=== PATIENT | female | born 1955 | race Caucasian/White ===

== ENCOUNTER 2016-12-03 19:31 | Inpatient (IN) ==
[2016-12-03] MEDS ORDERED: IPRATROPIUM/ALBUTEROL 3 ML AMPUL.NEB NEB ONE (19:38)
[2016-12-03] MEDS ORDERED: MAGNESIUM SULFATE 2 GM/50 ML BAG IV ONE (20:03)
[2016-12-03] MEDS ORDERED: TERBUTALINE 1 MG/ML VIAL SQ ONE (20:03)
[2016-12-03] MEDS ORDERED: methylPREDNISolone SOD SUCC 125 MG/2 ML VIAL IV ONE (20:03)
[2016-12-03] MEDS ORDERED: 0.9 % SODIUM CHLORIDE 1,000 ML IV ONE (20:03)
[2016-12-03] MEDS ORDERED: ALBUTEROL SULFATE 5 MG/ML NEB SOLUTION BOTTLE NEB ONE (20:04)
--- NOTE | 2016-12-03 20:25 | XRay Report ---
CLINICAL INFORMATION: Dyspnea TECHNIQUE: AP semierect portable chest six COMPARISON: None. FINDINGS: Lungs are negative. No focal pulmonary parenchymal infiltrate or mass. Heart size and vascularity are normal. Mattie and mediastinum are negative. No acute abnormality. IMPRESSION: Negative AP chest x-ray Interpreted and Authenticated by: Sergio Dominguez 12/03/16
[2016-12-03] MEDS ORDERED: MAGNESIUM SULFATE 8.12 MEQ/2 ML VIAL ONE (20:54)
[2016-12-03 21:32] LABS: ALT/SGPT 43 U/l (0-40); Albumin 3.9 gm/dL (3.2-5.2); Albumin/Globulin Ratio 1.4 (1.0-2.3); Alkaline Phosphatase 97 U/L (39-117); Blood Urea Nitrogen 9 mg/dl (8-23); Magnesium 1.8 mg/dL (1.6-2.5)
[2016-12-03] MEDS ORDERED: LORazepam 2 MG/ML VIAL IV ONE (21:39)
[2016-12-03 22:37] LABS: Basophils # (Auto) 0 K/mcL (0.0-0.3); Basophils % (Auto) 0.3 % (0.0-2.0); Eosinophils # (Auto) 0.1 K/mcL (0.0-0.7); Eosinophils % (Auto) 0.8 % (0.0-7.0); Granulocytes % (Auto) 74.5 % (38.0-78.0); Lymphocytes # (Auto) 1.7 K/mcL (1.5-4.8); Mean Cell Volume 75.2 fL (80.0-100.0); Mean Corpuscular HGB Conc 32.3 g/dL (31.0-36.0); Mean Corpuscular Hemoglobin 24.3 pg (26.0-34.0); Monocytes # (Auto) 0.2 K/mcL (0.1-0.9); Monocytes % (Auto) 2.4 % (1.0-12.0); Platelet Count 220 K/mcL (140-440); RBC 4.47 M/mcL (4.00-5.20); Red Cell Distribution Width 14.7 % (11.5-14.5)
[2016-12-03] MEDS ORDERED: ONDANSETRON 4 MG/2 ML VIAL IV PRN (23:38)
[2016-12-03] MEDS ORDERED: ACETAMINOPHEN 325 MG TABLET PO PRN (23:38)
[2016-12-03] MEDS ORDERED: ALBUTEROL SULFATE 2.5 MG/3 ML NEBULIZER NEB PRN (23:41)
[2016-12-03] MEDS ORDERED: 0.9 % SODIUM CHLORIDE 1,000 ML IV SCH (23:45)
[2016-12-04] MEDS ORDERED: BENZONATATE 100 MG CAPSULE PO ONE (00:06)
--- NOTE | 2016-12-04 00:06 | Emergency Department Note ---
SOB HPI - General Chief Complaint: Shortness of Breath/Dyspnea Stated Complaint: shortness of breathe Time Seen by Provider: 12/03/16 19:57 Source: patient, family Mode of arrival: wheelchair Limitations: no limitations - History of Present Illness 61-year-old female comes in with difficulty breathing and cough for the last 3 days. Worsening. Denies fever or home oxygen use. She recently moved here from [place] about 5 months ago and has been not taking any of her home medicines. She plans to establish care with local doctor in 4 days - Related Data Home Medications Medication Instructions Recorded Confirmed ferrous sulfate 325 mg (65 mg 325 mg PO TID tab 10/31/16 10/31/16 iron) tablet fluoxetine 40 mg capsule 80 mg PO QDAY 10/31/16 10/31/16 ipratropium bromide 17 2 inh INHALATION TID g 10/31/16 10/31/16 mcg/actuation HFA aerosol inhaler lisinopril 20 mg tablet 20 mg PO QDAY 10/31/16 10/31/16 lisinopril 20 1 tab PO QDAY 10/31/16 10/31/16 mg-hydrochlorothiazide 12.5 mg tablet metoprolol tartrate PO QHS 10/31/16 10/31/16 omeprazole 20 mg capsule,delayed 20 mg PO BID 10/31/16 10/31/16 release potassium chloride ER 10 mEq 20 meq PO BID tab 10/31/16 10/31/16 tablet,extended release(part/cryst) prednisone 20 mg tablet 40 mg PO QDAY 10/31/16 10/31/16 rosuvastatin 20 mg tablet 20 mg PO QHS tab 10/31/16 10/31/16 tramadol 50 mg tablet 50 mg PO TID PRN tab 10/31/16 10/31/16 Allergies Allergy/AdvReac Type Severity Reaction Status Date / Time fish derived Allergy Unknown Vomiting, Verified 12/03/16 19:43 rash, swelling Review of Systems All systems ED: reviewed and negative except as stated. Past Medical History - Past Medical History Attestation: Yes: The following information was validated with the patient. Medical history: Reports: asthma, COPD, GERD, hyperlipidemia, hypertension Surgical history ED: Reports: appendectomy, hysterectomy, lumpectomy, orthopedic , other (tumor removed left leg) - Social History smoking status: Current every day smoker Physical Exam Overweight female in some acute respiratory distress- modest relief single-dose DuoNeb, but not able to talk in complete sentences. Reassessed after 10 mg albuterol over 1 hour- significant relief but tachycardic and tremulous. Normocephalic atraumatic. Conjunctiva clear sclerae anicteric. No nasal discharge but some congestion. Oropharynx is somewhat dry. Neck is supple without lymphadenopathy or thyromegaly. Heart is regular rhythm but tachycardic. Lungs basically clear to auscultation but and expiratory wheeze and scattered rhonchi. Productive cough. Abdomen soft nontender nondistended. No pedal edema. +2 radial pulse. Alert oriented able to give me history. No ataxia but tremors - General Limitations: no limitations Course Vital Signs Temperature 100.7 F H 12/03/16 19:31 Pulse Rate 88 12/03/16 19:31 Respiratory Rate 26 H 12/03/16 19:31 Blood Pressure 155/82 12/03/16 19:31 Pulse Oximetry (%) 91 12/03/16 19:31 Temperature 99.5 F 12/03/16 23:18 Pulse Rate 103 H 12/03/16 22:31 Respiratory Rate 21 12/03/16 22:31 Blood Pressure 127/57 12/03/16 22:31 Pulse Oximetry (%) 95 12/03/16 22:31 Shortness of Breath/Dyspnea - Lab Data Lab results reviewed: Yes I reviewed the patient's lab results. Result diagrams: 12/03/16 21:56 12/03/16 20:27 Lab Results 12/03/16 12/03/16 12/03/16 Range/Units 20:27 20:27 20:27 WBC TNP RBC TNP Hgb TNP Hct TNP MCV TNP MCH TNP MCHC TNP RDW TNP Plt Count TNP MPV TNP Gran % (38.0-78.0) % Lymph % (Auto) (15.5-49.0) % [place] % (Auto) (1.0-12.0) % Eos % (Auto) (0.0-7.0) % Baso % (Auto) (0.0-2.0) % Gran # (1.8-8.0) K/mcL Lymph # (1.5-4.8) K/mcL [place] # (0.1-0.9) K/mcL Eos # (0.0-0.7) K/mcL Baso # (0.0-0.3) K/mcL Differential Comment TNP D-Dimer TNP VBG Lactic Acid (0.5-2.2) mmol/L Sodium 140 (133-145) mmol/L Potassium 3.8 (3.3-5.1) mmol/L Chloride 100 (96-108) mmol/L Carbon Dioxide 26 (22-30) mmol/L Anion Gap 14.0 (8-16) BUN 9 (8-23) mg/dl Creatinine 0.9 (0.6-1.1) mg/dl GFR Calculation 69 Glucose 141 H (70-105) mg/dL Calcium 9.1 (8.6-10.4) mg/dl Magnesium 1.8 (1.6-2.5) mg/dL Total Bilirubin 0.2 (0.0-1.0) mg/dL AST 35 (0-37) U/l ALT 43 H (0-40) U/l Alkaline Phosphatase 97 (39-117) U/L Troponin T (0-0.03) ng/ml Total Protein 6.7 (5.9-8.4) gm/dL Albumin 3.9 (3.2-5.2) gm/dL Globulin 2.8 (2.2-3.7) gm/dL Albumin/Globulin Ratio 1.4 (1.0-2.3) 12/03/16 12/03/16 12/03/16 Range/Units 20:27 20:27 21:21 WBC RBC Hgb Hct MCV MCH MCHC RDW Plt Count MPV Gran % (38.0-78.0) % Lymph % (Auto) (15.5-49.0) % [place] % (Auto) (1.0-12.0) % Eos % (Auto) (0.0-7.0) % Baso % (Auto) (0.0-2.0) % Gran # (1.8-8.0) K/mcL Lymph # (1.5-4.8) K/mcL Child[place] # (0.1-0.9) K/mcL Eos # (0.0-0.7) K/mcL Baso # (0.0-0.3) K/mcL Differential Comment D-Dimer 0.38 VBG Lactic Acid 1.8 (0.5-2.2) mmol/L Sodium (133-145) mmol/L Potassium (3.3-5.1) mmol/L Chloride (96-108) mmol/L Carbon Dioxide (22-30) mmol/L Anion Gap (8-16) BUN (8-23) mg/dl Creatinine (0.6-1.1) mg/dl GFR Calculation Glucose (70-105) mg/dL Calcium (8.6-10.4) mg/dl Magnesium (1.6-2.5) mg/dL Total Bilirubin (0.0-1.0) mg/dL AST (0-37) U/l ALT (0-40) U/l Alkaline Phosphatase (39-117) U/L Troponin T < 0.01 (0-0.03) ng/ml Total Protein (5.9-8.4) gm/dL Albumin (3.2-5.2) gm/dL Globulin (2.2-3.7) gm/dL Albumin/Globulin Ratio (1.0-2.3) 12/03/16 Range/Units 21:56 WBC 7.5 RBC 4.47 Hgb 10.9 L Hct 33.6 L MCV 75.2 L MCH 24.3 L MCHC 32.3 RDW 14.7 H Plt Count 220 MPV 8.9 Gran % 74.5 (38.0-78.0) % Lymph % (Auto) 22.0 (15.5-49.0) % Childress % (Auto) 2.4 (1.0-12.0) % Eos % (Auto) 0.8 (0.0-7.0) % Baso % (Auto) 0.3 (0.0-2.0) % Gran # 5.6 (1.8-8.0) K/mcL Lymph # 1.7 (1.5-4.8) K/mcL Child[place] # 0.2 (0.1-0.9) K/mcL Eos # 0.1 (0.0-0.7) K/mcL Baso # 0 (0.0-0.3) K/mcL Differential Comment D-Dimer VBG Lactic Acid (0.5-2.2) mmol/L Sodium (133-145) mmol/L Potassium (3.3-5.1) mmol/L Chloride (96-108) mmol/L Carbon Dioxide (22-30) mmol/L Anion Gap (8-16) BUN (8-23) mg/dl Creatinine (0.6-1.1) mg/dl GFR Calculation Glucose (70-105) mg/dL Calcium (8.6-10.4) mg/dl Magnesium (1.6-2.5) mg/dL Total Bilirubin (0.0-1.0) mg/dL AST (0-37) U/l ALT (0-40) U/l Alkaline Phosphatase (39-117) U/L Troponin T (0-0.03) ng/ml Total Protein (5.9-8.4) gm/dL Albumin (3.2-5.2) gm/dL Globulin (2.2-3.7) gm/dL Albumin/Globulin Ratio (1.0-2.3) aBG shows pH 7.47 PCO2 42 PO2 58 - Radiology Data Radiology results reviewed: Yes I reviewed the patient's radiology results. Chest x-ray shows no acute cardiopulmonary process - EKG Data EKG attestation: Yes I reviewed and interpreted this EKG. EKG results narrative: EKG shows a rate of 103 sinus tachycardia without evidence of ischemia Disposition Clinical Impression: Acute exacerbation of chronic obstructive airways disease Summary: Initially treated with DuoNeb and then with 10 mg albuterol over an hour with relief but significant side effect of tremulousness. She was also initially treated with magnesium rider, Solu-Medrol, normal saline IV fluids and terbutaline subcutaneous. Was working pretty hard to breathe so we temporarily put her on BiPAP, with Ativan for anxiolysis. ABG showed hypoxia but compensation with tachypnea. Laboratory showed mild likely iron deficiency anemia. she is febrile. Discussed situation with Dr. Jasmine, the hospitalist who agreed to accept provided she is not on BiPAP as we do not have an ICU bed available. Patient tolerated being off BiPAP without increased work of breathing-although she did say the BiPAP helped her. Admitted to Dr. Jasmine; transition orders written including Tylenol for fever and Tessalon for cough. Azithromycin as well Disposition: [facility] Condition: Fair Referrals: Kaylee Cabrera DO [Primary Care Provider] - Lion Calle MD [Physician] -
[2016-12-04] MEDS: HYDROcodone/APAP 5/325MG TABLET PO PRN ×2 (00:44→13:38)
[2016-12-04] MEDS: IPRATROPIUM/ALBUTEROL 3 ML AMPUL.NEB NEB SCH ×6 (02:52→23:12)
[2016-12-04] MEDS ORDERED: methylPREDNISolone SOD SUCC 125 MG/2 ML VIAL IV SCH (06:00)
[2016-12-04 06:57] LABS: Appearance,Urine CLEAR; Bacteria,Urine MOD /hpf (0); Bilirubin,Urine NEG (NEG); Color,Urine YELLOW; Glucose,Urine (UA) NEGATIVE (NEG); Leukocyte Esterase,Urine NEG /uL (NEG); Mucus,Urine FEW /hpf (0); Nitrate,Urine POS (NEG); Protein,Urine NEG (NEG); Specific Gravity,Urine 1.021 (1.000-1.035); Urine Blood 0.03 mg/dL (<0.03); Urine Hyaline Cast 4 /lpf (0-2); Urine RBC 1 /hpf (0-1); Urine Squamous Epithelial Cell < 1 /hpf (0-4); Urine WBC 1 /hpf (0-4); Urobilinogen,Urine NEG (NEG)
[2016-12-04 06:57] LABS: Hemoglobin A1C 5.7 % HGB (4.0-6.0)
[2016-12-04] MEDS ORDERED: ACETAMINOPHEN 1,000 MG/100 ML BOTTLE IV PRN (08:21)
[2016-12-04] MEDS ORDERED: MAGNESIUM SULFATE 2 GM/50 ML BAG IV PRN (08:21)
[2016-12-04] MEDS ORDERED: POTASSIUM CHLORIDE 20 MEQ PACKET PO PRN (08:21)
[2016-12-04] MEDS ORDERED: guaiFENesin/CODEINE 10 ML UDC PO PRN (08:21)
[2016-12-04] MEDS: methylPREDNISolone SOD SUCC 125 MG/2 ML VIAL IV SCH ×3 (08:40→22:36)
[2016-12-04] MEDS: AZITHROMYCIN 250 MG TABLET PO SCH (08:47)
[2016-12-04] MEDS: HEPARIN 5,000 UNIT/ML VIAL SQ SCH ×2 (08:47→20:13)
[2016-12-04] MEDS: MULTIVIT,THER IRON,CA,FA & MIN 1 TABLET PO SCH (08:47)
[2016-12-04] MEDS: DOCUSATE SODIUM 100 MG CAPSULE PO SCH ×2 (08:48→20:32)
[2016-12-04] MEDS ORDERED: cefTRIAXone 2 GM in DEXTROSE 5% IN WATER 50 ML IV SCH (09:00)
[2016-12-04] MEDS: 0.9 % SODIUM CHLORIDE 1,000 ML IV SCH (09:07)
[2016-12-04] MEDS: NICOTINE 21 MG PATCH TOPICAL SCH (09:14)
--- NOTE | 2016-12-04 09:33 | History and Physical Report ---
DATE OF ADMISSION: 12/04/2016 REASON FOR ADMISSION: Worsening shortness of breath. HISTORY OF CHIEF COMPLAINT: The patient is a 61-year-old with known history of [id number] history of smoking with COPD who comes to [facility] Emergency Room with worsening shortness of breath that has progressed over the last two days. The patient has associated increasing productive sputum, volume and purulence. She denies sick contacts. She apparently stopped smoking two days ago due to severe dyspnea, progressing at rest. She also endorses to low-grade fever, but denies rash, diarrhea, dysuria, headache, or photophobia. She does endorse to generalized weakness, but no myalgia, arthralgia, joint swelling, or glandular swelling. She denies any changes in medications. she is up-to-date on pneumonia vaccine but did not take flu shot. PAST MEDICAL HISTORY: 1. Anxiety disorder. 2. Iron deficiency anemia. 3. Hypertension. 4. Hyperlipidemia. 5. Degenerative joint disease. 6. Gastroesophageal reflux disease. ALLERGIES: None significant. SOCIAL HISTORY: [place] She carries over 40 to [id number] history of smoking. No history of alcoholism or substance abuse. She is FULL CODE STATUS. FAMILY HISTORY: Non-relevant to presenting symptoms. PAST SURGICAL HISTORY: 1. Appendectomy. 2. Hysterectomy. 3. Lumpectomy. 4. Left leg surgery. PHYSICAL EXAMINATION: GENERAL: The patient is alert, in significant distress, short of breath, unable to talk in full sentences. BMI 33.3. Height 5 feet 3 inches. VITAL SIGNS: Blood pressure 130/115, respiratory rate 17, temperature 100.7, sats 95% initially on BiPAP at 35% and subsequently 92% on 2 liters of oxygen. HEENT: Pupils symmetric. Oral cavity is dry. No ear or nose discharge. Head is normocephalic and atraumatic. NECK: No lymphadenopathy. HEART: S1, S2, tachycardia. ESM grade I. Prolonged expiratory phase with rhonchi, labored breathing. ABDOMEN: Soft and nontender. LOWER EXTREMITIES: No cyanosis or clubbing. No joint swelling. SKIN: No suspicious lesions. PSYCHIATRIC: Anxious, but alert. No agitation. NEURO: Nonfocal, moving all four extremities. Normal higher function. LABS AND IMAGING: White count 7.5, hemoglobin 10.9, platelets 220. D-dimer 0.38. Lactic acid 1.8. Sodium 140, potassium 3.8, creatinine 0.9. LFTs unremarkable. UA nitrite positive, moderate bacteria. Culture is pending. ASSESSMENT AND PLAN: A 61-year-old admitted with COPD exacerbation with hypoxic respiratory failure. 1. COPD exacerbation. Will be managed per guidelines. Bronchodilators, steroids, pulmonary toilet. 2. Hypoxic respiratory failure. Continue supplemental oxygen, likely secondary to above. 3. Mild uncomplicated UTI. Cultures pending. In light of fever, we will start patient on empiric Rocephin. 4. Other prior medical issues will be managed on home medications. PLAN FOR TODAY: 1. Admit as inpatient. 2. Management as above. 3. Preexisting medical conditions will start on home meds. AA:[email or web address] Job ID: [id number] Doc ID: [id number] Lion Cabrera DO MTDLisa
--- NOTE | 2016-12-04 10:03 | Internal Med Progress Note ---
Medical - PN: Subj Patient information: Note initiated : 12/04/16 at 10:03 am Service Date, if different from initiated Date: [] Patient: Alisson Gutierrez 61 y/o F admitted on 12/04/16 for shortness of breathe. Chief Complaint: [] Interval history: 12/03- atient admitted with COPD exacerbation with shortness of breath. long history of smoking carrying 50 pack year. Increased purulence volume obstructive along with dyspnea. chest x-ray no evidence of pneumonia. on bronchodilators steroids. Patient was initially on BiPAP with remarkable improvement and subsequently now on nasal cannula oxygen. Aggressive counseling performed for smoking cessation 12/04- patient doing well. No overnight events. No concerns per staff. On 2 L oxygen. Dyspnea much improved. On IV Solu-Medrol/nebulizers and bronchodilators. Aggressive counseling on smoking cessation/COPD management. Patient will require outpatient pulmonary function test to evaluate Gold's stage and subsequent graded treatment. - Constitutional Vitals: Vital Signs Temp Pulse Resp BP Pulse Ox 98.3 F 93 H 18 115/63 95 12/04/16 08:00 12/04/16 08:00 12/04/16 09:13 12/04/16 08:00 12/04/16 09:13 Period Temp Pulse Resp BP Sys/Tang Pulse Ox Last 24 Hr 97.5 F-98.3 F 84-99 16-24 106-129/63-64 93-96 Intake and Output 12/03/16 12/04/16 12/04/16 21:59 05:59 13:59 Intake Total 200 / 1200 832 / 832 Output Total 300 / 300 Balance 200 / 1200 532 / 532 Intake & Output: Intake & Output 12/03/16 12/04/16 12/04/16 21:59 05:59 13:59 Intake Total 200 / 1200 832 / 832 Output Total 300 / 300 Balance 200 / 1200 532 / 532 Intake: IV 832 / 832 Sodium Chloride 0.9% 1, 832 / 832 000 ml @ 100 mls/hr IV . Q10H [facility] Rx#:[id number] Oral 200 / 200 Output: Void Amount 300 / 300 Other: Meal Breakfast Percent of Meal Consumed 100% Feeding Ability Independent General appearance: cooperative, disheveled, moderate distress (SOB), obese Exam: labored breathing nondistended abdomen Mild anxiety no lymphedema or pallor Medical - PN: Obj Da - Labs CBC & Chem 7: 12/03/16 21:56 12/03/16 20:27 Labs: Abnormal Lab Results 12/04/16 06:32 Urine Occult Blood 0.03 A Urine Nitrate Pos A Urine Bacteria Mod A Hyaline Casts 4 H Meds: Medications Acetaminophen (Tylenol) 650 mg PO Q6HP PRN PRN Reason: PAIN/FEVER > 101 Acetaminophen/Hydrocodone Bitart ([place] 5/325mg) 1 tab PO Q4HP PRN PRN Reason: Pain Last Admin: 12/04/16 00:44 Dose: 1 tab Albuterol Sulfate (Ventolin) 2.5 mg NEB Q2HP PRN PRN Reason: Shortness Of Breath Last Admin: 12/04/16 00:44 Dose: 2.5 mg Albuterol/Ipratropium (Duoneb) 3 ml NEB Q4HRT [facility] Last Admin: 12/04/16 06:54 Dose: 3 ml Azithromycin (Zithromax) 250 mg PO DAILY [facility] Stop: 12/07/16 09:01 Last Admin: 12/04/16 08:47 Dose: 250 mg Budesonide (Pulmicort) 0.5 mg NEB Q12 [facility] Docusate Sodium (Colace) 100 mg PO BID [facility] Last Admin: 12/04/16 08:48 Dose: Not Given Guaifenesin/Codeine Phosphate (Robitussin Ac) 10 ml PO Q4HP PRN PRN Reason: Cough Heparin Sodium (Porcine) (Heparin) 5,000 unit SQ Q12 [facility] Last Admin: 12/04/16 08:47 Dose: 5,000 unit Magnesium Sulfate (Magnesium Sulfate) 2 gm in 50 mls @ 50 mls/hr IV UD PRN PRN Reason: MG = or < 1.7 Sodium Chloride (Sodium Chloride 0.9%) 1,000 mls @ 50 mls/hr IV .Q20H [facility] Stop: 12/06/16 20:29 Last Admin: 12/04/16 09:07 Dose: 50 mls/hr Acetaminophen (Ofirmev) 1,000 mg in 100 mls @ 200 mls/hr IV Q6HP PRN PRN Reason: PAIN/FEVER > 101 Ceftriaxone Sodium 2 gm/ (Dextrose) 50 mls @ 100 mls/hr IV Q24H [facility] Last Admin: 12/04/16 09:07 Dose: 100 mls/hr Iron Carb/Multivit/Gelatin Dynamite Packing Operator/Folic Acid (Multivitamin W/Minerals) 1 tab PO DAILY [facility] Last Admin: 12/04/16 08:47 Dose: 1 tab Methylprednisolone Sodium Succinate (Solu-Medrol) 40 mg IV Q8 [facility] Last Admin: 12/04/16 08:40 Dose: Not Given Nicotine (Nicoderm) 21 mg TOPICAL DAILY@1000 [facility] Last Admin: 12/04/16 09:14 Dose: 21 mg Ondansetron HCl (Zofran) 4 mg IV Q4HP PRN PRN Reason: Nausea And Vomiting Pneumococcal Polyvalent Vaccine (Pneumovax 23) 0.5 ml IM .ONCE ONE Stop: 12/05/16 10:01 Potassium Chloride (Klor-Con) 40 meq PO DAILYP PRN PRN Reason: K+ < 3.5 Senna/Docusate Sodium (Senna Plus Tablet) 1 tab PO HS [facility] Sodium Chloride (Saline Flush) 10 ml IV Q8 [facility] Trazodone HCl (Desyrel) 50 mg PO HSP PRN PRN Reason: Insomnia Medical - PN: A/P - Time Spent With Patient Total time spent is greater than 50% in coordination of care (as documented) at patient's floor/unit and/or counseling patient: 25 - 35 minutes (1) Acute exacerbation of chronic obstructive airways disease Status: Acute Assessment and plan: * COPD exacerbation with increased work of breathingResponded well to BiPAP initially and subsequentlyon oxygen along with bronchodilators IV steroids. * dyspnea with hypoxic respiratory failure-on 2 L oxygen. Scheduled outpatient primary function test to assess stage of COPD * Uncomplicated UTI- DC antibiotics * smoking dependence-continue nicotine patch * hypertension on lisinopril/metoprolol * anxiety disorder on fluoxetine * Hyperlipidemia on statin * GERD on PPI * prophylaxis on heparin plan * Continue COPD management per guidelines IV steroids/bronchodilators will return in oxygen * Smoking cessation counseling * DC antibiotics * Resume home meds For pre-existing medical conditions Current Visit: Yes Medical - PN: Qual - VTE Deep Vein Thrombosis/Pulmonary Embolism Present on Admission: No
[2016-12-04] MEDS: BUDESONIDE 0.5 MG/2 ML AMPUL.NEB NEB SCH ×2 (10:09→19:15)
[2016-12-04] MEDS ORDERED: LORazepam 1 MG TABLET ONE (13:38)
[2016-12-04] MEDS: 0.9 % SODIUM CHLORIDE 10 ML SYRINGE IV SCH ×2 (13:41→20:32)
[2016-12-04] MEDS: traZODone HCL 50 MG TABLET PO PRN (20:13)
[2016-12-04] MEDS: SENNOSIDES/DOCUSATE SODIUM 1 TAB TABLET PO SCH (20:32)
[2016-12-04] MEDS: LORazepam 1 MG TABLET PO PRN (21:20)
[2016-12-05] MEDS: IPRATROPIUM/ALBUTEROL 3 ML AMPUL.NEB NEB SCH ×6 (02:43→22:14)
[2016-12-05 05:25] LABS: Mean Cell Volume 74.7 fL (80.0-100.0); Mean Corpuscular Hemoglobin 24.6 pg (26.0-34.0); Platelet Count 249 K/mcL (140-440); RBC 4.35 M/mcL (4.00-5.20); Red Cell Distribution Width 14.8 % (11.5-14.5)
[2016-12-05] MEDS: methylPREDNISolone SOD SUCC 125 MG/2 ML VIAL IV SCH ×3 (05:42→21:42)
[2016-12-05] MEDS: 0.9 % SODIUM CHLORIDE 10 ML SYRINGE IV SCH ×3 (05:43→21:41)
[2016-12-05] MEDS: 0.9 % SODIUM CHLORIDE 1,000 ML IV SCH (05:56)
[2016-12-05 06:13] LABS: ALT/SGPT 28 U/l (0-40); Albumin 3.6 gm/dL (3.2-5.2); Albumin/Globulin Ratio 1.5 (1.0-2.3); Alkaline Phosphatase 84 U/L (39-117); Bilirubin,Direct < 0.2 mg/dL (0.0-0.3); Blood Urea Nitrogen 12 mg/dl (8-23); Gamma Glutamyl Transpeptidase 41 U/L (5-36); Magnesium 2.3 mg/dL (1.6-2.5); Uric Acid 4.5 mg/dL (2.5-8.0)
[2016-12-05 08:18] LABS: Band Neutrophils % 6 % (0-10); Hypochromasia 1+ (NONE SEEN); Lymphocytes % 3 % (15-49); Macrocytosis 2+ (NONE SEEN); Monocytes % (Manual) 3 % (1-12); Platelet Estimate NORMAL (NORMAL); RBC Morphology ABNORM (NORMAL); Segmented Neutrophils % 88 % (38-78)
[2016-12-05] MEDS: MULTIVIT,THER IRON,CA,FA & MIN 1 TABLET PO SCH (08:55)
[2016-12-05] MEDS: HEPARIN 5,000 UNIT/ML VIAL SQ SCH ×2 (08:55→21:44)
[2016-12-05] MEDS: AZITHROMYCIN 250 MG TABLET PO SCH (08:55)
[2016-12-05] MEDS: DOCUSATE SODIUM 100 MG CAPSULE PO SCH ×2 (08:55→21:44)
[2016-12-05] MEDS: BUDESONIDE 0.5 MG/2 ML AMPUL.NEB NEB SCH ×2 (08:57→19:21)
[2016-12-05] MEDS ORDERED: PNEUMOCOCCAL 23-VAL P-SAC VAC 0.5 ML VIAL IM ONE (10:00)
[2016-12-05] MEDS ORDERED: traMADol 50 MG TABLET PO PRN ×2 (10:06→10:09)
--- NOTE | 2016-12-05 10:06 | Internal Med Progress Note ---
Medical - PN: Subj Patient information: Note initiated : 12/05/16 at 10:02 am Service Date, if different from initiated Date: [] Patient: Alisson Gutierrez 61 y/o F admitted on 12/04/16 for SOB/COPD Exacerbation w/ Hypoxic RespiratoryFailure. Chief Complaint: [] Interval history: 12/03- atient admitted with COPD exacerbation with shortness of breath. long history of smoking carrying 50 pack year. Increased purulence volume obstructive along with dyspnea. chest x-ray no evidence of pneumonia. on bronchodilators steroids. Patient was initially on BiPAP with remarkable improvement and subsequently now on nasal cannula oxygen. Aggressive counseling performed for smoking cessation 12/04- patient doing well. No overnight events. No concerns per staff. On 2 L oxygen. Dyspnea much improved. On IV Solu-Medrol/nebulizers and bronchodilators. Aggressive counseling on smoking cessation/COPD management. Patient will require outpatient pulmonary function test to evaluate Gold's stage and subsequent graded treatment. 12/05- patient feels remarkably short of breath and increasing cough. White count 15,000 likely secondary to IV steroids. atient has been afebrile since admission. On 2 L oxygen sats 95%. Profound exertional dyspnea limiting activity. Continue bronchodilators and pulmonary toilet. GNR on urine ut no pyuria. uncomplicated with asymptomatic bacteriuria not mandating antibiotics treatment. Continue supportive measures and possible discharge in 48 hours on an outpatient steroids bronchodilators and pulmonology follow-up. - Constitutional Vitals: Vital Signs Temp Pulse Resp BP Pulse Ox 97.2 F L 12 L 16 130/69 95 12/05/16 06:53 12/05/16 07:19 12/05/16 07:16 12/05/16 06:53 12/05/16 07:20 Period Temp Pulse Resp BP Sys/Tang Pulse Ox Last 24 Hr 97.2 F-98.6 F 12-104 16-24 104-130/56-71 93-97 Intake and Output 12/04/16 12/05/16 12/05/16 21:59 05:59 13:59 Intake Total 600 / 600 1400 / 1400 600 / 600 Output Total 775 / 775 950 / 950 Balance -175 / -175 450 / 450 600 / 600 Weight 188 lb Intake & Output: Intake & Output 12/04/16 12/05/16 12/05/16 21:59 05:59 13:59 Intake Total 600 / 600 1400 / 1400 600 / 600 Output Total 775 / 775 950 / 950 Balance -175 / -175 450 / 450 600 / 600 Weight 188 lb Intake: IV 1000 / 1000 Sodium Chloride 0.9% 1, 1000 / 1000 000 ml @ 50 mls/hr IV . Q20H [facility] Rx#:[id number] Oral 600 / 600 400 / 400 600 / 600 Output: Void Amount 775 / 775 950 / 950 Other: Meal Dinner Breakfast Percent of Meal Consumed 100% 100% Medical - PN: Obj Da - Labs CBC & Chem 7: 12/05/16 04:30 12/05/16 04:30 Labs: Abnormal Lab Results 12/05/16 12/05/16 12/04/16 04:30 04:30 06:32 WBC 15.2 H Hgb 10.7 L Hct 32.5 L MCV 74.7 L MCH 24.6 L RDW 14.8 H Seg Neutrophils % 88 H Lymphocytes % 3 L RBC Morphology Abnorm A Hypochromasia 1+ A Macrocytosis 2+ A Glucose 191 H GGT 41 H Urine Occult Blood 0.03 A Urine Nitrate Pos A Urine Bacteria Mod A Hyaline Casts 4 H Meds: Medications Acetaminophen (Tylenol) 650 mg PO Q6HP PRN PRN Reason: PAIN/FEVER > 101 Acetaminophen/Hydrocodone Bitart ([place] 5/325mg) 1 tab PO Q4HP PRN PRN Reason: Pain Last Admin: 12/04/16 13:38 Dose: 1 tab Albuterol Sulfate (Ventolin) 2.5 mg NEB Q2HP PRN PRN Reason: Shortness Of Breath Last Admin: 12/04/16 00:44 Dose: 2.5 mg Albuterol/Ipratropium (Duoneb) 3 ml NEB Q4HRT [facility] Last Admin: 12/05/16 06:53 Dose: 3 ml Azithromycin (Zithromax) 250 mg PO DAILY [facility] Stop: 12/07/16 09:01 Last Admin: 12/05/16 08:55 Dose: 250 mg Budesonide (Pulmicort) 0.5 mg NEB Q12 [facility] Last Admin: 12/05/16 08:57 Dose: Not Given Docusate Sodium (Colace) 100 mg PO BID [facility] Last Admin: 12/05/16 08:55 Dose: 100 mg Guaifenesin/Codeine Phosphate (Robitussin Ac) 10 ml PO Q4HP PRN PRN Reason: Cough Heparin Sodium (Porcine) (Heparin) 5,000 unit SQ Q12 [facility] Last Admin: 12/05/16 08:55 Dose: 5,000 unit Magnesium Sulfate (Magnesium Sulfate) 2 gm in 50 mls @ 50 mls/hr IV UD PRN PRN Reason: MG = or < 1.7 Sodium Chloride (Sodium Chloride 0.9%) 1,000 mls @ 50 mls/hr IV .Q20H [facility] Stop: 12/06/16 20:29 Last Admin: 12/05/16 05:56 Dose: 50 mls/hr Acetaminophen (Ofirmev) 1,000 mg in 100 mls @ 200 mls/hr IV Q6HP PRN PRN Reason: PAIN/FEVER > 101 Iron Carb/Multivit/[place]/Folic Acid (Multivitamin W/Minerals) 1 tab PO DAILY [facility] Last Admin: 12/05/16 08:55 Dose: 1 tab Lorazepam (Ativan) 0.5 - 1 mg PO Q8HP PRN PRN Reason: ANXIETY/SEDATION Last Admin: 12/04/16 21:20 Dose: 1 mg Methylprednisolone Sodium Succinate (Solu-Medrol) 40 mg IV Q8 [facility] Last Admin: 12/05/16 05:42 Dose: 40 mg Nicotine (Nicoderm) 21 mg TOPICAL DAILY@1000 [facility] Last Admin: 12/04/16 09:14 Dose: 21 mg Ondansetron HCl (Zofran) 4 mg IV Q4HP PRN PRN Reason: Nausea And Vomiting Potassium Chloride (Klor-Con) 40 meq PO DAILYP PRN PRN Reason: K+ < 3.5 Senna/Docusate Sodium (Senna Plus Tablet) 1 tab PO HS [facility] Last Admin: 12/04/16 20:32 Dose: Not Given Sodium Chloride (Saline Flush) 10 ml IV Q8 [facility] Last Admin: 12/05/16 05:43 Dose: Not Given Trazodone HCl (Desyrel) 50 mg PO HSP PRN PRN Reason: Insomnia Last Admin: 12/04/16 20:13 Dose: 50 mg Medical - PN: A/P - Time Spent With Patient Total time spent is greater than 50% in coordination of care (as documented) at patient's floor/unit and/or counseling patient: 25 - 35 minutes (1) Acute exacerbation of chronic obstructive airways disease Status: Acute Assessment and plan: * COPD exacerbation with increased work of breathingResponded well to BiPAP initially and subsequentlyon oxygen along with bronchodilators IV steroids. * Dyspnea with hypoxic respiratory failure-on 2 L oxygen. schedule outpatient PFT * asymptomatic bacteriuria-no indication for antibiotics * Smoking dependence-continue nicotine patch * hypertension continue lisinopril/metoprolol. Systolics at 130 * anxiety disorder on fluoxetine * Hyperlipidemia on statin * GERD on PPI * prophylaxis on heparin plan * continue IV steroids/bronchodilators * possible discharge in 48 hours With outpatient pulmonology follow-up/PFTs * Smoking cessation counseling performed again today * DC antibiotics * continue pre-existing medical condition management on home meds Current Visit: Yes Medical - PN: Qual - VTE Deep Vein Thrombosis/Pulmonary Embolism Present on Admission: No
[2016-12-05] MEDS: NICOTINE 21 MG PATCH TOPICAL SCH (11:05)
[2016-12-05] MEDS: FERROUS SULFATE 325 MG TABLET PO SCH ×2 (12:22→17:21)
[2016-12-05] MEDS: HYDROcodone/APAP 5/325MG TABLET PO PRN ×2 (14:25→21:43)
[2016-12-05] MEDS: LORazepam 1 MG TABLET PO PRN (16:30)
[2016-12-05] MEDS: POTASSIUM CHLORIDE 20 MEQ TABLET PO SCH (17:21)
[2016-12-05] MEDS: PANTOPRAZOLE 40 MG TABLET PO SCH (17:21)
[2016-12-05] MEDS ORDERED: ATORVASTATIN 20 MG TABLET PO SCH (21:00)
[2016-12-05] MEDS ORDERED: METOPROLOL TARTRATE 25 MG TABLET PO SCH (21:00)
[2016-12-05] MEDS: traZODone HCL 50 MG TABLET PO PRN (21:42)
[2016-12-05] MEDS: SENNOSIDES/DOCUSATE SODIUM 1 TAB TABLET PO SCH (21:43)
[2016-12-06] MEDS: 0.9 % SODIUM CHLORIDE 1,000 ML IV SCH (01:12)
[2016-12-06] MEDS: IPRATROPIUM/ALBUTEROL 3 ML AMPUL.NEB NEB SCH ×6 (03:21→23:31)
[2016-12-06] MEDS: LORazepam 1 MG TABLET PO PRN ×2 (04:06→22:50)
[2016-12-06] MEDS: HYDROcodone/APAP 5/325MG TABLET PO PRN (04:07)
[2016-12-06] MEDS: 0.9 % SODIUM CHLORIDE 10 ML SYRINGE IV SCH ×3 (05:37→20:39)
[2016-12-06 05:48] LABS: Mean Cell Volume 75.3 fL (80.0-100.0); Mean Corpuscular Hemoglobin 24.1 pg (26.0-34.0); Platelet Count 289 K/mcL (140-440); RBC 4.45 M/mcL (4.00-5.20); Red Cell Distribution Width 14.8 % (11.5-14.5)
[2016-12-06] MEDS: methylPREDNISolone SOD SUCC 125 MG/2 ML VIAL IV SCH ×3 (05:58→22:50)
[2016-12-06 06:18] LABS: ALT/SGPT 40 U/l (0-40); Albumin 3.6 gm/dL (3.2-5.2); Albumin/Globulin Ratio 1.4 (1.0-2.3); Alkaline Phosphatase 86 U/L (39-117); Bilirubin,Direct < 0.2 mg/dL (0.0-0.3); Blood Urea Nitrogen 16 mg/dl (8-23); Gamma Glutamyl Transpeptidase 79 U/L (5-36); Magnesium 2.1 mg/dL (1.6-2.5); Uric Acid 3.9 mg/dL (2.5-8.0)
[2016-12-06] MEDS: BUDESONIDE 0.5 MG/2 ML AMPUL.NEB NEB SCH ×2 (07:13→21:45)
[2016-12-06] MEDS: FERROUS SULFATE 325 MG TABLET PO SCH ×3 (07:26→17:18)
[2016-12-06] MEDS: PANTOPRAZOLE 40 MG TABLET PO SCH ×2 (07:26→17:18)
[2016-12-06] MEDS: POTASSIUM CHLORIDE 20 MEQ TABLET PO SCH ×2 (07:26→17:18)
--- NOTE | 2016-12-06 07:29 | XRay Report ---
CLINICAL INFORMATION: Dyspnea. COPD. TECHNIQUE: AP portable chest x-ray COMPARISON: 12/03/2016 FINDINGS: Mild biapical pulmonary parenchymal infiltrate. Findings are subtle and continued follow-up recommended. No other focal pulmonary parenchymal abnormalities. No evidence for congestive heart failure IMPRESSION: Mild biapical pulmonary parenchymal infiltrate. Interpreted and Authenticated by: Sergio Dominguez 12/06/16
[2016-12-06 08:35] LABS: Band Neutrophils % 1 % (0-10); Hypochromasia 1+ (NONE SEEN); Lymphocytes % 3 % (15-49); Monocytes % (Manual) 1 % (1-12); Myelocytes % 1 % (0-0); Platelet Estimate NORMAL (NORMAL); RBC Morphology ABNORM (NORMAL); Segmented Neutrophils % 94 % (38-78)
[2016-12-06] MEDS ORDERED: LISINOPRIL 20 MG TABLET PO SCH (09:00)
[2016-12-06] MEDS ORDERED: FLUoxetine HCL 20 MG CAPSULE PO SCH (09:00)
[2016-12-06] MEDS: MULTIVIT,THER IRON,CA,FA & MIN 1 TABLET PO SCH (09:16)
[2016-12-06] MEDS: DOCUSATE SODIUM 100 MG CAPSULE PO SCH ×2 (09:17→20:51)
[2016-12-06] MEDS: AZITHROMYCIN 250 MG TABLET PO SCH (09:17)
[2016-12-06] MEDS: NICOTINE 21 MG PATCH TOPICAL SCH ×2 (09:18→17:45)
[2016-12-06] MEDS: HEPARIN 5,000 UNIT/ML VIAL SQ SCH ×2 (09:18→20:51)
[2016-12-06] MEDS ORDERED: MAGNESIUM SULFATE 2 GM/50 ML BAG IV PRN (09:33)
[2016-12-06] MEDS ORDERED: ACETAMINOPHEN 1,000 MG/100 ML BOTTLE IV PRN (09:33)
[2016-12-06] MEDS ORDERED: ONDANSETRON 4 MG/2 ML VIAL IV PRN (09:33)
[2016-12-06] MEDS ORDERED: HYDROcodone/APAP 5/325MG TABLET PO PRN (09:33)
[2016-12-06] MEDS ORDERED: ACETAMINOPHEN 325 MG TABLET PO PRN (09:33)
[2016-12-06] MEDS ORDERED: POTASSIUM CHLORIDE 20 MEQ PACKET PO PRN (09:33)
[2016-12-06] MEDS ORDERED: ALBUTEROL SULFATE 2.5 MG/3 ML NEBULIZER NEB PRN (09:33)
[2016-12-06] MEDS ORDERED: 0.9 % SODIUM CHLORIDE 1,000 ML IV SCH (09:33)
[2016-12-06] MEDS ORDERED: traMADol 50 MG TABLET PO PRN (09:33)
--- NOTE | 2016-12-06 14:12 | Internal Med Progress Note ---
Medical - PN: Subj Patient information: Note initiated : 12/06/16 at 2:10 pm Service Date, if different from initiated Date: [] Patient: Alisson Gutierrez 61 y/o F admitted on 12/04/16 for SOB/COPD Exacerbation w/ Hypoxic RespiratoryFailure. Chief Complaint: [] Interval history: 12/03- atient admitted with COPD exacerbation with shortness of breath. long history of smoking carrying 50 pack year. Increased purulence volume obstructive along with dyspnea. chest x-ray no evidence of pneumonia. on bronchodilators steroids. Patient was initially on BiPAP with remarkable improvement and subsequently now on nasal cannula oxygen. Aggressive counseling performed for smoking cessation 12/04- patient doing well. No overnight events. No concerns per staff. On 2 L oxygen. Dyspnea much improved. On IV Solu-Medrol/nebulizers and bronchodilators. Aggressive counseling on smoking cessation/COPD management. Patient will require outpatient pulmonary function test to evaluate Gold's stage and subsequent graded treatment. 12/05- patient feels remarkably short of breath and increasing cough. White count 15,000 likely secondary to IV steroids. atient has been afebrile since admission. On 2 L oxygen sats 95%. Profound exertional dyspnea limiting activity. Continue bronchodilators and pulmonary toilet. GNR on urine ut no pyuria. uncomplicated with asymptomatic bacteriuria not mandating antibiotics treatment. Continue supportive measures and possible discharge in 48 hours on an outpatient steroids bronchodilators and pulmonology follow-up. 12/06-Patient remarkably short of breath and unable to even move in bed. Blood gas 7.42/40/60. Started on BiPAP. Transfer to telemetry. Extremely dyspneic and diaphoretic. High-risk mortality. Continue bronchodilators steroids and supplemental oxygen/noninvasive ventilation. - Constitutional Vitals: Vital Signs Temp Pulse Resp BP Pulse Ox 97.5 F L 82 20 130/74 96 12/06/16 12:15 12/06/16 12:15 12/06/16 12:15 12/06/16 12:15 12/06/16 12:15 Period Temp Pulse Resp BP Sys/Tang Pulse Ox Last 24 Hr 97.5 F-98.9 F 73-93 12-24 125-150/63-85 92-98 Intake and Output 12/06/16 12/06/16 12/06/16 05:59 13:59 21:59 Intake Total 1213 / 1213 Output Total 650 / 650 550 / 550 Balance 563 / 563 -550 / -550 Intake & Output: Intake & Output 12/06/16 12/06/16 12/06/16 05:59 13:59 21:59 Intake Total 1213 / 1213 Output Total 650 / 650 550 / 550 Balance 563 / 563 -550 / -550 Intake: IV 963 / 963 Sodium Chloride 0.9% 1, 963 / 963 000 ml @ 50 mls/hr IV . Q20H [facility] Rx#:[id number] Oral 250 / 250 Output: Void Amount 650 / 650 550 / 550 General appearance: disheveled, severe distress (short of breath) Exam: labored breathing Appears fatigued and listless and lethargic nondistended abdomen No pallor Medical - PN: Obj Da - Labs CBC & Chem 7: 12/06/16 04:35 12/06/16 04:35 Labs: Abnormal Lab Results 12/06/16 12/06/16 12/05/16 04:35 04:35 04:30 WBC 13.9 H Hgb 10.7 L Hct 33.5 L MCV 75.3 L MCH 24.1 L RDW 14.8 H Seg Neutrophils % 94 H Lymphocytes % 3 L Myelocytes % 1 H RBC Morphology Abnorm A Hypochromasia 1+ A Microcytosis 1+ A Macrocytosis Glucose 144 H 191 H GGT 79 H 41 H Urine Occult Blood Urine Nitrate Urine Bacteria Hyaline Casts 12/05/16 12/04/16 04:30 06:32 WBC 15.2 H Hgb 10.7 L Hct 32.5 L MCV 74.7 L MCH 24.6 L RDW 14.8 H Seg Neutrophils % 88 H Lymphocytes % 3 L Myelocytes % RBC Morphology Abnorm A Hypochromasia 1+ A Microcytosis Macrocytosis 2+ A Glucose GGT Urine Occult Blood 0.03 A Urine Nitrate Pos A Urine Bacteria Mod A Hyaline Casts 4 H Meds: Medications Acetaminophen (Tylenol) 650 mg PO Q6HP PRN PRN Reason: PAIN/FEVER > 101 Acetaminophen/Hydrocodone Bitart (Jarrell 5/325mg) 1 tab PO Q4HP PRN PRN Reason: Pain Albuterol Sulfate (Ventolin) 2.5 mg NEB Q2HP PRN PRN Reason: Shortness Of Breath Last Admin: 12/06/16 09:44 Dose: 2.5 mg Albuterol/Ipratropium (Duoneb) 3 ml NEB Q4HRT [facility] Last Admin: 12/06/16 11:46 Dose: 3 ml Atorvastatin Calcium (Lipitor) 40 mg PO HS [facility] Azithromycin (Zithromax) 250 mg PO DAILY [facility] Stop: 12/07/16 09:01 Budesonide (Pulmicort) 0.5 mg NEB Q12 [facility] Docusate Sodium (Colace) 100 mg PO BID [facility] Ferrous Sulfate (Ferrous Sulfate) 325 mg PO TIDCC [facility] Last Admin: 12/06/16 13:26 Dose: Not Given Fluoxetine HCl (Prozac) 80 mg PO DAILY [facility] Guaifenesin/Codeine Phosphate (Robitussin Ac) 10 ml PO Q4HP PRN PRN Reason: Cough Heparin Sodium (Porcine) (Heparin) 5,000 unit SQ Q12 [facility] Magnesium Sulfate (Magnesium Sulfate) 2 gm in 50 mls @ 50 mls/hr IV UD PRN PRN Reason: MG = or < 1.7 Sodium Chloride (Sodium Chloride 0.9%) 1,000 mls @ 50 mls/hr IV .Q20H [facility] Stop: 12/06/16 20:29 Acetaminophen (Ofirmev) 1,000 mg in 100 mls @ 200 mls/hr IV Q6HP PRN PRN Reason: PAIN/FEVER > 101 Iron Carb/Multivit/Abiquiu/Folic Acid (Multivitamin W/Minerals) 1 tab PO DAILY [facility] Lisinopril (Zestril) 20 mg PO QDAY [facility] Lorazepam (Ativan) 0.5 - 1 mg PO Q8HP PRN PRN Reason: ANXIETY/SEDATION Methylprednisolone Sodium Succinate (Solu-Medrol) 40 mg IV Q8 [facility] Metoprolol Tartrate (Lopressor) 25 mg PO HS [facility] Nicotine (Nicoderm) 21 mg TOPICAL DAILY@1000 [facility] Ondansetron HCl (Zofran) 4 mg IV Q4HP PRN PRN Reason: Nausea And Vomiting Pantoprazole Sodium (Protonix) 40 mg PO BIDAC [facility] Potassium Chloride (Klor-Con) 40 meq PO DAILYP PRN PRN Reason: K+ < 3.5 Potassium Chloride (Kdur) 20 meq PO BIDCC [facility] Senna/Docusate Sodium (Senna Plus Tablet) 1 tab PO HS [facility] Sodium Chloride (Saline Flush) 10 ml IV Q8 [facility] Tramadol HCl (Ultram) 50 mg PO TIDP PRN PRN Reason: Pain Trazodone HCl (Desyrel) 50 mg PO HSP PRN PRN Reason: Insomnia Medical - PN: A/P - Time Spent With Patient Total time spent is greater than 50% in coordination of care (as documented) at patient's floor/unit and/or counseling patient: 25 - 35 minutes (1) Acute exacerbation of chronic obstructive airways disease Status: Acute Assessment and plan: * COPD exacerbation with increased work of breathing- not responding to conventional treatment.. Start noninvasive ventilation. Transfer to telemetry. continue bronchodilators, IV steroids. * severe dyspnea with hypoxic respiratory failure- now on BiPAP * asymptomatic bacteriuria-no indication for antibiotics * Smoking dependence-continue nicotine patch * hypertension continue lisinopril/metoprolol. Systolics at goal * anxiety disorder on fluoxetine * Hyperlipidemia on statin * GERD on PPI * prophylaxis on heparin plan * continue IV steroids/bronchodilators * transfer to telemetry * start noninvasive ventilation * nicotine patch * continue pre-existing medical condition management on home meds Current Visit: Yes Medical - PN: Qual - VTE Deep Vein Thrombosis/Pulmonary Embolism Present on Admission: No
[2016-12-06] MEDS: ATORVASTATIN 20 MG TABLET PO SCH (20:50)
[2016-12-06] MEDS: SENNOSIDES/DOCUSATE SODIUM 1 TAB TABLET PO SCH (20:51)
[2016-12-06] MEDS: METOPROLOL TARTRATE 25 MG TABLET PO SCH (20:51)
[2016-12-06] MEDS ORDERED: traZODone HCL 50 MG TABLET PO PRN (21:00)
[2016-12-07] MEDS: IPRATROPIUM/ALBUTEROL 3 ML AMPUL.NEB NEB SCH ×6 (02:37→22:25)
[2016-12-07 05:44] LABS: Mean Corpuscular HGB Conc 32.6 g/dL (31.0-36.0); Mean Corpuscular Hemoglobin 24.5 pg (26.0-34.0); Platelet Count 278 K/mcL (140-440); RBC 4.55 M/mcL (4.00-5.20); Red Cell Distribution Width 15.1 % (11.5-14.5)
[2016-12-07 05:57] LABS: ALT/SGPT 56 U/l (0-40); Albumin 3.7 gm/dL (3.2-5.2); Albumin/Globulin Ratio 1.5 (1.0-2.3); Alkaline Phosphatase 89 U/L (39-117); Bilirubin,Direct < 0.2 mg/dL (0.0-0.3); Blood Urea Nitrogen 16 mg/dl (8-23); Gamma Glutamyl Transpeptidase 143 U/L (5-36); Magnesium 2.2 mg/dL (1.6-2.5); Uric Acid 3.9 mg/dL (2.5-8.0)
[2016-12-07 06:04] LABS: Band Neutrophils % 1 % (0-10); Hypochromasia 1+ (NONE SEEN); Lymphocytes % 9 % (15-49); Metamyelocytes % 1 % (0-0); Monocytes % (Manual) 2 % (1-12); Ovalocytes 1+ (NONE SEEN); Platelet Estimate NORMAL (NORMAL); RBC Morphology ABNORM (NORMAL); Segmented Neutrophils % 87 % (38-78)
[2016-12-07] MEDS: methylPREDNISolone SOD SUCC 125 MG/2 ML VIAL IV SCH ×3 (06:08→21:58)
[2016-12-07] MEDS: 0.9 % SODIUM CHLORIDE 10 ML SYRINGE IV SCH ×3 (06:09→21:59)
[2016-12-07] MEDS: BUDESONIDE 0.5 MG/2 ML AMPUL.NEB NEB SCH ×3 (06:56→19:23)
[2016-12-07] MEDS: PANTOPRAZOLE 40 MG TABLET PO SCH ×2 (07:11→17:53)
[2016-12-07] MEDS: guaiFENesin/CODEINE 10 ML UDC PO PRN ×2 (07:14→18:48)
[2016-12-07] MEDS: FERROUS SULFATE 325 MG TABLET PO SCH ×3 (07:50→17:52)
[2016-12-07] MEDS: POTASSIUM CHLORIDE 20 MEQ TABLET PO SCH ×2 (07:53→18:11)
--- NOTE | 2016-12-07 08:40 | XRay Report ---
CLINICAL INFORMATION: Dyspnea TECHNIQUE: AP semierect portable chest x-ray COMPARISON: 12/06/2016 and 12/03/2016 FINDINGS: Previous examination demonstrated bilateral upper lobe infiltrates. These infiltrates are improved. Lungs are presently clear without focal consolidation. No discrete parenchymal mass. Heart size and vascularity are normal. No pulmonary edema. No pulmonary congestion. Mattie and mediastinum are negative. No pleural fluid. IMPRESSION: 1. Improved chest x-ray. 2. No focal abnormality. Interpreted and Authenticated by: Sergio Dominguez 12/07/16
[2016-12-07] MEDS ORDERED: AZITHROMYCIN 250 MG TABLET PO SCH (09:00)
[2016-12-07] MEDS: LISINOPRIL 20 MG TABLET PO SCH (09:39)
[2016-12-07] MEDS: MULTIVIT,THER IRON,CA,FA & MIN 1 TABLET PO SCH (09:39)
[2016-12-07] MEDS: DOCUSATE SODIUM 100 MG CAPSULE PO SCH ×2 (09:39→20:16)
[2016-12-07] MEDS: FLUoxetine HCL 20 MG CAPSULE PO SCH (09:40)
[2016-12-07] MEDS: NICOTINE 21 MG PATCH TOPICAL SCH (09:41)
[2016-12-07] MEDS: HEPARIN 5,000 UNIT/ML VIAL SQ SCH ×2 (09:41→20:15)
--- NOTE | 2016-12-07 11:07 | Internal Med Progress Note ---
Medical - PN: Subj Patient information: Note initiated : 12/07/16 at 11:04 am Service Date, if different from initiated Date: [] Patient: Alisson Gutierrez 61 y/o F admitted on 12/04/16 for SOB/COPD Exacerbation w/ Hypoxic RespiratoryFailure. Chief Complaint: [] Interval history: 12/03- Patient admitted with COPD exacerbation with shortness of breath. long history of smoking carrying 50 pack year. Increased purulence volume obstructive along with dyspnea. chest x-ray no evidence of pneumonia. on bronchodilators steroids. Patient was initially on BiPAP with remarkable improvement and subsequently now on nasal cannula oxygen. Aggressive counseling performed for smoking cessation 12/04- patient doing well. No overnight events. No concerns per staff. On 2 L oxygen. Dyspnea much improved. On IV Solu-Medrol/nebulizers and bronchodilators. Aggressive counseling on smoking cessation/COPD management. Patient will require outpatient pulmonary function test to evaluate Gold's stage and subsequent graded treatment. 12/05- patient feels remarkably short of breath and increasing cough. White count 15,000 likely secondary to IV steroids. atient has been afebrile since admission. On 2 L oxygen sats 95%. Profound exertional dyspnea limiting activity. Continue bronchodilators and pulmonary toilet. GNR on urine ut no pyuria. uncomplicated with asymptomatic bacteriuria not mandating antibiotics treatment. Continue supportive measures and possible discharge in 48 hours on an outpatient steroids bronchodilators and pulmonology follow-up. 12/06-Patient remarkably short of breath and unable to even move in bed. Blood gas 7.42/40/60. Started on BiPAP. Transfer to telemetry. Extremely dyspneic and diaphoretic. High-risk mortality. Continue bronchodilators steroids and supplemental oxygen/noninvasive ventilation. 12/07- patient remarkably short of breath however improved on BiPAP. Increase work of breathing. Unable to sleep overnight. Appears fatigued and lethargic and wiped out. Recheck blood gas. continue bronchodilators steroids. - Constitutional Vitals: Vital Signs Temp Pulse Resp BP Pulse Ox 98.1 F 72 28 H 163/83 92 12/07/16 07:35 12/07/16 07:35 12/07/16 07:35 12/07/16 07:35 12/07/16 07:35 Period Temp Pulse Resp BP Sys/Tang Pulse Ox Last 24 Hr 97.4 F-98.7 F 62-89 16-28 121-163/72-89 90-98 Intake and Output 12/06/16 12/07/16 12/07/16 21:59 05:59 13:59 Intake Total 360 / 360 240 / 240 Output Total 425 / 425 2350 / 2350 550 / 550 Balance -65 / -65 -2110 / -2110 -550 / -550 Weight 186 lb 6.4 oz Intake & Output: Intake & Output 12/06/16 12/07/16 12/07/16 21:59 05:59 13:59 Intake Total 360 / 360 240 / 240 Output Total 425 / 425 2350 / 2350 550 / 550 Balance -65 / -65 -2110 / -2110 -550 / -550 Weight 186 lb 6.4 oz Intake: Oral 360 / 360 240 / 240 Output: Urine Catheter Amount 2350 / 2350 Void Amount 425 / 425 550 / 550 Other: Meal Lunch Percent of Meal Consumed 75% Feeding Ability Assist with Tray Set Up General appearance: cooperative, moderate distress Exam: fatigue lethargic and listless On BiPAP Labored breathing Frequent spells of cough Anxious Medical - PN: Obj Da - Labs CBC & Chem 7: 12/07/16 04:03 12/07/16 04:03 Labs: Abnormal Lab Results 12/07/16 12/07/16 12/06/16 04:03 04:03 04:35 WBC Hgb 11.1 L Hct 34.1 L MCV 75.0 L MCH 24.5 L RDW 15.1 H Seg Neutrophils % 87 H Lymphocytes % 9 L Metamyelocytes % 1 H Myelocytes % RBC Morphology Abnorm A Hypochromasia 1+ A Microcytosis 1+ A Macrocytosis Ovalocytes 1+ A Glucose 148 H 144 H GGT 143 H 79 H AST 38 H ALT 56 H 12/06/16 12/05/16 12/05/16 04:35 04:30 04:30 WBC 13.9 H 15.2 H Hgb 10.7 L 10.7 L Hct 33.5 L 32.5 L MCV 75.3 L 74.7 L MCH 24.1 L 24.6 L RDW 14.8 H 14.8 H Seg Neutrophils % 94 H 88 H Lymphocytes % 3 L 3 L Metamyelocytes % Myelocytes % 1 H RBC Morphology Abnorm A Abnorm A Hypochromasia 1+ A 1+ A Microcytosis 1+ A Macrocytosis 2+ A Ovalocytes Glucose 191 H GGT 41 H AST ALT Meds: Medications Acetaminophen (Tylenol) 650 mg PO Q6HP PRN PRN Reason: PAIN/FEVER > 101 Acetaminophen/Hydrocodone Bitart (Belcher 5/325mg) 1 tab PO Q4HP PRN PRN Reason: Pain Albuterol Sulfate (Ventolin) 2.5 mg NEB Q2HP PRN PRN Reason: Shortness Of Breath Last Admin: 12/06/16 09:44 Dose: 2.5 mg Albuterol/Ipratropium (Duoneb) 3 ml NEB Q4HRT [facility] Last Admin: 12/07/16 06:55 Dose: 3 ml Atorvastatin Calcium (Lipitor) 40 mg PO HS [facility] Last Admin: 12/06/16 20:50 Dose: 40 mg Budesonide (Pulmicort) 0.5 mg NEB Q12 [facility] Last Admin: 12/07/16 06:56 Dose: 0.5 mg Docusate Sodium (Colace) 100 mg PO BID [facility] Last Admin: 12/07/16 09:39 Dose: Not Given Ferrous Sulfate (Ferrous Sulfate) 325 mg PO TIDCC [facility] Last Admin: 12/07/16 07:50 Dose: 325 mg Fluoxetine HCl (Prozac) 80 mg PO DAILY [facility] Last Admin: 12/07/16 09:40 Dose: 80 mg Guaifenesin (Mucinex) 600 mg PO BID [facility] Guaifenesin/Codeine Phosphate (Robitussin Ac) 10 ml PO Q4HP PRN PRN Reason: Cough Last Admin: 12/07/16 07:14 Dose: 10 ml Heparin Sodium (Porcine) (Heparin) 5,000 unit SQ Q12 [facility] Last Admin: 12/07/16 09:41 Dose: 5,000 unit Magnesium Sulfate (Magnesium Sulfate) 2 gm in 50 mls @ 50 mls/hr IV UD PRN PRN Reason: MG = or < 1.7 Acetaminophen (Ofirmev) 1,000 mg in 100 mls @ 200 mls/hr IV Q6HP PRN PRN Reason: PAIN/FEVER > 101 Iron Carb/Multivit/Speculator/Folic Acid (Multivitamin W/Minerals) 1 tab PO DAILY [facility] Last Admin: 12/07/16 09:39 Dose: 1 tab Lisinopril (Zestril) 20 mg PO QDAY [facility] Last Admin: 12/07/16 09:39 Dose: 20 mg Lorazepam (Ativan) 0.5 - 1 mg PO Q8HP PRN PRN Reason: ANXIETY/SEDATION Last Admin: 12/06/16 22:50 Dose: 0.5 mg Methylprednisolone Sodium Succinate (Solu-Medrol) 40 mg IV Q8 [facility] Last Admin: 12/07/16 06:08 Dose: 40 mg Metoprolol Tartrate (Lopressor) 25 mg PO HS [facility] Last Admin: 12/06/16 20:51 Dose: 25 mg Nicotine (Nicoderm) 21 mg TOPICAL DAILY@1000 [facility] Last Admin: 12/07/16 09:41 Dose: 21 mg Ondansetron HCl (Zofran) 4 mg IV Q4HP PRN PRN Reason: Nausea And Vomiting Pantoprazole Sodium (Protonix) 40 mg PO BIDAC [facility] Last Admin: 12/07/16 07:11 Dose: 40 mg Potassium Chloride (Klor-Con) 40 meq PO DAILYP PRN PRN Reason: K+ < 3.5 Potassium Chloride (Kdur) 20 meq PO BIDCC [facility] Last Admin: 12/07/16 07:53 Dose: Not Given Senna/Docusate Sodium (Senna Plus Tablet) 1 tab PO [facility] Last Admin: 12/06/16 20:51 Dose: 1 tab Sodium Chloride (Saline Flush) 10 ml IV Q8 [facility] Last Admin: 12/07/16 06:09 Dose: 10 ml Tramadol HCl (Ultram) 50 mg PO TIDP PRN PRN Reason: Pain Last Admin: 12/06/16 17:23 Dose: 50 mg Trazodone HCl (Desyrel) 50 mg PO HSP PRN PRN Reason: Insomnia Medical - PN: A/P - Time Spent With Patient Total time spent is greater than 50% in coordination of care (as documented) at patient's floor/unit and/or counseling patient: 25 - 35 minutes (1) Acute exacerbation of chronic obstructive airways disease Status: Acute Assessment and plan: * COPD exacerbation with increased work of breathing- responding to noninvasive ventilation. Continue BiPAP along with steroids supplemental oxygen and bronchodilators * Severe dyspnea with hypoxic respiratory failure- continue BiPAP . repeat ABG * Asymptomatic bacteriuria-no indication for treatment * Smoking dependence-continue nicotine patch * hypertension continue lisinopril/metoprolol. Systolics at goal * anxiety disorder on fluoxetine * Hyperlipidemia on statin * GERD on PPI * prophylaxis on heparin plan * continue noninvasive ventilation/IV steroids/bronchodilators * pre-existing medical condition management as above Current Visit: Yes Medical - PN: Qual - VTE Deep Vein Thrombosis/Pulmonary Embolism Present on Admission: No
[2016-12-07] MEDS: AMOXICILLIN/POTASSIUM CLAV 875 MG TABLET PO SCH (17:51)
[2016-12-07] MEDS: LORazepam 1 MG TABLET PO PRN (20:15)
[2016-12-07] MEDS: guaiFENesin 600 MG TAB.SR.12H PO SCH (20:15)
[2016-12-07] MEDS: METOPROLOL TARTRATE 25 MG TABLET PO SCH (20:15)
[2016-12-07] MEDS: SENNOSIDES/DOCUSATE SODIUM 1 TAB TABLET PO SCH (20:16)
[2016-12-07] MEDS: ATORVASTATIN 20 MG TABLET PO SCH (20:19)
[2016-12-08] MEDS: IPRATROPIUM/ALBUTEROL 3 ML AMPUL.NEB NEB SCH ×6 (02:49→22:44)
[2016-12-08] MEDS: methylPREDNISolone SOD SUCC 125 MG/2 ML VIAL IV SCH ×3 (05:32→21:44)
[2016-12-08] MEDS: 0.9 % SODIUM CHLORIDE 10 ML SYRINGE IV SCH ×3 (05:32→21:45)
[2016-12-08 05:58] LABS: Mean Cell Volume 74.9 fL (80.0-100.0); Mean Corpuscular HGB Conc 32.1 g/dL (31.0-36.0); Mean Corpuscular Hemoglobin 24.1 pg (26.0-34.0); Platelet Count 280 K/mcL (140-440); RBC 4.74 M/mcL (4.00-5.20); Red Cell Distribution Width 15.3 % (11.5-14.5)
[2016-12-08 06:26] LABS: ALT/SGPT 61 U/l (0-40); Albumin 3.6 gm/dL (3.2-5.2); Albumin/Globulin Ratio 1.4 (1.0-2.3); Alkaline Phosphatase 88 U/L (39-117); Bilirubin,Direct < 0.2 mg/dL (0.0-0.3); Blood Urea Nitrogen 17 mg/dl (8-23); Gamma Glutamyl Transpeptidase 151 U/L (5-36); Magnesium 2.3 mg/dL (1.6-2.5); Uric Acid 4.4 mg/dL (2.5-8.0)
[2016-12-08] MEDS: BUDESONIDE 0.5 MG/2 ML AMPUL.NEB NEB SCH ×2 (07:25→19:42)
[2016-12-08 07:33] LABS: Hypochromasia 1+ (NONE SEEN); Lymphocytes % 22 % (15-49); Monocytes % (Manual) 4 % (1-12); Myelocytes % 1 % (0-0); Ovalocytes 1+ (NONE SEEN); Platelet Estimate NORMAL (NORMAL); RBC Morphology ABNORM (NORMAL); Segmented Neutrophils % 73 % (38-78)
[2016-12-08] MEDS: FLUoxetine HCL 20 MG CAPSULE PO SCH (09:04)
[2016-12-08] MEDS: guaiFENesin 600 MG TAB.SR.12H PO SCH ×2 (09:04→21:43)
[2016-12-08] MEDS: AMOXICILLIN/POTASSIUM CLAV 875 MG TABLET PO SCH ×2 (09:04→17:58)
[2016-12-08] MEDS: HEPARIN 5,000 UNIT/ML VIAL SQ SCH ×2 (09:04→21:44)
[2016-12-08] MEDS: MULTIVIT,THER IRON,CA,FA & MIN 1 TABLET PO SCH (09:05)
[2016-12-08] MEDS: DOCUSATE SODIUM 100 MG CAPSULE PO SCH ×3 (09:05→21:44)
[2016-12-08] MEDS: LISINOPRIL 20 MG TABLET PO SCH (09:05)
[2016-12-08] MEDS: PANTOPRAZOLE 40 MG TABLET PO SCH ×2 (09:05→17:58)
[2016-12-08] MEDS: FERROUS SULFATE 325 MG TABLET PO SCH ×3 (09:05→17:58)
[2016-12-08] MEDS: POTASSIUM CHLORIDE 20 MEQ TABLET PO SCH ×2 (09:06→17:59)
[2016-12-08] MEDS: NICOTINE 21 MG PATCH TOPICAL SCH (09:07)
--- NOTE | 2016-12-08 14:47 | Internal Med Progress Note ---
Medical - PN: Subj Patient information: Note initiated : 12/08/16 at 2:47 pm Service Date, if different from initiated Date: [] Patient: Alisson Gutierrez 61 y/o F admitted on 12/04/16 for SOB/COPD Exacerbation w/ Hypoxic RespiratoryFailure. Chief Complaint: [] Interval history: 12/03- Patient admitted with COPD exacerbation with shortness of breath. long history of smoking carrying 50 pack year. Increased purulence volume obstructive along with dyspnea. chest x-ray no evidence of pneumonia. on bronchodilators steroids. Patient was initially on BiPAP with remarkable improvement and subsequently now on nasal cannula oxygen. Aggressive counseling performed for smoking cessation 12/04- patient doing well. No overnight events. No concerns per staff. On 2 L oxygen. Dyspnea much improved. On IV Solu-Medrol/nebulizers and bronchodilators. Aggressive counseling on smoking cessation/COPD management. Patient will require outpatient pulmonary function test to evaluate Gold's stage and subsequent graded treatment. 12/05- patient feels remarkably short of breath and increasing cough. White count 15,000 likely secondary to IV steroids. atient has been afebrile since admission. On 2 L oxygen sats 95%. Profound exertional dyspnea limiting activity. Continue bronchodilators and pulmonary toilet. GNR on urine ut no pyuria. uncomplicated with asymptomatic bacteriuria not mandating antibiotics treatment. Continue supportive measures and possible discharge in 48 hours on an outpatient steroids bronchodilators and pulmonology follow-up. 12/06-Patient remarkably short of breath and unable to even move in bed. Blood gas 7.42/40/60. Started on BiPAP. Transfer to telemetry. Extremely dyspneic and diaphoretic. High-risk mortality. Continue bronchodilators steroids and supplemental oxygen/noninvasive ventilation. 12/07- patient remarkably short of breath however improved on BiPAP. Increase work of breathing. Unable to sleep overnight. Appears fatigued and lethargic and wiped out. Recheck blood gas. continue bronchodilators steroids. december 08: The patient has been off BiPAP for several hours at a time, and seems to tolerate this. he is not especially short of breath at rest, but does have significantdyspnea with any exertion, such as getting up to a chair. -She admits that she was still smoking prior to admission. She reports she just has not figured out how to quit yet. -She continues to have a cough productive of whitish phlegm. She also notes some painin her chest and her abdomen with coughing, which is generally just a soreness. She is not particularly painful when she is not coughing. otherwise, she denies fever or chills, headaches or dizziness, sore throat chest heaviness or palpitations. She is aware of some wheezing. She denies abdominal pain, nausea or vomiting, diarrhea or constipation, dysuria. - Constitutional Vitals: Vital Signs Temp Pulse Resp BP Pulse Ox 97.9 F 81 18 113/73 98 12/08/16 12:00 12/08/16 12:00 12/08/16 12:00 12/08/16 12:00 12/08/16 12:00 Period Temp Pulse Resp BP Sys/Tang Pulse Ox Last 24 Hr 97.7 F-99.0 F 66-85 16-22 108-160/60-90 93-98 Intake and Output 12/08/16 12/08/16 12/08/16 05:59 13:59 21:59 Intake Total 120 / 120 Output Total 450 / 450 Balance -330 / -330 Intake & Output: Intake & Output 12/08/16 12/08/16 12/08/16 05:59 13:59 21:59 Intake Total 120 / 120 Output Total 450 / 450 Balance -330 / -330 Intake: Oral 120 / 120 Output: Void Amount 450 / 450 Other: Meal Lunch Percent of Meal Consumed 100% Feeding Ability Assist with Tray Set Up # Voids 650 on exam, she is in no acute distress. She was wearing a BiPAP mask when I enter the room, but is able to speak and breathing easily, after we remove it. Neck: Supple without obvious JVD. Cardiac exam: Shows regular rate and rhythm without murmurs, rubs, gallops. Lungs:There are soft wheezes heard throughout both lung adams. There is no accessory muscle use. Abdomen: Soft and nontender, with normal bowel sounds. Extremities:Show no significant edema. Neurologic exam:Is grossly nonfocal. Medical - PN: Obj Da - Labs CBC & Chem 7: 12/08/16 04:09 12/08/16 04:09 Labs: Abnormal Lab Results 12/08/16 12/08/16 12/07/16 04:09 04:09 04:03 WBC Hgb 11.4 L Hct 35.6 L MCV 74.9 L MCH 24.1 L RDW 15.3 H Seg Neutrophils % Lymphocytes % Metamyelocytes % Myelocytes % 1 H RBC Morphology Abnorm A Hypochromasia 1+ A Microcytosis 2+ A Ovalocytes 1+ A Glucose 143 H 148 H GGT 151 H 143 H AST 38 H ALT 61 H 56 H 12/07/16 12/06/16 12/06/16 04:03 04:35 04:35 WBC 13.9 H Hgb 11.1 L 10.7 L Hct 34.1 L 33.5 L MCV 75.0 L 75.3 L MCH 24.5 L 24.1 L RDW 15.1 H 14.8 H Seg Neutrophils % 87 H 94 H Lymphocytes % 9 L 3 L Metamyelocytes % 1 H Myelocytes % 1 H RBC Morphology Abnorm A Abnorm A Hypochromasia 1+ A 1+ A Microcytosis 1+ A 1+ A Ovalocytes 1+ A Glucose 144 H GGT 79 H AST ALT December 07: - Chest x-ray: Bilateral upper lobe infiltrates are improving. No pulmonary edema. -ABG, on 1 L nasal cannula:PH 7.42, PCO2 44, PO2 67, crit 28, O2 saturation 93% -sputum Gram stain, December 07:Moderate polys with mixed oral and pharyngeal organisms. No pathogens isolated so far 12/04: urine culture from December 04: Grew Klebsiella pneumonia which is resistant to ampicillin, but pansensitive otherwise. MRSA screen is negative. December 03: EKG: Shows sinus tachycardia at a rate of 104 Meds: Medications Acetaminophen (Tylenol) 650 mg PO Q6HP PRN PRN Reason: PAIN/FEVER > 101 Acetaminophen/Hydrocodone Bitart ([place] 5/325mg) 1 tab PO Q4HP PRN PRN Reason: Pain Albuterol Sulfate (Ventolin) 2.5 mg NEB Q2HP PRN PRN Reason: Shortness Of Breath Last Admin: 12/06/16 09:44 Dose: 2.5 mg Albuterol/Ipratropium (Duoneb) 3 ml NEB Q4HRT [facility] Last Admin: 12/08/16 11:28 Dose: 3 ml Amoxicillin/Clavulanate Potassium (Augmentin) 875 mg PO BIDCC [facility] Last Admin: 12/08/16 09:04 Dose: 875 mg Atorvastatin Calcium (Lipitor) 40 mg PO HS [facility] Last Admin: 12/07/16 20:19 Dose: 40 mg Budesonide (Pulmicort) 0.5 mg NEB Q12 [facility] Last Admin: 12/08/16 07:25 Dose: 0.5 mg Docusate Sodium (Colace) 100 mg PO BID [facility] Last Admin: 12/08/16 09:33 Dose: Not Given Ferrous Sulfate (Ferrous Sulfate) 325 mg PO TIDCC [facility] Last Admin: 12/08/16 12:53 Dose: 325 mg Fluoxetine HCl (Prozac) 80 mg PO DAILY [facility] Last Admin: 12/08/16 09:04 Dose: 80 mg Guaifenesin (Mucinex) 600 mg PO BID [facility] Last Admin: 12/08/16 09:04 Dose: 600 mg Guaifenesin/Codeine Phosphate (Robitussin Ac) 10 ml PO Q4HP PRN PRN Reason: Cough Last Admin: 12/07/16 18:48 Dose: 10 ml Heparin Sodium (Porcine) (Heparin) 5,000 unit SQ Q12 [facility] Last Admin: 12/08/16 09:04 Dose: 5,000 unit Magnesium Sulfate (Magnesium Sulfate) 2 gm in 50 mls @ 50 mls/hr IV UD PRN PRN Reason: MG = or < 1.7 Acetaminophen (Ofirmev) 1,000 mg in 100 mls @ 200 mls/hr IV Q6HP PRN PRN Reason: PAIN/FEVER > 101 Iron Carb/Multivit/[place]ia/Folic Acid (Multivitamin W/Minerals) 1 tab PO DAILY [facility] Last Admin: 12/08/16 09:05 Dose: 1 tab Lisinopril (Zestril) 20 mg PO QDAY [facility] Last Admin: 12/08/16 09:05 Dose: 20 mg Lorazepam (Ativan) 0.5 - 1 mg PO Q8HP PRN PRN Reason: ANXIETY/SEDATION Last Admin: 12/07/16 20:15 Dose: 0.5 mg Methylprednisolone Sodium Succinate (Solu-Medrol) 40 mg IV Q8 [facility] Last Admin: 12/08/16 05:32 Dose: 40 mg Metoprolol Tartrate (Lopressor) 25 mg PO HS [facility] Last Admin: 12/07/16 20:15 Dose: 25 mg Nicotine (Nicoderm) 21 mg TOPICAL DAILY@1000 [facility] Last Admin: 12/08/16 09:07 Dose: 21 mg Ondansetron HCl (Zofran) 4 mg IV Q4HP PRN PRN Reason: Nausea And Vomiting Pantoprazole Sodium (Protonix) 40 mg PO BIDAC [facility] Last Admin: 12/08/16 09:05 Dose: 40 mg Potassium Chloride (Klor-Con) 40 meq PO DAILYP PRN PRN Reason: K+ < 3.5 Potassium Chloride (Kdur) 20 meq PO BIDCC [facility] Last Admin: 12/08/16 09:06 Dose: Not Given Senna/Docusate Sodium (Senna Plus Tablet) 1 tab PO HS [facility] Last Admin: 12/07/16 20:16 Dose: Not Given Sodium Chloride (Saline Flush) 10 ml IV Q8 [facility] Last Admin: 12/08/16 05:32 Dose: 10 ml Tramadol HCl (Ultram) 50 mg PO TIDP PRN PRN Reason: Pain Last Admin: 12/06/16 17:23 Dose: 50 mg Trazodone HCl (Desyrel) 50 mg PO HSP PRN PRN Reason: Insomnia Medical - PN: A/P - Time Spent With Patient Total time spent is greater than 50% in coordination of care (as documented) at patient's floor/unit and/or counseling patient: 25 - 35 minutes - Narrative A/P Narrative: #1. Pulmonary -COPD. The patient has had moderate respiratory failure, treated with BiPAP Clinically, she seems to be improving. We will try to wean her off the BiPAP completely. Continue oxygen and bronchodilators as needed. Pulmonary toilet. -chest x-ray did actually showed pneumonia, and I think in view of her pulmonary dysfunction, we will cover her with oral Augmentin. -Mucinex added. Continue guaifenesin with codeine to help with coughing. -Start to wean steroids. #2.. Urinary tract infection.patient was originally treated with Rocephin. Urine grew pansensitive Klebsiella. -In view of UTI and ongoing purulent sputum, I will add Augmentin, to give her both better lung coverage and treat her UTI. #3. Infectious disease. -Patient presented with pneumonia. she is responding to treatment, with BiPAP, steroids, bronchodilators. She was initially thought not to have pneumonia, but was treated with Rocephin for a UTI. She seems to be improving. #4. Tobacco abuse. Patient was counseled again today, that she absolutely needs to give up the smoking. We talked about continued decline in pulmonary function.continue NicoDerm. #5. Hypertension. Continue lisinopril and metoprolol. #6. Anxiety. Continue Prozac.continue trazodone. #7. Hyperlipidemia. Continue statin. #8. gI. - GERD. Continue PPI. -LFTs mildly elevated. Continue to follow. #9. DVT prophylaxis:Subcutaneous heparin. #10. CODE STATUS: DNR. #11. Iron deficiency anemia. Approximately 25 minutes was spent today reviewing the patient's chart and test results, interviewing and examining her, reviewing plan of care with nursing staff, and writing orders. Medical - PN: Qual - VTE Deep Vein Thrombosis/Pulmonary Embolism Present on Admission: No
[2016-12-08] MEDS ORDERED: traZODone HCL 50 MG TABLET PO PRN (18:58)
[2016-12-08] MEDS ORDERED: HYDROcodone/APAP 5/325MG TABLET PO PRN (18:58)
[2016-12-08] MEDS ORDERED: MAGNESIUM SULFATE 2 GM/50 ML BAG IV PRN (18:58)
[2016-12-08] MEDS ORDERED: LORazepam 1 MG TABLET PO PRN (18:58)
[2016-12-08] MEDS ORDERED: ALBUTEROL SULFATE 2.5 MG/3 ML NEBULIZER NEB PRN (18:58)
[2016-12-08] MEDS ORDERED: ACETAMINOPHEN 325 MG TABLET PO PRN (18:58)
[2016-12-08] MEDS ORDERED: traMADol 50 MG TABLET PO PRN (18:58)
[2016-12-08] MEDS ORDERED: guaiFENesin/CODEINE 10 ML UDC PO PRN (18:58)
[2016-12-08] MEDS ORDERED: ONDANSETRON 4 MG/2 ML VIAL IV PRN (18:58)
[2016-12-08] MEDS ORDERED: POTASSIUM CHLORIDE 20 MEQ PACKET PO PRN (18:58)
[2016-12-08] MEDS ORDERED: IPRATROPIUM/ALBUTEROL 3 ML AMPUL.NEB NEB ONE (20:23)
[2016-12-08] MEDS ORDERED: BUDESONIDE 0.5 MG/2 ML AMPUL.NEB NEB ONE (20:23)
[2016-12-08] MEDS ORDERED: ATORVASTATIN 20 MG TABLET PO SCH (21:00)
[2016-12-08] MEDS ORDERED: methylPREDNISolone SOD SUCC 125 MG/2 ML VIAL IV SCH (21:00)
[2016-12-08] MEDS: METOPROLOL TARTRATE 25 MG TABLET PO SCH (21:43)
[2016-12-08] MEDS: SENNOSIDES/DOCUSATE SODIUM 1 TAB TABLET PO SCH (21:44)
[2016-12-09] MEDS: IPRATROPIUM/ALBUTEROL 3 ML AMPUL.NEB NEB SCH ×5 (03:38→19:56)
[2016-12-09 05:37] LABS: Mean Corpuscular HGB Conc 32.7 g/dL (31.0-36.0); Mean Corpuscular Hemoglobin 24.5 pg (26.0-34.0); Platelet Count 290 K/mcL (140-440); RBC 4.99 M/mcL (4.00-5.20); Red Cell Distribution Width 14.9 % (11.5-14.5)
[2016-12-09 05:52] LABS: ALT/SGPT 67 U/l (0-40); Albumin 3.7 gm/dL (3.2-5.2); Albumin/Globulin Ratio 1.5 (1.0-2.3); Alkaline Phosphatase 93 U/L (39-117); Bilirubin,Direct < 0.2 mg/dL (0.0-0.3); Blood Urea Nitrogen 20 mg/dl (8-23); Gamma Glutamyl Transpeptidase 156 U/L (5-36); Magnesium 2.4 mg/dL (1.6-2.5); Uric Acid 4.8 mg/dL (2.5-8.0)
[2016-12-09 06:32] LABS: Anisocytosis 1+ (NONE SEEN); Band Neutrophils % 1 % (0-10); Hypochromasia 1+ (NONE SEEN); Lymphocytes % 15 % (15-49); Monocytes % (Manual) 5 % (1-12); Ovalocytes 1+ (NONE SEEN); Platelet Estimate NORMAL (NORMAL); RBC Morphology ABNORM (NORMAL); Segmented Neutrophils % 77 % (38-78)
[2016-12-09] MEDS: PANTOPRAZOLE 40 MG TABLET PO SCH (07:31)
[2016-12-09] MEDS ORDERED: POTASSIUM CHLORIDE 20 MEQ TABLET PO SCH (08:00)
[2016-12-09] MEDS ORDERED: AMOXICILLIN/POTASSIUM CLAV 875 MG TABLET PO SCH (08:00)
[2016-12-09] MEDS: guaiFENesin 600 MG TAB.SR.12H PO SCH ×2 (08:25→20:22)
[2016-12-09] MEDS: LISINOPRIL 20 MG TABLET PO SCH (08:25)
[2016-12-09] MEDS: MULTIVIT,THER IRON,CA,FA & MIN 1 TABLET PO SCH (08:26)
[2016-12-09] MEDS: FLUoxetine HCL 20 MG CAPSULE PO SCH (08:26)
[2016-12-09] MEDS: FERROUS SULFATE 325 MG TABLET PO SCH ×2 (08:26→12:29)
[2016-12-09] MEDS: DOCUSATE SODIUM 100 MG CAPSULE PO SCH ×2 (08:27→20:22)
[2016-12-09] MEDS: BUDESONIDE 0.5 MG/2 ML AMPUL.NEB NEB SCH ×2 (09:08→19:56)
[2016-12-09] MEDS: HEPARIN 5,000 UNIT/ML VIAL SQ SCH ×2 (09:13→20:22)
[2016-12-09] MEDS: methylPREDNISolone SOD SUCC 125 MG/2 ML VIAL IV SCH (10:12)
[2016-12-09 10:21] LABS: Iron 79 mcg/dl (37-145); Transferrin % Saturation 25 % (15-50); Unsaturated Iron Binding 226 mcg/dL (112-346)
--- NOTE | 2016-12-09 11:06 | Internal Med Progress Note ---
Medical - PN: Subj Patient information: Note initiated : 12/09/16 at 11:06 am Service Date, if different from initiated Date: [] Patient: Alisson Gutierrez 61 y/o F admitted on 12/04/16 for SOB/COPD Exacerbation w/ Hypoxic RespiratoryFailure. Chief Complaint: [] Interval history: 12/03- Patient admitted with COPD exacerbation with shortness of breath. long history of smoking carrying 50 pack year. Increased purulence volume obstructive along with dyspnea. chest x-ray no evidence of pneumonia. on bronchodilators steroids. Patient was initially on BiPAP with remarkable improvement and subsequently now on nasal cannula oxygen. Aggressive counseling performed for smoking cessation 12/04- patient doing well. No overnight events. No concerns per staff. On 2 L oxygen. Dyspnea much improved. On IV Solu-Medrol/nebulizers and bronchodilators. Aggressive counseling on smoking cessation/COPD management. Patient will require outpatient pulmonary function test to evaluate Gold's stage and subsequent graded treatment. 12/05- patient feels remarkably short of breath and increasing cough. White count 15,000 likely secondary to IV steroids. atient has been afebrile since admission. On 2 L oxygen sats 95%. Profound exertional dyspnea limiting activity. Continue bronchodilators and pulmonary toilet. GNR on urine ut no pyuria. uncomplicated with asymptomatic bacteriuria not mandating antibiotics treatment. Continue supportive measures and possible discharge in 48 hours on an outpatient steroids bronchodilators and pulmonology follow-up. 12/06-Patient remarkably short of breath and unable to even move in bed. Blood gas 7.42/40/60. Started on BiPAP. Transfer to telemetry. Extremely dyspneic and diaphoretic. High-risk mortality. Continue bronchodilators steroids and supplemental oxygen/noninvasive ventilation. 12/07- patient remarkably short of breath however improved on BiPAP. Increase work of breathing. Unable to sleep overnight. Appears fatigued and lethargic and wiped out. Recheck blood gas. continue bronchodilators steroids. december 08: The patient has been off BiPAP for several hours at a time, and seems to tolerate this. She is not especially short of breath at rest, but does have significant dyspnea with any exertion, such as getting up to a chair. -She admits that she was still smoking prior to admission. She reports she just has not figured out how to quit yet. -She continues to have a cough productive of whitish phlegm. She also notes some painin her chest and her abdomen with coughing, which is generally just a soreness. She is not particularly painful when she is not coughing. otherwise, she denies fever or chills, headaches or dizziness, sore throat chest heaviness or palpitations. She is aware of some wheezing. She denies abdominal pain, nausea or vomiting, diarrhea or constipation, dysuria. December 09:Today, the patient's that she is feeling quite a bit better. She is quite excited that she was able to walk in the [place] and take a shower today. She is noticing much less dyspnea with exertion. She still has some chest soreness and abdominal soreness with coughing, but think she is coughing less. She is noticing that she is bringing up more phlegm though, when she does cough. -She has had 3 bowel movements so denies feeling constipated. -She otherwise denies fevers or chills, sore throat, chest pain or palpitations , nausea or vomiting diarrhea or constipation. -she is tolerating oral Augmentin, which should cover both pneumonia and her UTI. she denies dysuria. -LFTs are a bit elevated but she denies nausea or vomitingor other GI symptoms. -I quizzed her about it more closely today about her chronic anemia. She tells me she had a colonoscopy 2 years ago and is overdue for a follow-up but lost her insurance and so never scheduled that. - Constitutional Vitals: Vital Signs Temp Pulse Resp BP Pulse Ox 97.7 F 77 14 123/70 97 12/09/16 07:29 12/09/16 09:10 12/09/16 09:10 12/09/16 07:29 12/09/16 09:13 Period Temp Pulse Resp BP Sys/Tang Pulse Ox Last 24 Hr 97.7 F-98.4 F 62-81 11-20 113-144/64-96 94-98 Intake and Output 12/08/16 12/09/16 12/09/16 21:59 05:59 13:59 Intake Total 300 / 300 100 / 100 300 / 300 Balance 300 / 300 100 / 100 300 / 300 Weight 185 lb 4.8 oz Intake & Output: Intake & Output 12/08/16 12/09/16 12/09/16 21:59 05:59 13:59 Intake Total 300 / 300 100 / 100 300 / 300 Balance 300 / 300 100 / 100 300 / 300 Weight 185 lb 4.8 oz Intake: Oral 300 / 300 100 / 100 300 / 300 on exam,she is in very good spirit. She is in no acute distress. Neck is supple without obvious lymphadenopathy or JVD. Cardiac exam shows regular rate and rhythm. Lungs: Still have fairly diffuse soft wheezes but no accessory muscle use. Abdomen: Is soft and nontender. Extremities show no edema. Medical - PN: Obj Da - Labs CBC & Chem 7: 12/09/16 04:35 12/09/16 04:35 Labs: Abnormal Lab Results 12/09/16 12/09/16 12/08/16 04:35 04:35 04:09 Hgb Hct MCV 75.0 L MCH 24.5 L RDW 14.9 H Seg Neutrophils % Lymphocytes % Metamyelocytes % Myelocytes % RBC Morphology Abnorm A Hypochromasia 1+ A Anisocytosis 1+ A Microcytosis 1+ A Ovalocytes 1+ A Glucose 144 H 143 H Phosphorus 5.0 H GGT 156 H 151 H AST ALT 67 H 61 H 12/08/16 12/07/16 12/07/16 04:09 04:03 04:03 Hgb 11.4 L 11.1 L Hct 35.6 L 34.1 L MCV 74.9 L 75.0 L MCH 24.1 L 24.5 L RDW 15.3 H 15.1 H Seg Neutrophils % 87 H Lymphocytes % 9 L Metamyelocytes % 1 H Myelocytes % 1 H RBC Morphology Abnorm A Abnorm A Hypochromasia 1+ A 1+ A Anisocytosis Microcytosis 2+ A 1+ A Ovalocytes 1+ A 1+ A Glucose 148 H Phosphorus GGT 143 H AST 38 H ALT 56 H december 09:Iron studies were done today, and show iron level of 79, TIBC of 305, 25 % saturated. December 07: - Chest x-ray: Bilateral upper lobe infiltrates are improving. No pulmonary edema. -ABG, on 1 L nasal cannula:PH 7.42, PCO2 44, PO2 67, crit 28, O2 saturation 93% -sputum Gram stain, December 07:Moderate polys with mixed oral and pharyngeal organisms. No pathogens isolated so far 12/04: urine culture from December 04: Grew Klebsiella pneumonia which is resistant to ampicillin, but pansensitive otherwise. MRSA screen is negative. December 03: EKG: Shows sinus tachycardia at a rate of 104 Meds: Medications Acetaminophen (Tylenol) 650 mg PO Q6HP PRN PRN Reason: PAIN/FEVER > 101 Acetaminophen/Hydrocodone Bitart ([place] 5/325mg) 1 tab PO Q4HP PRN PRN Reason: Pain Albuterol Sulfate (Ventolin) 2.5 mg NEB Q2HP PRN PRN Reason: Shortness Of Breath Albuterol/Ipratropium (Duoneb) 3 ml NEB Q4HRT [facility] Last Admin: 12/09/16 11:04 Dose: 3 ml Amoxicillin/Clavulanate Potassium (Augmentin) 875 mg PO BIDCC [facility] Last Admin: 12/09/16 08:25 Dose: 875 mg Budesonide (Pulmicort) 0.5 mg NEB Q12 [facility] Last Admin: 12/09/16 09:08 Dose: 0.5 mg Docusate Sodium (Colace) 100 mg PO BID [facility] Last Admin: 12/09/16 08:27 Dose: 100 mg Ferrous Sulfate (Ferrous Sulfate) 325 mg PO TIDCC [facility] Last Admin: 12/09/16 08:26 Dose: 325 mg Fluoxetine HCl (Prozac) 80 mg PO DAILY [facility] Last Admin: 12/09/16 08:26 Dose: 80 mg Guaifenesin (Mucinex) 600 mg PO BID [facility] Last Admin: 12/09/16 08:25 Dose: 600 mg Guaifenesin/Codeine Phosphate (Robitussin Ac) 10 ml PO Q4HP PRN PRN Reason: Cough Heparin Sodium (Porcine) (Heparin) 5,000 unit SQ Q12 [facility] Last Admin: 12/09/16 09:13 Dose: 5,000 unit Magnesium Sulfate (Magnesium Sulfate) 2 gm in 50 mls @ 50 mls/hr IV UD PRN PRN Reason: MG = or < 1.7 Iron Carb/Multivit/[place]/Folic Acid (Multivitamin W/Minerals) 1 tab PO DAILY [facility] Last Admin: 12/09/16 08:26 Dose: 1 tab Lisinopril (Zestril) 20 mg PO QDAY [facility] Last Admin: 12/09/16 08:25 Dose: 20 mg Lorazepam (Ativan) 0.5 - 1 mg PO Q8HP PRN PRN Reason: ANXIETY/SEDATION Methylprednisolone Sodium Succinate (Solu-Medrol) 40 mg IV Q12 [facility] Last Admin: 12/09/16 10:12 Dose: 40 mg Metoprolol Tartrate (Lopressor) 25 mg PO HS [facility] Last Admin: 12/08/16 21:43 Dose: 25 mg Nicotine (Nicoderm) 21 mg TOPICAL DAILY@1000 [facility] Ondansetron HCl (Zofran) 4 mg IV Q4HP PRN PRN Reason: Nausea And Vomiting Pantoprazole Sodium (Protonix) 40 mg PO BIDAC [facility] Last Admin: 12/09/16 07:31 Dose: 40 mg Potassium Chloride (Klor-Con) 40 meq PO DAILYP PRN PRN Reason: K+ < 3.5 Potassium Chloride (Kdur) 20 meq PO BIDCC [facility] Last Admin: 12/09/16 08:25 Dose: 20 meq Senna/Docusate Sodium (Senna Plus Tablet) 1 tab PO HS [facility] Last Admin: 12/08/16 21:44 Dose: Not Given Sodium Chloride (Saline Flush) 10 ml IV Q8 [facility] Last Admin: 12/08/16 21:45 Dose: 10 ml Tramadol HCl (Ultram) 50 mg PO TIDP PRN PRN Reason: Pain Trazodone HCl (Desyrel) 50 mg PO HSP PRN PRN Reason: Insomnia Last Admin: 12/08/16 21:57 Dose: 50 mg Medical - PN: A/P - Time Spent With Patient Total time spent is greater than 50% in coordination of care (as documented) at patient's floor/unit and/or counseling patient: - Narrative A/P Narrative: #1. Pulmonary -COPD. The patient has had moderate respiratory failure, treated with BiPAP. She is now off BiPAP completely and seems to be doing quite well. -hange IV steroids to oral. -Continue Augmentin for pneumonia seen on chest x-ray. Continue Mucinex and guaifenesin. #2.. Urinary tract infection.patient was originally treated with Rocephin. Urine grew pansensitive Klebsiella. -patient is tolerating oral Augmentin. #3. Infectious disease. -Patient presented with pneumonia. she is responding to treatment, with BiPAP, steroids, bronchodilators. She was initially thought not to have pneumonia, but was treated with Rocephin for a UTI. -she has shown steady improvement on oral Augmentin. #4. Tobacco abuse. Patient was counseled that she absolutely needs to give up the smoking. We talked about continued decline in pulmonary function.continue NicoDerm. #5. Hypertension. Continue lisinopril and metoprolol. #6. Anxiety. Continue Prozac.continue trazodone. #7. Hyperlipidemia. Continue statin. #8. gI. - GERD. Continue PPI. -LFTs mildly elevated. Lipitor was held today. If these continue to climb, consider gallbladder ultrasound. #9. DVT prophylaxis:Subcutaneous heparin. #10. CODE STATUS: DNR. #11. Iron deficiency anemia. I reordered iron studies for today and they actually look pretty good. Continue multivitamin. -she should be referred back to GI, as it sounds like she is overduefor a follow -up colonoscopy. Approximately 25 minutes was spent today reviewing the patient's chart and test results, interviewing and examining her, reviewing plan of care with nursing staff, and writing orders. Medical - PN: Qual - VTE Deep Vein Thrombosis/Pulmonary Embolism Present on Admission: No
[2016-12-09] MEDS: NICOTINE 21 MG PATCH TOPICAL SCH (12:33)
[2016-12-09 18:43] LABS: ALT/SGPT 72 U/l (0-40); Albumin 3.9 gm/dL (3.2-5.2); Alkaline Phosphatase 95 U/L (39-117); Bilirubin,Direct < 0.2 mg/dL (0.0-0.3)
[2016-12-09] MEDS: METOPROLOL TARTRATE 25 MG TABLET PO SCH (20:22)
[2016-12-09] MEDS: SENNOSIDES/DOCUSATE SODIUM 1 TAB TABLET PO SCH (20:23)
[2016-12-09] MEDS: predniSONE 20 MG TABLET PO SCH (21:26)
[2016-12-09] MEDS: 0.9 % SODIUM CHLORIDE 10 ML SYRINGE IV SCH ×2 (22:33→22:34)
[2016-12-10] MEDS: IPRATROPIUM/ALBUTEROL 3 ML AMPUL.NEB NEB SCH ×4 (00:04→11:05)
[2016-12-10] MEDS: BUDESONIDE 0.5 MG/2 ML AMPUL.NEB NEB SCH (06:59)
[2016-12-10] MEDS: HEPARIN 5,000 UNIT/ML VIAL SQ SCH (08:11)
[2016-12-10] MEDS: PANTOPRAZOLE 40 MG TABLET PO SCH (08:12)
[2016-12-10] MEDS: FLUoxetine HCL 20 MG CAPSULE PO SCH (08:13)
[2016-12-10] MEDS: LISINOPRIL 20 MG TABLET PO SCH (08:13)
[2016-12-10] MEDS: 0.9 % SODIUM CHLORIDE 10 ML SYRINGE IV SCH (08:13)
[2016-12-10] MEDS: predniSONE 20 MG TABLET PO SCH (08:14)
[2016-12-10] MEDS: DOCUSATE SODIUM 100 MG CAPSULE PO SCH (08:14)
[2016-12-10] MEDS: MULTIVIT,THER IRON,CA,FA & MIN 1 TABLET PO SCH (08:14)
[2016-12-10] MEDS: guaiFENesin 600 MG TAB.SR.12H PO SCH (08:14)
[2016-12-10] MEDS: NICOTINE 21 MG PATCH TOPICAL SCH (09:30)
--- NOTE | 2016-12-10 11:49 | Discharge Summary ---
Medical - DS: Prov Patient information: Note initiated : 12/10/16 at 11:46 am Service Date, if different from initiated Date: [] Patient: Alisson Gutierrez 61 y/o F admitted on 12/04/16 for SOB/COPD Exacerbation w/ Hypoxic RespiratoryFailure. Chief Complaint: [] Date of admission: 12/04/16 00:23 Discharge date: 12/10/16 Primary care physician: Kaylee Cabrera DO Admitting clinician: Lion Calle Attending physician on discharge: Lori Anderson Medical - DS: Meds - Discharge Medications Prescriptions: Albuterol Sulfate [Ventolin] 2.5 mg NEB Q2HP PRN #30 unit PRN Reason: Shortness Of Breath Amoxicillin/Potassium Clav [Augmentin] 875 mg PO BIDCC #14 tablet FLUoxetine HCL [Fluoxetine HCl] 80 mg PO QDAY #30 tab guaiFENesin [Mucinex] 600 mg PO BID #20 tab guaiFENesin/CODEINE [Robitussin AC] 5 ml PO Q4HP PRN #150 ml PRN Reason: Cough Nicotine [Nicoderm] 21 mg TOPICAL DAILY@1000 #14 patch predniSONE [Prednisone] 10 mg PO UD #40 tablet Active and Home Medications: discharge medications: Prednisone taper: Initially 80 mg per day decrease by 10 mg per day. Albuterol nebulizer and unit dose albuterol, to use 3 times a day 5 days then change to when necessary Amoxicillin 875 mg 1 by mouth twice a day for the next 7 days Tylenol when necessary Ipratropium inhaler 3 times a day Iron sulfate 325 mg twice a day to 3 times a day Prozac 80 mg daily Mucinex 600 mg twice a day Guaifenesin with codeine every 4 hours when necessary Multivitamin withirondaily Zestril 20 mg daily metoprolol tartrate 25 mg daily at bedtime NicoDerm 21 mg topically daily for the next week, then taper [id number] mg daily Potassium chloride 20 mEq twice a day Tramadol 50 mg 3 times a day when necessary Home Medications ferrous sulfate 325 mg (65 mg iron) tablet 325 mg PO TID tab 10/31/16 [History Confirmed 12/04/16 Last Taken Unknown] fluoxetine 40 mg capsule 80 mg PO QDAY 10/31/16 [History Confirmed 12/04/16 Last Taken Unknown] ipratropium bromide 17 mcg/actuation HFA aerosol inhaler 2 inh INHALATION TID g 10/31/16 [History Confirmed 12/04/16 Last Taken 12/03/16] lisinopril 20 mg tablet 20 mg PO QDAY 10/31/16 [History Confirmed 12/04/16 Last Taken Unknown] lisinopril 20 mg-hydrochlorothiazide 12.5 mg tablet 1 tab PO QDAY 10/31/16 [ History Confirmed 12/04/16 Last Taken Unknown] metoprolol tartrate 25 mg PO QHS 10/31/16 [History Confirmed 12/04/16 Last Taken Unknown] omeprazole 20 mg capsule,delayed release 20 mg PO BID 10/31/16 [History Confirmed 12/04/16 Last Taken 12/03/16] potassium chloride ER 10 mEq tablet,extended release(part/cryst) 20 meq PO BID tab 10/31/16 [History Confirmed 12/04/16 Last Taken Unknown] prednisone 20 mg tablet 40 mg PO QDAY 10/31/16 [History Confirmed 12/04/16 Last Taken Unknown] rosuvastatin 20 mg tablet 20 mg PO QHS tab 10/31/16 [History Confirmed Last Taken Unknown] tramadol 50 mg tablet 50 mg PO TID PRN tab 10/31/16 [History Confirmed Last Taken 12/03/16] Medical - DS: Hosp Hospital course: hospital course: Mrs. Gutierrez is a 61 year old female he was admitted on December 03 with hypoxic respiratory failure, attributed to COPDand ultimately to pneumonia. Chest x- ray initially did not show pneumonia, but subsequent films showed bilateral upper lobe pneumonia. She was treated aggressively with IV steroids, bronchodilators, and BiPAP. She improved markedly over the next several days. However she continued to be quite dyspneicwith exertion. by December 08, she was able to be off the BiPAPfor several hours at a time, and this was weaned off. She continued to require low flow oxygen to maintain saturations with exertion, but as of today, is maintaining saturations on room air. She is now feeling much better. She continues to have a cough, productive of whitish phlegm. It has become much more productive since the additionof Mucinex. She was having chest and abdominal pain from all of the coughing, and this is improved. -she has been a long-term smoker, and was smoking up until the day of admission. She has now been abstinent for about one week, and reports that she will not go back to smoking. she will continue with a NicoDerm patch for now. -She does not have a nebulizer machine at home, so this will be prescribed. -she should have outpatient pulmonary function tests to assessstaging -patient's urine culture was also positive When I came on service she was not on antibiotics so I did start her on Augmentin, to cover her lung infection and also to cover the bladder. She denies any dysuria at this time. -LFTs were minimally elevated over the last few days. This should be rechecked as an outpatient. She is not having any symptoms. -Patient also reports chronic anemia. She believes she is overdue for a follow- up colonoscopy, which got canceled when she lost her insurance previously. Today, the patient says she is feeling quite well. She has been walking in the halls and denies any dyspnea with exertion. She continues to have a cough, productive of white phlegm. she denies fever or chills, chest pain or palpitations, abdominal pain, nausea or vomiting, diarrhea or constipation, dysuria. On exam: Neck is supple without obvious JVD or lymphadenopathy. Cardiac exam shows regular rate and rhythm. Lungs are clear to auscultation. However they become coarse when she starts to cough. Abdomen is soft and nontender. Extremities show no edema. Neurologic exam: Is grossly nonfocal. assessment and plan: #1. Pulmonary -COPD. The patient has had moderate respiratory failure, treated with BiPAP. She is now off BiPAP completely and seems to be doing quite well. -she is now on oral prednisone, 40 mg twice a day. This can be tapered by 10 mg each dayuntil she gets to 0. -She should follow-up with her primary care physician preferably sometime this week. -continue albuterol nebulizers 3 times a day at home, for the next several days and then go to when necessary. She should continue with her ipratropium inhaler as well. -Continue oral Augmentin to complete treatment for pneumonia. Continue Mucinex and guaifenesin with codeine as needed. #2.. Urinary tract infection.patient was originally treated with Rocephin. Urine grew pansensitive Klebsiella. -patient is tolerating oral Augmentin. #3. Infectious disease. -Patient presented with pneumonia. she is responding to treatment, with BiPAP, steroids, bronchodilators. She was initially thought not to have pneumonia, but was treated with Rocephin for a UTI. -she has shown steady improvement on oral Augmentin. #4. Tobacco abuse. Patient was counseled that she absolutely needs to give up the smoking. We talked about continued decline in pulmonary function.continue NicoDerm. #5. Hypertension. Continue lisinopril and metoprolol. #6. Anxiety. Continue Prozac.continue trazodone. -I refilled the patient's Prozac, at her request, as she missed her appointment with her PCP last week. 80 mg, #30. #7. Hyperlipidemia. Continue statin. #8. gI. - GERD. Continue PPI. -LFTs mildly elevated. Lipitor was held today. If these continue to climb, consider gallbladder ultrasound. -please recheck LFTs later this week. #9. DVT prophylaxis:Subcutaneous heparin. #10. CODE STATUS: DNR. #11. Iron deficiency anemia. I reordered iron studies for today and they actually look pretty good. Continue multivitamin. -she should be referred back to GI, as it sounds like she is overdue for a follow-up colonoscopy. Discharge diagnosis: ilateral upper lobe pneumonia, COPD exacerbation, hypoxic respiratory failu Secondary discharge diagnosis: urinary tract infection, iron deficiency anemia - Time Spent with Patient Total time spent providing and/or coordinating discharge services: Medical - DS: Exam - Constitutional Vitals: Vital Signs Temp Pulse Pulse Resp BP Pulse Ox 12/10/16 11:20 96 12/10/16 11:17 76 16 12/10/16 08:00 92 12/10/16 07:29 97 12/10/16 07:28 66 12 97 12/10/16 07:24 72 16 12/10/16 06:58 98.2 F 64 15 136/74 95 12/10/16 03:33 98.1 F 67 18 104/58 96 12/10/16 00:00 97.8 F 65 22 119/73 97 12/09/16 23:05 75 21 12/09/16 19:59 95 12/09/16 19:58 75 21 95 12/09/16 19:56 78 21 12/09/16 19:23 98.2 F 77 24 H 127/57 95 12/09/16 15:55 97.5 F 76 16 106/67 94 12/09/16 15:28 79 16 12/09/16 12:00 98.6 F 76 16 135/81 94 Intake and Output 12/09/16 12/10/16 12/10/16 21:59 05:59 13:59 Intake Total 915 / 915 150 / 150 240 / 240 Output Total 1150 / 1150 400 / 400 250 / 250 Balance -235 / -235 -250 / -250 -10 / -10 Intake: Oral 915 / 915 150 / 150 240 / 240 Output: Urine Catheter Amount 200 / 200 Void Amount 950 / 950 400 / 400 250 / 250 Other: Meal Dinner Breakfast Percent of Meal Consumed 100% 75% Feeding Ability Independent Independent # Bowel Movements 2 Weight 184 lb Medical - DS: Data Labs on day of discharge: Labs from last 24 hours 12/09/16 17:31 Total Bilirubin 0.3 Direct Bilirubin < 0.2 AST 32 ALT 72 H Alkaline Phosphatase 95 Total Protein 6.5 Albumin 3.9 Globulin 2.6 december 09:Iron studies were done today, and show iron level of 79, TIBC of 305, 25 % saturated. CBC: White blood cell count 9000, hemoglobin 12, hematocrit 37, MCV 75, MCH 24, RDW 15, 1+ hypochromasia, 1+ and he cell cytosis, 1+ microcytosis, 1+ ovalocytes next CMP: glucose is 144, phosphorus high at 5.0 GGT increased from 143-156 ALT increased from 56 up to 72 AST dropped from 38 down to 32 December 07: - Chest x-ray: Bilateral upper lobe infiltrates are improving. No pulmonary edema. -ABG, on 1 L nasal cannula:PH 7.42, PCO2 44, PO2 67, crit 28, O2 saturation 93% -sputum Gram stain, December 07:Moderate polys with mixed oral and pharyngeal organisms. No pathogens isolated so far 12/04: urine culture from December 04: Grew Klebsiella pneumonia which is resistant to ampicillin, but pansensitive otherwise. MRSA screen is negative. December 03: EKG: Shows sinus tachycardia at a rate of 104 Medical - DS: A/P - Patient/Caregiver Discharge Instructions Activity: increase activity as tolerated Diet: Regular Diet Additional Instructions: #1. You have significant COPD. This was complicated by pneumonia. - please continue to use albuterol in your new nebulizer machine at least 3 times a day for the next 5-7 days. -Continue Mucinex to help thin out secretions. -Complete antibiotic prescription, as directed. -Please do not smoke! A nicotine patch was prescribed. Prescriptions: Albuterol Sulfate [Ventolin] 2.5 mg NEB Q2HP PRN #30 unit PRN Reason: Shortness Of Breath Amoxicillin/Potassium Clav [Augmentin] 875 mg PO BIDCC #14 tablet FLUoxetine HCL [Fluoxetine HCl] 80 mg PO QDAY #30 tab guaiFENesin [Mucinex] 600 mg PO BID #20 tab guaiFENesin/CODEINE [Robitussin AC] 5 ml PO Q4HP PRN #150 ml PRN Reason: Cough Nicotine [Nicoderm] 21 mg TOPICAL DAILY@1000 #14 patch predniSONE [Prednisone] 10 mg PO UD #40 tablet - Follow up Plan Follow up with: Kaylee Cabrera DO [Primary Care Provider] - Disposition: Home, Self-Care Prognosis: Good Rehab Potential: Good Overall status at discharge: patient is progressing back to baseline Medical - DS: Qual - VTE Deep Vein Thrombosis/Pulmonary Embolism Present on Admission: No
== END 2016-12-10 14:41 | disposition home or self-care (01) | DRG 190 ==
LOC: ED 19:31 → MEDSUR 12-04 00:23 → SUATTDRO 12-04 00:23 → MEDSUR 12-06 07:31 → ICU 12-06 10:23 → MEDSUR 12-08 21:11
PROVIDERS: ADMIT Internal Medicine; ATTEND Internal Medicine

== ENCOUNTER 2018-10-26 20:51 | Inpatient (IN) ==
[2018-10-26] MEDS ORDERED: IPRATROPIUM/ALBUTEROL 3 ML AMPUL.NEB NEB ONE (21:00)
[2018-10-26] MEDS ORDERED: methylPREDNISolone SOD SUCC 125 MG/2 ML VIAL IV ONE (21:00)
--- NOTE | 2018-10-26 21:01 | Emergency Department Note ---
SOB HPI - General Chief Complaint: Shortness of Breath/Dyspnea Stated Complaint: SOB Time Seen by Provider: 10/26/18 20:55 Source: patient, family Mode of arrival: wheelchair Limitations: no limitations - History of Present Illness I saw this patient on Saturday and she returns with continued cough and shortness of breath and feels weak. On Saturday we treated her with a DuoNeb Solu-Medrol and Zithromax and she is continued to take prednisone and Zithromax and using h er inhaler at home. - Related Data Home Medications Medication Instructions Recorded Confirmed ipratropium bromide 17 2 inh INHALATION TID g 10/31/16 10/26/18 mcg/actuation HFA aerosol inhaler ferrous sulfate 325 mg (65 mg 325 mg PO .daily tab 08/20/18 10/26/18 iron) tablet Previous Rx's Medication Instructions Recorded ipratropium-albuterol 0.5 mg-3 3 ml INHALATION Q6H PRN #3 ml 04/16/18 mg(2.5 mg base)/3 mL nebulization soln lisinopril 20 1 tab PO QDAY #90 tab 04/16/18 mg-hydrochlorothiazide 12.5 mg tablet metoprolol tartrate 25 mg tablet 25 mg PO QDAY #90 tab 04/16/18 sertraline 100 mg tablet 100 mg PO QDAY #30 tab 04/16/18 meloxicam 7.5 mg tablet 7.5 mg PO QDAY #30 tab 08/14/18 ketoconazole 2 % shampoo 1 applic TOPICAL Q2W #120 ml 08/20/18 lansoprazole 15 mg capsule,delayed 15 mg PO QDAY #30 cap 09/08/18 release rosuvastatin 5 mg tablet 5 mg PO QDAY #30 tab 09/11/18 Azithromycin [Zithromax] 250 mg PO DAILY #4 tab 10/24/18 predniSONE [Prednisone] 20 mg PO DAILY #23 tab 10/24/18 Allergies Allergy/AdvReac Type Severity Reaction Status Date / Time fish derived Allergy Unknown Vomiting, Verified 10/24/18 10:26 rash, swelling Past Medical History - Past Medical History Medical history: Reports: asthma, COPD, GERD, hyperlipidemia, hypertension 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 Absent: distention, tenderness Neurological: Present: alert Psychiatric: Present: normal affect Skin: Present: warm, dry Course Vital Signs Temperature 97.8 F 10/26/18 20:55 Pulse Rate 88 10/26/18 20:55 Respiratory Rate 29 H 10/26/18 20:55 Blood Pressure 210/103 10/26/18 20:55 Pulse Oximetry (%) 93 10/26/18 20:55 Temperature 97.8 F 10/26/18 20:55 Pulse Rate 73 10/26/18 22:38 Respiratory Rate 21 10/26/18 22:38 Blood Pressure 150/87 10/26/18 22:31 Pulse Oximetry (%) 96 10/26/18 22:38 Shortness of Breath/Dyspnea - [facility] Narrative Medical decision making narrative: This patient is going to be admitted by Dr. Christianson. She does have COPD. - Lab Data Lab results reviewed: Yes I reviewed the patient's lab results. Result diagrams: 10/26/18 21:00 10/26/18 21:00 Lab Results 10/26/18 10/26/18 10/26/18 Range/Units 21:00 21:00 21:00 WBC 12.6 H (4.5-11.0) K/mcL RBC 5.43 H (4.00-5.20) M/mcL Hgb 12.6 (12.0-15.0) g/dL Hct 39.8 (36.0-48.0) % MCV 73.3 L (80.0-100.0) fL MCH 23.2 L (26.0-34.0) pg MCHC 31.6 (31.0-36.0) g/dL RDW 15.4 H (11.5-14.5) % Plt Count 307 (140-440) K/mcL MPV 9.3 (7.4-10.4) fL Gran % 64.9 (38.0-78.0) % Lymph % (Auto) 26.8 (15.5-49.0) % Posey % (Auto) 7.6 (1.0-12.0) % Eos % (Auto) 0.1 (0.0-7.0) % Baso % (Auto) 0.6 (0.0-2.0) % Gran # 8.2 H (1.8-8.0) K/mcL Lymph # (Auto) 3.4 (1.5-4.8) K/mcL Posey # (Auto) 1.0 H (0.1-0.9) K/mcL Eos # (Auto) 0 (0.0-0.7) K/mcL Baso # (Auto) 0.1 (0.0-0.3) K/mcL VBG Lactic Acid 1.1 (0.5-2.0) mmol/L Sodium 141 (133-145) mmol/L Potassium 3.6 (3.3-5.1) mmol/L Chloride 103 (96-108) mmol/L Carbon Dioxide 25 (22-30) mmol/L Anion Gap 13.0 (8-16) BUN 16 (8-23) mg/dl Creatinine 0.8 (0.6-1.1) mg/dl GFR Calculation 79 Glucose 84 (70-105) mg/dL Calcium 9.1 (8.6-10.4) mg/dl Total Bilirubin 0.2 (0.0-1.0) mg/dL AST 19 (0-37) U/l ALT 20 (0-40) U/l Alkaline Phosphatase 96 (39-117) U/L Total Protein 7.0 (5.9-8.4) gm/dL Albumin 4.2 (3.2-5.2) gm/dL Globulin 2.8 (2.2-3.7) gm/dL Albumin/Globulin Ratio 1.5 (1.0-2.3) - Radiology Data Radiology results reviewed: Yes I reviewed the patient's radiology results. Disposition Pt seen by SKEIN WINDING OPERATOR/PA only: No Clinical Impression: Acute exacerbation of chronic obstructive airways disease Disposition: Xfer As Outpt/Obs ([facility]) Referrals: Kaylee Cabrera DO [Primary Care Provider] - Time of Disposition: 22:48
[2018-10-26 21:28] LABS: Basophils # (Auto) 0.1 K/mcL (0.0-0.3); Basophils % (Auto) 0.6 % (0.0-2.0); Eosinophils # (Auto) 0 K/mcL (0.0-0.7); Eosinophils % (Auto) 0.1 % (0.0-7.0); Granulocytes % (Auto) 64.9 % (38.0-78.0); Lymphocytes # (Auto) 3.4 K/mcL (1.5-4.8); Lymphocytes % (Auto) 26.8 % (15.5-49.0); Mean Cell Volume 73.3 fL (80.0-100.0); Mean Corpuscular HGB Conc 31.6 g/dL (31.0-36.0); Monocytes % (Auto) 7.6 % (1.0-12.0); Platelet Count 307 K/mcL (140-440); RBC 5.43 M/mcL (4.00-5.20); Red Cell Distribution Width 15.4 % (11.5-14.5)
[2018-10-26 21:49] LABS: ALT/SGPT 20 U/l (0-40); Albumin 4.2 gm/dL (3.2-5.2); Albumin/Globulin Ratio 1.5 (1.0-2.3); Alkaline Phosphatase 96 U/L (39-117); Blood Urea Nitrogen 16 mg/dl (8-23)
--- NOTE | 2018-10-26 23:05 | Internal Med History&Physical ---
Medical - H&P: [facility] Patient information: Note initiated : 10/26/18 at 11:04 pm Service Date, if different from initiated Date: [] Patient: Alisson Gutierrez a 62 y/o F admitted on for Shortness of breath. Chief Complaint: [] History of present illness: Ms. Gutierrez is a 62 year old F Who was seen in the ED Saturday for acute exacerbation of COPD. Was given steroids and azithromycin. She felt a little better the next day but then continued to feel worse. Today she is very weak she has a productive cough of yellow sputum and shortness of breath. She says her granddaughter was sick for a week with she thought the flu. She has headache. Denies fever. Does have some rib and chest wall pain from coughing. Denies any nausea vomiting or diarrhea. She is failed outpatient therapy for COPD. Although she is remaining in any adequate oxygenation she is quite labored and again worsened even with trial of outpatient therapy. Chest x-ray unremarkable. Review of Systems: Pertinent positives as above. Denies /fever/chills/nausea/vomiting/chest or abdominal pain/diarrhea. Remaining 10 point review of systems reviewed negative Medical - H&P: [facility] Medical history: Medical History (Last Reviewed 08/20/18 @ 12:12 by Jose Daniel Denson PA-C) Elevated liver enzymes (Acute) Adult health maintenance (Chronic) COPD (chronic obstructive pulmonary disease) (Chronic) Tobacco use (Chronic) Anemia (Chronic ~2014) Anxiety (Chronic ~1994) Arthritis (Chronic ~1989) Asthma (Chronic ~1973) Depression (Chronic ~1979) Hypertension, essential (Chronic ~1994) Hyperlipidemia (Chronic) Insomnia (Chronic ~2013) Joint pain (Chronic ~1979) Bowel disease (Chronic) Degenerative lumbar disc (Chronic ~1979) Left knee pain (Chronic) Acid reflux (Resolved ~2009) Acute exacerbation of chronic obstructive airways disease (Resolved) Past Surgical History (Last Reviewed 08/20/18 @ 12:12 by Jose Daniel Denson PA-C) H/O colonoscopy (Chronic ~2015) H/O total hysterectomy (Chronic ~1989) History of lumpectomy of left breast (Chronic ~1995) History of surgery (Chronic ~1971) Hx of appendectomy (Chronic ~1981) Family History (Last Reviewed 08/20/18 @ 12:12 by Jose Daniel Denson PA-C) Brother Arthritis Diabetes Grandfather Arthritis Grandmother Cancer Mother Lung cancer Father Heart attack Daughter Heart attack Seizures Sister Stroke Social History (Last Updated 08/20/18 @ 12:15 by Jose Daniel Denson PA-C) Patient has not smoked since Saturday when this illness started Denies alcohol Lives at home with family Medical - H&P: Meds Home Medications Medication Instructions Recorded Confirmed Type ipratropium bromide 17 2 inh INHALATION TID g 10/31/16 10/26/18 History mcg/actuation HFA aerosol inhaler ipratropium-albuterol 0.5 mg-3 3 ml INHALATION Q6H PRN #3 ml 04/16/18 10/26/18 Rx mg(2.5 mg base)/3 mL nebulization soln lisinopril 20 1 tab PO QDAY #90 tab 04/16/18 10/26/18 Rx mg-hydrochlorothiazide 12.5 mg tablet metoprolol tartrate 25 mg tablet 25 mg PO QDAY #90 tab 04/16/18 10/26/18 Rx sertraline 100 mg tablet 100 mg PO QDAY #30 tab 04/16/18 10/26/18 Rx meloxicam 7.5 mg tablet 7.5 mg PO QDAY #30 tab 08/14/18 10/26/18 Rx ferrous sulfate 325 mg (65 mg 325 mg PO .daily tab 08/20/18 10/26/18 History iron) tablet ketoconazole 2 % shampoo 1 applic TOPICAL Q2W #120 ml 08/20/18 10/26/18 Rx lansoprazole 15 mg capsule,delayed 15 mg PO QDAY #30 cap 09/08/18 10/26/18 Rx release rosuvastatin 5 mg tablet 5 mg PO QDAY #30 tab 09/11/18 10/26/18 Rx Azithromycin [Zithromax] 250 mg PO DAILY #4 tab 10/24/18 10/26/18 Rx predniSONE [Prednisone] 20 mg PO DAILY #23 tab 10/24/18 10/26/18 Rx Allergies Allergy/AdvReac Type Severity Reaction Status Date / Time fish derived Allergy Unknown Vomiting, Verified 10/24/18 10:26 rash, swelling Medical - H&P: Exam - Constitutional Vitals: Temp Pulse Resp BP Pulse Ox 97.8 F 80 22 156/85 97 10/26/18 20:55 10/26/18 22:47 10/26/18 22:47 10/26/18 22:46 10/26/18 22:47 Exam: General: Alert, Awake, No acute Distress Eyes/N/T: EOMI, PEERL, DMM Head/Neck: neck supple, normocephalic atraumatic CV: RRR, No murmurs, normal s1/s2 Pulm: Mildly diminished bilaterally, mild expiratory wheezing abd: soft, nontender, +BS x4 Ext: no clubbing/cyanosis/edema Neuro: Alert, no focal deficits, moves all extremities, CN 2-12 grossly intact, symmetrical strength b/l upper/lower, sensations intact b/l upper/lower Skin: warm/dry Medical - H&P: Reslt - Labs CBC & Chem 7: 10/26/18 21:00 10/26/18 21:00 Labs: Short CBC 10/26/18 Range/Units 21:00 WBC 12.6 H (4.5-11.0) K/mcL Hgb 12.6 (12.0-15.0) g/dL Hct 39.8 (36.0-48.0) % Plt Count 307 (140-440) K/mcL BMP 10/26/18 21:00 Sodium 141 Potassium 3.6 Chloride 103 Carbon Dioxide 25 BUN 16 Creatinine 0.8 Glucose 84 Calcium 9.1 Liver Function 10/26/18 Range/Units 21:00 Total Bilirubin 0.2 (0.0-1.0) mg/dL AST 19 (0-37) U/l ALT 20 (0-40) U/l Alkaline Phosphatase 96 (39-117) U/L Albumin 4.2 (3.2-5.2) gm/dL - Impressions Chest x-ray unremarkable for acute pathology Medical - H&P: A/P - Narrative A/P Narrative: A: *AECOPD: *Tobacco abuse: *HTN: *Depression: *GERD: * * P: -Steroids (Wean) -Start Advair, nebs -IS/Acapella, RT -Respiratory viral panel pending -Empiric antibiotics, PCT pending -may need home O2 on d/c -f/u with pulm for PFT's outpt -ppx: Lovenox
[2018-10-26] MEDS ORDERED: cloNIDine HCL 0.1 MG TABLET PO PRN (23:45)
[2018-10-26] MEDS ORDERED: ONDANSETRON 4 MG/2 ML VIAL IV PRN (23:45)
[2018-10-26] MEDS ORDERED: PROMETHAZINE 25 MG/ML VIAL IV PRN (23:45)
[2018-10-26] MEDS ORDERED: LEVOFLOXACIN 750 MG/150 ML BAG IV SCH (23:45)
[2018-10-27] MEDS ORDERED: LEVOFLOXACIN 750 MG/150 ML BAG IV ONE (00:12)
[2018-10-27] MEDS: IPRATROPIUM/ALBUTEROL 3 ML AMPUL.NEB NEB SCH ×4 (00:15→18:47)
[2018-10-27 00:51] LABS: Hypochromasia 1+ (NONE SEEN); Lymphocytes % 34 % (15-49); Monocytes % (Manual) 8 % (1-12); Platelet Estimate NORMAL (NORMAL); RBC Morphology ABNORM (NORMAL); Segmented Neutrophils % 57 % (38-78)
[2018-10-27] MEDS ORDERED: IPRATROPIUM/ALBUTEROL 3 ML AMPUL.NEB NEB ONE (02:01)
[2018-10-27] MEDS: 0.9 % SODIUM CHLORIDE 10 ML SYRINGE IV SCH ×3 (05:25→20:53)
[2018-10-27 06:20] LABS: Basophils # (Auto) 0 K/mcL (0.0-0.3); Basophils % (Auto) 0.2 % (0.0-2.0); Eosinophils # (Auto) 0 K/mcL (0.0-0.7); Eosinophils % (Auto) 0 % (0.0-7.0); Granulocytes % (Auto) 87.1 % (38.0-78.0); Lymphocytes # (Auto) 0.9 K/mcL (1.5-4.8); Lymphocytes % (Auto) 11.3 % (15.5-49.0); Mean Cell Volume 73.5 fL (80.0-100.0); Mean Corpuscular HGB Conc 31.8 g/dL (31.0-36.0); Monocytes # (Auto) 0.1 K/mcL (0.1-0.9); Monocytes % (Auto) 1.4 % (1.0-12.0); Platelet Count 268 K/mcL (140-440); RBC 5.05 M/mcL (4.00-5.20); Red Cell Distribution Width 15.7 % (11.5-14.5)
[2018-10-27 06:25] LABS: ALT/SGPT 19 U/l (0-40); Albumin 3.9 gm/dL (3.2-5.2); Albumin/Globulin Ratio 1.6 (1.0-2.3); Alkaline Phosphatase 91 U/L (39-117); Bilirubin,Direct < 0.2 mg/dL (0.0-0.3); Blood Urea Nitrogen 14 mg/dl (8-23); Gamma Glutamyl Transpeptidase 46 U/L (5-36); Uric Acid 4.9 mg/dL (2.5-8.0)
--- NOTE | 2018-10-27 06:50 | Internal Med Progress Note ---
Medical - PN: Subj Patient information: Note initiated : 10/27/18 at 6:44 am Service Date, if different from initiated Date: [] Patient: Alisson Gutierrez a 62 y/o F admitted on 10/26/18 for Shortness of breath. Chief Complaint: [] Interval history: Ms. Gutierrez is a 62 year old F Who was seen in the ED Saturday for acute exacerbation of COPD. Was given steroids and azithromycin. She felt a little better the next day but then continued to feel worse. Today she is very weak she has a productive cough of yellow sputum and shortness of breath. She says her granddaughter was sick for a week with she thought the flu. She has headache. Denies fever. Does have some rib and chest wall pain from coughing. Denies any nausea vomiting or diarrhea. She is failed outpatient therapy for COPD. Although she is remaining in any adequate oxygenation she is quite labored and again worsened even with trial of outpatient therapy. Chest x-ray unremarkable. 10/27 Emotional this morning but she does not know why. Says she has been away for couple days. She does have anxiety, which is seems to be and has been wondering for a while about medications for anxiety outpatient. She has a headache. But denies any coughing or shortness of breath this morning. Review of Systems: denies fever/chills/nausea/vomiting/chest or abdominal pain/diarrhea. Otherwise see above. - Constitutional Vitals: Vital Signs Temp Pulse Resp BP Pulse Ox 97.6 F 83 18 150/86 93 10/27/18 06:34 10/27/18 06:34 10/27/18 06:34 10/27/18 06:34 10/27/18 06:34 Period Temp Pulse Resp BP Sys/Tang Pulse Ox Last 24 Hr 97.5 F-97.8 F 72-99 16-29 140-210/68-141 92-98 Intake and Output 10/26/18 10/27/18 10/27/18 21:59 05:59 13:59 Intake Total 252 Balance 252 Weight 85.729 kg 83.915 kg Intake & Output: Intake & Output 10/26/18 10/27/18 10/27/18 21:59 05:59 13:59 Intake Total 252 Balance 252 Weight 85.729 kg 83.915 kg Intake: Oral 252 Other: # Voids 1 Exam: General: Alert, Awake, No acute Distress Eyes/N/T: EOMI, Head/Neck: neck supple, CV: RRR, No murmurs, Pulm: Mildly diminished bilaterally, no wheezing today abd: soft, nontender, +BS x4 Ext: no clubbing/cyanosis/edema Neuro: Alert, no focal deficits, moves all extremities, Skin: warm/dry Medical - PN: Obj Da - Labs CBC & Chem 7: 10/27/18 04:20 10/27/18 04:20 Labs: Abnormal Lab Results 10/27/18 10/27/18 10/26/18 04:20 04:20 21:00 WBC RBC Hgb 11.8 L MCV 73.5 L MCH 23.3 L RDW 15.7 H Gran % 87.1 H Lymph % (Auto) 11.3 L Gran # Lymph # (Auto) 0.9 L Garza # (Auto) RBC Morphology Abnorm A Polychromasia 1+ A Hypochromasia 1+ A Microcytosis 2+ A Glucose 158 H Calcium 8.5 L GGT 46 H 10/26/18 21:00 WBC 12.6 H RBC 5.43 H Hgb MCV 73.3 L MCH 23.2 L RDW 15.4 H Gran % Lymph % (Auto) Gran # 8.2 H Lymph # (Auto) Garza # (Auto) 1.0 H RBC Morphology Polychromasia Hypochromasia Microcytosis Glucose Calcium GGT Meds: Medications Albuterol/Ipratropium (Duoneb) 3 ml NEB Q6HRT [facility] Last Admin: 10/27/18 00:15 Dose: Not Given Documented by: Atorvastatin Calcium (Lipitor) 10 mg PO DAILY [facility] Clonidine HCl (Catapres) 0.1 mg PO QIDP PRN PRN Reason: SBP>150 Enoxaparin Sodium (Lovenox) 40 mg SQ DAILY [facility] Hydrochlorothiazide (Oretic) 12.5 mg PO DAILY [facility] Levofloxacin (Levaquin) 750 mg in 150 mls @ 100 mls/hr IV Q24H [facility]; Protocol Last Admin: 10/27/18 00:14 Dose: 100 mls/hr Documented by: Lisinopril (Zestril) 20 mg PO DAILY [facility] Meloxicam (Mobic) 7.5 mg PO QDAY [facility] Metoprolol Tartrate (Lopressor) 25 mg PO QDAY [facility] Ondansetron HCl (Zofran) 4 mg IV Q6HP PRN PRN Reason: Nausea And Vomiting Promethazine HCl (Phenergan) 12.5 mg IV Q6HP PRN PRN Reason: Nausea And Vomiting Fluticasone/Salmeterol (Advair 250-50 Diskus) 1 puff INH BID [facility] Sertraline HCl (Zoloft) 100 mg PO QDAY [facility] Sodium Chloride (Saline Flush) 10 ml IV Q8 [facility] Last Admin: 10/27/18 05:25 Dose: 10 ml Documented by: Medical - PN: A/P - Time Spent With Patient Total time spent is greater than 50% in coordination of care (as documented) at patient's floor/unit and/or counseling patient: - Narrative A/P Narrative: A: *AECOPD: Improving -on room air *Tobacco abuse: *HTN: *Depression/anxiety: *GERD: * P: -Steroids (Wean) -Start Advair, nebs -IS/Acapella, RT -Respiratory viral panel pending -Empiric antibiotics, -f/u with pulm for PFT's outpt -Smoking cessation counseling -prn Ativan -ppx: Lovenox Medical - PN: Qual - Stroke Symptom Onset Unknown: No - VTE Deep Vein Thrombosis/Pulmonary Embolism Present on Admission: No
[2018-10-27] MEDS ORDERED: LORazepam 2 MG/ML VIAL IV ONE (07:28)
[2018-10-27] MEDS ORDERED: LORazepam 2 MG/ML VIAL IV PRN (07:28)
[2018-10-27] MEDS: ATORVASTATIN 20 MG TABLET PO SCH (08:04)
[2018-10-27] MEDS: ENOXAPARIN 40 MG/0.4 ML SYRINGE SQ SCH (08:04)
[2018-10-27] MEDS: INSULIN LISPRO 1 UNIT/0.01 ML UNIT SQ SCH ×4 (08:04→20:59)
[2018-10-27] MEDS: methylPREDNISolone SOD SUCC 40 MG/ML VIAL IV SCH ×2 (08:04→20:52)
[2018-10-27] MEDS: MELOXICAM 7.5 MG TABLET PO SCH (08:05)
[2018-10-27] MEDS: METOPROLOL TARTRATE 25 MG TABLET PO SCH (08:05)
[2018-10-27] MEDS: LISINOPRIL 20 MG TABLET PO SCH (08:06)
[2018-10-27] MEDS: HYDROCHLOROTHIAZIDE 12.5 MG CAPSULE PO SCH (08:06)
[2018-10-27] MEDS: FLUTICASONE/SALMETEROL 250/50 INHALER #14 INH SCH ×2 (08:21→20:53)
--- NOTE | 2018-10-27 08:35 | XRay Report ---
CLINICAL INFORMATION: sob COMPARISON: 10/24/2018 FINDINGS: The heart size, mediastinum and pulmonary vessels are unremarkable. The lungs are clear. There are no effusions. The bones and soft tissues are within normal limits. IMPRESSION: Normal chest. Interpreted and Authenticated by: Sergio Valdovinos 10/27/18
[2018-10-27] MEDS ORDERED: ROSUVASTATIN CALCIUM 5 MG PO SCH (09:00)
[2018-10-27] MEDS ORDERED: FLUTICASONE/SALMETEROL 250/50 INHALER #14 INH SCH (09:00)
[2018-10-27] MEDS ORDERED: SERTRALINE 100 MG TABLET PO SCH (09:00)
[2018-10-27] MEDS ORDERED: LISINOPRIL/HCTZ 20/12.5MG TABLET PO SCH (09:00)
[2018-10-27] MEDS: FLUoxetine HCL 20 MG CAPSULE PO SCH (10:57)
[2018-10-27] MEDS: LEVOFLOXACIN 500 MG/100 ML BAG IV SCH (16:09)
[2018-10-28] MEDS: IPRATROPIUM/ALBUTEROL 3 ML AMPUL.NEB NEB SCH ×2 (00:34→07:34)
[2018-10-28] MEDS: 0.9 % SODIUM CHLORIDE 10 ML SYRINGE IV SCH (04:25)
[2018-10-28] MEDS: ATORVASTATIN 20 MG TABLET PO SCH (08:46)
[2018-10-28] MEDS: HYDROCHLOROTHIAZIDE 12.5 MG CAPSULE PO SCH (08:48)
[2018-10-28] MEDS: METOPROLOL TARTRATE 25 MG TABLET PO SCH (08:49)
[2018-10-28] MEDS: LISINOPRIL 20 MG TABLET PO SCH (08:49)
[2018-10-28] MEDS: FLUoxetine HCL 20 MG CAPSULE PO SCH (08:50)
[2018-10-28] MEDS: MELOXICAM 7.5 MG TABLET PO SCH (08:50)
[2018-10-28] MEDS: ENOXAPARIN 40 MG/0.4 ML SYRINGE SQ SCH (08:51)
[2018-10-28] MEDS: methylPREDNISolone SOD SUCC 40 MG/ML VIAL IV SCH (08:52)
[2018-10-28] MEDS: INSULIN LISPRO 1 UNIT/0.01 ML UNIT SQ SCH ×2 (08:53→11:30)
[2018-10-28] MEDS: LEVOFLOXACIN 500 MG/100 ML BAG IV SCH (09:02)
[2018-10-28] MEDS: FLUTICASONE/SALMETEROL 250/50 INHALER #14 INH SCH (09:03)
--- NOTE | 2018-10-28 09:31 | Discharge Summary ---
Medical - DS: Prov Patient information: Note initiated : 10/28/18 at 9:28 am Service Date, if different from initiated Date: [] Patient: Alisson Gutierrez 62 y/o F admitted on 10/26/18 for Shortness of breath. Chief Complaint: [] Date of admission: 10/26/18 23:37 Discharge date: 10/28/18 Primary care physician: Kaylee Cabrera DO Consults: 10/26/18 Consult to Physician [CONS] Stat Comment: Consulting Provider: Rosalino Christianson Reason For Exam: Physician to Consult Medical - DS: Meds - Discharge Medications Prescriptions: Levofloxacin [Levaquin] 750 mg PO DAILY #3 tab predniSONE [Prednisone] 40 mg PO [facility] #10 tab Active and Home Medications: Home Medications ipratropium bromide 17 mcg/actuation HFA aerosol inhaler 2 inh INHALATION TID g 10/31/16 [History Confirmed 10/26/18 Last Taken 12/03/16] ipratropium-albuterol 0.5 mg-3 mg(2.5 mg base)/3 mL nebulization soln 3 ml INHALATION Q6H PRN #3 ml 04/16/18 [Rx Confirmed 10/26/18 Last Taken Unknown] lisinopril 20 mg-hydrochlorothiazide 12.5 mg tablet 1 tab PO QDAY #90 tab 04/16/18 [Rx Confirmed 10/26/18 Last Taken Unknown] metoprolol tartrate 25 mg tablet 25 mg PO QDAY #90 tab 04/16/18 [Rx Confirmed 10/26/18 Last Taken Unknown] meloxicam 7.5 mg tablet 7.5 mg PO QDAY #30 tab 08/14/18 [Rx Confirmed 10/26/18 Last Taken Unknown] ferrous sulfate 325 mg (65 mg iron) tablet 325 mg PO .daily tab 08/20/18 [History Confirmed 10/26/18 Last Taken Unknown] ketoconazole 2 % shampoo 1 applic TOPICAL Q2W #120 ml 08/20/18 [Rx Confirmed 10/26/18 Last Taken Unknown] lansoprazole 15 mg capsule,delayed release 15 mg PO QDAY #30 cap 09/08/18 [Rx Confirmed 10/26/18 Last Taken Unknown] rosuvastatin 5 mg tablet 5 mg PO QDAY #30 tab 09/11/18 [Rx Confirmed 10/26/18 Last Taken Unknown] FLUoxetine HCL [Prozac] 80 mg PO DAILY 10/27/18 [History Confirmed 10/27/18 Last Taken Unknown] Levofloxacin [Levaquin] 750 mg PO DAILY #3 tab 10/28/18 [Rx Last Taken Unknown] predniSONE [Prednisone] 40 mg PO [facility] #10 tab 10/28/18 [Rx Last Taken Unknown] Medical - DS: Hosp Hospital course: Discharge diagnosis * Acute on chronic COPD exacerbation-clinically improved with bronchodilators/steroids. Continue additional 5 days oral prednisone. Continue additional 3 days Levaquin. * Tobacco dependence-counseled for tobacco cessation * History of hypertension-remain stable on home meds * History of depression and anxiety continue Zoloft * Hyperlipidemia managed on statin Brief hospital course Ms. Gutierrez is a 62 year old F Who was seen in the ED Saturday for acute exacerbation of COPD. Was given steroids and azithromycin. She felt a little better the next day but then continued to feel worse. Today she is very weak she has a productive cough of yellow sputum and shortness of breath. She says her granddaughter was sick for a week with she thought the flu. She has headache. Denies fever. Does have some rib and chest wall pain from coughing. Denies any nausea vomiting or diarrhea. She is failed outpatient therapy for COPD. Although she is remaining in any adequate oxygenation she is quite labored and again worsened even with trial of outpatient therapy. Chest x-ray unremarkable. 10/27 Emotional this morning but she does not know why. Says she has been away for couple days. She does have anxiety, which is seems to be and has been wondering for a while about medications for anxiety outpatient. She has a headache. But denies any coughing or shortness of breath this morning. 10/28-patient doing well. No overnight events. Now on room air. Requesting discharge. No fever chills nausea vomiting. No concerns especially nursing staff. Ambulating and tolerating diet. Detailed discharge instructions as below Discharge diagnosis: . - Time Spent with Patient Total time spent providing and/or coordinating discharge services: Greater than 30 minutes Medical - DS: Exam - Constitutional Vitals: Vital Signs Temp Pulse Pulse Resp BP BP Pulse Ox 10/28/18 07:57 97.9 F 82 16 124/69 96 10/28/18 07:40 82 18 92 10/28/18 07:39 82 18 10/28/18 07:35 92 10/28/18 07:27 80 96 10/28/18 04:00 97.6 F 85 14 133/72 93 10/27/18 23:55 97.8 F 92 H 18 142/74 91 10/27/18 19:17 97.3 F 90 16 127/65 92 10/27/18 19:08 85 16 92 10/27/18 18:50 93 H 18 10/27/18 15:19 97.8 F 85 16 131/65 92 10/27/18 13:22 84 18 10/27/18 12:00 97.6 F 82 128/63 93 Intake and Output 10/27/18 10/28/18 10/28/18 21:59 05:59 13:59 Intake Total 400 240 Output Total 800 300 Balance -400 -60 Intake: IV 100 Oral 300 240 Output: Void Amount 800 300 Other: # Voids 1 Weight 185 lb Medical - DS: A/P - Patient/Caregiver Discharge Instructions Activity: increase activity as tolerated, resume usual activities as tolerated Diet: Regular Diet Additional Instructions: Follow-up PCP in 5 days Continue prednisone for additional 5 days I recommend primary care physician to check CBC BMP as a posthospital follow-up and Chest x-ray in 1 week. Antibiotics for additional 3 days Continue fall precautions All meals on chair sitting upright at 90 degrees to prevent aspiration Return to ER if worsening fever chills shortness of breath, diarrhea, bleeding Review risk and side effect profile of medications including antibiotics. Side effect may include mild to severe reaction including rash, diarrhea, cdiff and even which can be prevented by close follow-up with PCP and monitoring for side effects Refrain from smoking and alcohol Continue diet and activity as advised Discussed importance of medication adherence Please review medication list with patient prior to discharge Please schedule follow-up with PCP/Providers prior to discharge and provide printouts Prescriptions: Levofloxacin [Levaquin] 750 mg PO DAILY #3 tab predniSONE [Prednisone] 40 mg PO [facility] #10 tab - Follow up Plan Follow up with: Kaylee Cabrera DO [Primary Care Provider] - Disposition: Home, Self-Care Prognosis: Fair Rehab Potential: Fair I certify that the patient requires SNF services: No Overall status at discharge: patient is back to baseline Medical - DS: Qual - VTE Deep Vein Thrombosis/Pulmonary Embolism Present on Admission: No
[2018-10-29] MEDS ORDERED: predniSONE 20 MG TABLET PO SCH (08:00)
== END 2018-10-28 12:35 | disposition home or self-care (01) | DRG 192 ==
LOC: ED 20:51 → MEDSUR 23:36
PROVIDERS: ADMIT Internal Medicine; ATTEND Internal Medicine

== ENCOUNTER 2019-09-07 17:51 | Observation (INO) ==
--- NOTE | 2019-09-07 18:04 | Emergency Department Note ---
SOB HPI - General Chief Complaint: Shortness of Breath/Dyspnea Stated Complaint: SOB Time Seen by Provider: 09/07/19 17:57 Source: patient, family Mode of arrival: wheelchair Limitations: other - History of Present Illness Patient is here with her reporting shortness of breath over a week but has been worsening. She has had 5 or 6 home nebulizer treatments that have not been working. is uncertain what exactly the ingredient is. She is unable to talk in full sentences and has a wet cough. Has been worsening as far as her shortness of breath in the last 12 hours. At home she has felt feverish. No shivering chills but has had some sweats. She is feeling weak. In triage her temperature was 98.6 pulse mildly elevated at 95, respiratory rate elevated at 26, blood pressure 163/95. She also has had a little bit of abdominal discomforts. She also has had some lower substernal chest discomforts with wheeziness and phlegm production. Denies nausea or vomiting or diarrhea. - Related Data Home Medications Medication Instructions Recorded Confirmed omeprazole 20 mg capsule,delayed 20 mg PO QDAY 04/15/19 04/15/19 release Previous Rx's Medication Instructions Recorded ipratropium 0.5 mg-albuterol 3 mg 3 ml INHALATION Q6H PRN #3 ml 04/16/18 (2.5 mg base)/3 mL nebulization soln fluticasone 250 mcg-salmeterol 50 1 inh INHALATION BID #60 each 11/03/18 mcg/dose blistr powdr for inhalation fluoxetine 40 mg capsule 80 mg PO DAILY #60 cap 11/28/18 Allergies Allergy/AdvReac Type Severity Reaction Status Date / Time fish derived AdvReac Intermediate Vomiting, Verified 04/15/19 13:13 rash, swelling Past Medical History - Past Medical History [facility] Narrative: Medical History (Last Updated 09/07/19 @ 18:26 by Sekou Phelps DO) Tobacco use (Chronic) COPD (chronic obstructive pulmonary disease) (Chronic) Obesity (BMI 30.0-34.9) (Chronic) Hyperlipidemia (Chronic) Hypertension, essential (Chronic ~1994) Chronic knee pain (Chronic) Anxiety (Chronic ~1994) Arthritis (Chronic ~1989) Asthma (Chronic ~1973) Depression (Chronic ~1979) Insomnia (Chronic ~2013) Joint pain (Chronic ~1979) Bowel disease (Chronic) Degenerative lumbar disc (Chronic ~1979) History of pneumonia (Resolved) Acid reflux (Resolved ~2009) Acute exacerbation of chronic obstructive airways disease (Resolved) Acute exacerbation of chronic obstructive airways disease (Resolved) Anemia (Resolved ~2014) Elevated liver enzymes (Resolved) Left knee pain (Resolved) Acute seborrheic dermatitis (Inactive) Past Surgical History (Last Reviewed 04/15/19 @ 13:36 by CONI Stewart) H/O colonoscopy (Chronic ~2015) H/O total hysterectomy (Chronic ~1989) History of lumpectomy of left breast (Chronic ~1995) History of surgery (Chronic ~1971) Hx of appendectomy (Chronic ~1981) Family History (Last Reviewed 04/15/19 @ 13:36 by Sung Real PA-C) Brother Arthritis Diabetes Grandfather Arthritis Grandmother Cancer Mother Lung cancer Father Heart attack Daughter Heart attack Seizures Sister Stroke Other Fall Medical history: Reports: asthma, COPD, GERD, hyperlipidemia, hypertension 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 Absent: lymphadenopathy, thyromegaly Chest: Present: symmetric chest wall rise Respiratory: Present: respiratory distress (tachypnea with short breaths; ), wheezes (polyphonic in all lung adams, most of expiration, moderate loud, but decreased breath excursion. ). Absent: rales/crackles Cardiovascular: Present: regular rate, normal rhythm. Absent: systolic murmur, diastolic murmur Abdominal: Present: soft, tenderness (some mild to moderate and subjective; epigastric.). Absent: distention, guarding, rebound, rigidity, organomegaly, mass Extremities: Absent: pedal edema, pretibial edema, calf tenderness Back: Absent: CVA tenderness (R), CVA tenderness (L), spinous process tenderness Neurological: Present: alert, oriented X3 Psychiatric: Present: flat affect, serious, poor eye contact. Absent: depressed, agitated, anxious Skin: Present: warm, dry Course Vital Signs Temperature 98.6 F 09/07/19 17:53 Pulse Rate 95 H 09/07/19 17:53 Respiratory Rate 26 H 09/07/19 17:53 Blood Pressure 163/95 09/07/19 17:53 Pulse Oximetry (%) 95 09/07/19 17:53 Temperature 98.6 F 09/07/19 17:53 Pulse Rate 93 H 09/07/19 22:47 Respiratory Rate 15 09/07/19 22:47 Blood Pressure 116/80 09/07/19 22:47 Pulse Oximetry (%) 97 09/07/19 22:47 Shortness of Breath/Dyspnea - [facility] Narrative Medical decision making narrative: 2:10 PM - moderate or severe COPD exacerbation with tachypnea and polyphonic expiratory wheezes in multiple lung adams after multiple home nebulizers with some concomitant substernal chest pain, etc. Imaging, EKG, multiple labs ordered. ABG on room air with a pH of 7.46 and a PCO2 of 41 with a PO2 of base excess 4.9 which is a little bit high as well as a bicarb of 29.2 which is barely high. This suggests chronic probably respiratory acidosis that is compensated for presently with some tachypnea causing PCO2 to go down and pH to go up. Regardless, is relatively mild or does not seem to be severe based on this exact study. 7:15 PM - chest x-ray negative. Patient had an initial DuoNeb. Because of persistent wheezing a heart neb was initiated of 5 mg over approximately 1 hour. This seemed to improve quite a bit. She remained without a major tachycardia with a respiratory rate coming do wn to 26 and under and her heart rate around 85-90. Saturations remained in the 95 range to 97 range. 9:24 PM - patient revealed some mild trace wheezing and admitted that it felt like her wheezing was coming back. Her respiratory rate is come down to 22. 9:45 PM. Patient's wheezing is increased to a mild to moderate range. She is still respiratory rate around 22 and good oximetry but her wheezing is definitely worsening. On making her talk she has approximately 6 word phrases/dyspnea which qualifies her for observation and I think this is reasonable given that she has had so many nebulizer treatments and remains as wheezy as she is in spite of heart neb and dose of Solu-Medrol. This was discussed with gatehouse attendant. I will await conversation to discuss with hospitalist. 10:15 PM approximately - spoke with Dr. Jasmine who kindly accepts this patient for admit to observation after discussing the clinical scenario. An additional nebulizer treatment had already been initiated with albuterol 2.5 mg. - Lab Data Result diagrams: 09/07/19 18:15 09/07/19 18:15 Lab Results 09/07/19 09/07/19 09/07/19 Range/Units 18:15 18:15 18:15 WBC 5.9 (4.50-11.00) K/mcL RBC 5.41 H (3.59-5.38) M/mcL Hgb 12.3 (11.2-15.7) g/dL Hct 40.2 (34.1-44.9) % MCV 74.3 L (80.0-100.0) fL MCH 22.7 L (26.0-34.0) pg MCHC 30.6 L (31.0-36.0) g/dL RDW 14.6 H (11.5-14.5) % Plt Count 294 (140-440) K/mcL MPV 10.3 (7.4-10.4) fL Gran % 47.6 (38.0-78.0) % Lymph % (Auto) 40.7 (15.5-49.0) % Bath % (Auto) 7.3 (1.0-12.0) % Eos % (Auto) 3.7 (0.0-7.0) % Baso % (Auto) 0.7 (0.0-2.0) % Gran # 2.80 (1.80-8.00) K/mcL Lymph # (Auto) 2.40 (1.50-4.80) K/mcL Bath # (Auto) 0.43 (0.10-0.90) K/mcL Eos # (Auto) 0.22 (0.00-0.70) K/mcL Baso # (Auto) 0.04 (0.00-0.30) K/mcL VBG Lactic Acid (0.5-2.0) mmol/L Sodium 141 (133-145) mmol/L Potassium 3.6 (3.3-5.1) mmol/L Chloride 105 (96-108) mmol/L Carbon Dioxide 23 (22-30) mmol/L Anion Gap 13.0 (8-16) BUN 10 (8-23) mg/dl Creatinine 0.8 (0.6-1.1) mg/dl GFR Calculation 78 Glucose 135 H (70-105) mg/dL Calcium 9.3 (8.6-10.4) mg/dl Total Bilirubin 0.2 (0.0-1.0) mg/dL AST 32 (0-37) U/l ALT 35 (0-40) U/l Alkaline Phosphatase 105 (39-117) U/L Troponin T < 0.01 (0-0.03) ng/ml NT-Pro-B Natriuret Pep < 50.0 (0-125) pg/ml Total Protein 6.8 (5.9-8.4) gm/dL Albumin 4.1 (3.2-5.2) gm/dL Globulin 2.7 (2.2-3.7) gm/dL Albumin/Globulin Ratio 1.5 (1.0-2.3) 09/07/19 Range/Units 18:38 WBC (4.50-11.00) K/mcL RBC (3.59-5.38) M/mcL Hgb (11.2-15.7) g/dL Hct (34.1-44.9) % MCV (80.0-100.0) fL MCH (26.0-34.0) pg MCHC (31.0-36.0) g/dL RDW (11.5-14.5) % Plt Count (140-440) K/mcL MPV (7.4-10.4) fL Gran % (38.0-78.0) % Lymph % (Auto) (15.5-49.0) % Bath % (Auto) (1.0-12.0) % Eos % (Auto) (0.0-7.0) % Baso % (Auto) (0.0-2.0) % Gran # (1.80-8.00) K/mcL Lymph # (Auto) (1.50-4.80) K/mcL Bath # (Auto) (0.10-0.90) K/mcL Eos # (Auto) (0.00-0.70) K/mcL Baso # (Auto) (0.00-0.30) K/mcL VBG Lactic Acid 1.5 (0.5-2.0) mmol/L Sodium (133-145) mmol/L Potassium (3.3-5.1) mmol/L Chloride (96-108) mmol/L Carbon Dioxide (22-30) mmol/L Anion Gap (8-16) BUN (8-23) mg/dl Creatinine (0.6-1.1) mg/dl GFR Calculation Glucose (70-105) mg/dL Calcium (8.6-10.4) mg/dl Total Bilirubin (0.0-1.0) mg/dL AST (0-37) U/l ALT (0-40) U/l Alkaline Phosphatase (39-117) U/L Troponin T (0-0.03) ng/ml NT-Pro-B Natriuret Pep (0-125) pg/ml Total Protein (5.9-8.4) gm/dL Albumin (3.2-5.2) gm/dL Globulin (2.2-3.7) gm/dL Albumin/Globulin Ratio (1.0-2.3) Disposition Pt seen by ANALYTICAL CONSULTANT/PA only: No Clinical Impression: COPD with exacerbation Dyspnea Qualifiers: Dyspnea type: acute respiratory distress Qualified Code(s): R06.03 - Acute respiratory distress Disposition: Xfer As Outpt/Obs ([facility]) Condition: Fair Referrals: Sung Real PA-C [Primary Care Provider] -
[2019-09-07] MEDS ORDERED: IPRATROPIUM/ALBUTEROL 3 ML AMPUL.NEB NEB ONE (18:22)
--- NOTE | 2019-09-07 18:45 | XRay Report ---
CLINICAL INFORMATION:Dyspnea. Wheezing TECHNIQUE: AP portable upright chest x-ray COMPARISON: Previous examinations dated 11/03/2018, 10/26/2018 FINDINGS:Lungs are negative. No parenchymal infiltrate or mass. No focal pulmonary parenchymal abnormality. Heart size and vascularity are normal. Mattie and mediastinum are negative. IMPRESSION: Negative AP chest x-ray Interpreted and Authenticated by: Sergio Dominguez 09/07/19
[2019-09-07] MEDS ORDERED: ALBUTEROL SULFATE 2.5 MG/3 ML NEBULIZER NEB ONE ×2 (18:57→22:23)
[2019-09-07] MEDS ORDERED: methylPREDNISolone SOD SUCC 125 MG/2 ML VIAL IV ONE (18:59)
[2019-09-07 19:01] LABS: Basophils # (Auto) 0.04 K/mcL (0.00-0.30); Basophils % (Auto) 0.7 % (0.0-2.0); Eosinophils # (Auto) 0.22 K/mcL (0.00-0.70); Eosinophils % (Auto) 3.7 % (0.0-7.0); Granulocytes % (Auto) 47.6 % (38.0-78.0); Hematocrit 40.2 % (34.1-44.9); Hemoglobin 12.3 g/dL (11.2-15.7); Lymphocytes % (Auto) 40.7 % (15.5-49.0); Mean Cell Volume 74.3 fL (80.0-100.0); Mean Corpuscular HGB Conc 30.6 g/dL (31.0-36.0); Mean Platelet Volume 10.3 fL (7.4-10.4); Monocytes # (Auto) 0.43 K/mcL (0.10-0.90); Monocytes % (Auto) 7.3 % (1.0-12.0); Platelet Count 294 K/mcL (140-440); RBC 5.41 M/mcL (3.59-5.38); Red Cell Distribution Width 14.6 % (11.5-14.5); WBC 5.9 K/mcL (4.50-11.00)
[2019-09-07 19:22] LABS: proBNP < 50.0 pg/ml (0-125)
[2019-09-07 19:24] LABS: ALT/SGPT 35 U/l (0-40); AST/SGOT 32 U/l (0-37); Albumin 4.1 gm/dL (3.2-5.2); Albumin/Globulin Ratio 1.5 (1.0-2.3); Alkaline Phosphatase 105 U/L (39-117); Bilirubin,Total 0.2 mg/dL (0.0-1.0); Blood Urea Nitrogen 10 mg/dl (8-23); Calcium 9.3 mg/dl (8.6-10.4); Carbon Dioxide 23 mmol/L (22-30); Chloride 105 mmol/L (96-108); Globulin 2.7 gm/dL (2.2-3.7); Glomerular Filtration Rate 78; Glucose 135 mg/dL (70-105)
--- NOTE | 2019-09-07 22:26 | Internal Med History&Physical ---
Medical - H&P: [facility] Patient information: Note initiated : 09/07/19 at 10:26 pm Service Date, if different from initiated Date: [] Patient: Alisson Gutierrez a 63 y/o F admitted on for Shortness of breath. Chief Complaint: [] Chief complaint: Short of breath History of present illness: Ms. Gutierrez is a 63 year old F with a history of active smoking/COPD with recurrent flares who presents to ER with worsening shortness of breath over the last few days. Patient has been working with her symptoms and increasing her home bronchodilators without relief. For the last 24 hours she has not been able to function or rest unable to get enough air. She endorses to sick contact including great grandkids with URI symptoms. She denies associated fever but endorses to yellow productive sputum. She denie s diarrhea, dysuria abdominal pain, headache but endorses to weakness fatigue and lethargic. She has not been able to move around and her dyspnea has progressed from maximal exertion to dyspnea at rest Initial work-up in the ER was consistent with COPD exacerbation. After multiple rounds of breathing treatment and IV steroids patient symptoms fail to improve. ABG revealed PCO2 41 pH 7.46 and remained tachycardic. X-ray chest no evidence of acute pulmonary process. Review of systems A 10 point review system was performed and is negative except for ones discussed above Medical - H&P: PMH Medical history: Elevated liver enzymes (Acute) Adult health maintenance (Chronic) COPD (chronic obstructive pulmonary disease) (Chronic) Tobacco use (Chronic) Anemia (Chronic ~2014) Anxiety (Chronic ~1994) Arthritis (Chronic ~1989) Asthma (Chronic ~1973) Depression (Chronic ~1979) Hypertension, essential (Chronic ~1994) Hyperlipidemia (Chronic) Insomnia (Chronic ~2013) Joint pain (Chronic ~1979) Bowel disease (Chronic) Degenerative lumbar disc (Chronic ~1979) Left knee pain (Chronic) Acid reflux (Resolved ~2009) Acute exacerbation of chronic obstructive airways disease (Resolved) Past Surgical History H/O colonoscopy (Chronic ~2015) H/O total hysterectomy (Chronic ~1989) History of lumpectomy of left breast (Chronic ~1995) History of surgery (Chronic ~1971) Hx of appendectomy (Chronic ~1981) Family History Brother Arthritis Diabetes Grandfather Arthritis Grandmother Cancer Mother Lung cancer Father Heart attack Daughter Heart attack Seizures Sister Stroke Social History Patient has not smoked since Saturday when this illness started Denies alcohol Lives at home with family Medical - H&P: Meds Home Medications Medication Instructions Recorded Confirmed Type omeprazole 20 mg capsule,delayed 20 mg PO QDAY 04/15/19 09/08/19 History release Cannabidiol (Cbd) Extract 100 mg PO PRN PRN 09/08/19 09/08/19 History [Epidiolex] Allergies Allergy/AdvReac Type Severity Reaction Status Date / Time fish derived AdvReac Intermediate Vomiting, Verified 04/15/19 13:13 rash, swelling Medical - H&P: Exam - Constitutional Vitals: Temp Pulse Resp BP Pulse Ox 98.6 F 91 H 22 137/62 92 09/07/19 17:53 09/07/19 21:32 09/07/19 21:32 09/07/19 21:32 09/07/19 21:32 General appearance: moderate distress Exam: Labored breathing Alert and anxious Head normocephalic Oral cavity dry No ear nose discharge Eye movement symmetrical Neck lymphadenopathy JVD S1-S2 tachycardia diminished breath sounds bases Expiratory rhonchi Abdomen soft nontender Lower extremity no sinus clubbing no joint swelling Skin no suspicious lesion Psych alert cooperative Neuro nonfocal Medical - H&P: Reslt - Labs CBC & Chem 7: 09/08/19 06:07 09/08/19 06:07 Labs: Short CBC 09/07/19 Range/Units 18:15 WBC 5.9 (4.50-11.00) K/mcL Hgb 12.3 (11.2-15.7) g/dL Hct 40.2 (34.1-44.9) % Plt Count 294 (140-440) K/mcL BMP 09/07/19 18:15 Sodium 141 Potassium 3.6 Chloride 105 Carbon Dioxide 23 BUN 10 Creatinine 0.8 Glucose 135 H Calcium 9.3 Cardiac Enzymes 09/07/19 Range/Units 18:15 Troponin T < 0.01 (0-0.03) ng/ml Liver Function 09/07/19 Range/Units 18:15 Total Bilirubin 0.2 (0.0-1.0) mg/dL AST 32 (0-37) U/l ALT 35 (0-40) U/l Alkaline Phosphatase 105 (39-117) U/L Albumin 4.1 (3.2-5.2) gm/dL Medical - H&P: A/P (1) COPD with exacerbation Current visit: Yes Status: Acute * Acute on chronic COPD exacerbation-bronchodilators/IV steroids/supplemental oxygen and pulmonary toilet. Active smoking. * Dyspnea secondary above. Continue bronchodilators/oxygen * History of hypertension-lisinopril/hydrochlorothiazide * History of depression and anxiety continue fluoxetine * Hyperlipidemia continue rosuvastatin * Tobacco dependence counseled for smoking cessation * GERD continue PPI * Degenerative disease continue meloxicam * DNR * Prophylax Heparin Plan * Observation admit * Pulmonary toilet/bronchodilators/steroids * Flu shot * Pre-existing medical addition management on home meds * Smoking cessation counseling * Discharge coordination Medical - H&P: Qual - Stroke Symptom Onset Unknown: No
[2019-09-07] MEDS ORDERED: ONDANSETRON 4 MG ODT TABLET SL PRN (23:53)
[2019-09-07] MEDS ORDERED: MAGNESIUM SULFATE 2 GM/50 ML BAG IV PRN (23:53)
[2019-09-07] MEDS ORDERED: POTASSIUM CHLORIDE 20 MEQ PACKET PO PRN (23:53)
[2019-09-07] MEDS ORDERED: ONDANSETRON 4 MG/2 ML VIAL IV PRN (23:53)
[2019-09-07] MEDS ORDERED: BISACODYL 10 MG SUPP.RECT PR PRN (23:53)
[2019-09-07] MEDS ORDERED: MELATONIN 3 MG TABLET PO PRN (23:53)
[2019-09-07] MEDS ORDERED: POLYETHYLENE GLYCOL 3350 17 GM PACKET PO PRN (23:53)
[2019-09-07] MEDS ORDERED: ACETAMINOPHEN 325 MG TABLET PO PRN (23:53)
[2019-09-08] MEDS ORDERED: IPRATROPIUM 2.5 ML AMPUL.NEB ONE (01:55)
[2019-09-08] MEDS: IPRATROPIUM 2.5 ML AMPUL.NEB NEB SCH ×7 (01:58→23:00)
[2019-09-08] MEDS ORDERED: ONDANSETRON 4 MG/2 ML VIAL ONE (05:21)
[2019-09-08] MEDS: 0.9 % SODIUM CHLORIDE 10 ML SYRINGE IV SCH ×3 (05:23→21:26)
[2019-09-08] MEDS: BUDESONIDE 0.5 MG/2 ML AMPUL.NEB NEB SCH ×2 (07:06→18:49)
[2019-09-08] MEDS: methylPREDNISolone SOD SUCC 125 MG/2 ML VIAL IV SCH ×2 (08:52→21:23)
[2019-09-08] MEDS: HEPARIN 5,000 UNIT/ML VIAL SQ SCH ×2 (08:53→21:25)
[2019-09-08] MEDS: FOLIC ACID 1 MG TABLET PO SCH (08:54)
[2019-09-08] MEDS: DOCUSATE SODIUM 100 MG CAPSULE PO SCH ×2 (08:54→21:25)
[2019-09-08] MEDS: THIAMINE 100 MG TABLET PO SCH (08:54)
[2019-09-08] MEDS: MULTIVIT,THER IRON,CA,FA & MIN 1 TABLET PO SCH (08:54)
[2019-09-08] MEDS: CYANOCOBALAMIN (VITAMIN B-12) 500 MCG TABLET PO SCH ×2 (08:54→21:23)
[2019-09-08 09:29] LABS: Hematocrit 41.9 % (34.1-44.9); Hemoglobin 12.3 g/dL (11.2-15.7); Mean Cell Volume 73.9 fL (80.0-100.0); Mean Corpuscular HGB Conc 29.4 g/dL (31.0-36.0); Mean Platelet Volume 10.7 fL (7.4-10.4); Platelet Count 310 K/mcL (140-440); RBC 5.67 M/mcL (3.59-5.38); Red Cell Distribution Width 14.6 % (11.5-14.5); WBC 5.9 K/mcL (4.50-11.00)
[2019-09-08 09:44] LABS: ALT/SGPT 32 U/l (0-40); AST/SGOT 23 U/l (0-37); Albumin 4.2 gm/dL (3.2-5.2); Albumin/Globulin Ratio 1.5 (1.0-2.3); Alkaline Phosphatase 100 U/L (39-117); Bilirubin,Direct < 0.2 mg/dL (0.0-0.3); Bilirubin,Total 0.2 mg/dL (0.0-1.0); Blood Urea Nitrogen 11 mg/dl (8-23); Calcium 9.6 mg/dl (8.6-10.4); Carbon Dioxide 23 mmol/L (22-30); Chloride 102 mmol/L (96-108); Globulin 2.8 gm/dL (2.2-3.7); Glomerular Filtration Rate 92; Glucose 152 mg/dL (70-105); Lactate Dehydrogenase 158 U/L (94-250); Triglycerides 57 mg/dl (<150); Uric Acid 5.4 mg/dL (2.5-8.0)
[2019-09-08 10:20] LABS: Lymphocytes % 10 % (15-49); Microcytosis 1+ (NONE SEEN); Monocytes % (Manual) 1 % (1-12); Platelet Estimate NORMAL (NORMAL); RBC Morphology ABNORM (NORMAL); Segmented Neutrophils % 89 % (38-78)
--- NOTE | 2019-09-08 13:51 | Internal Med Progress Note ---
Medical - PN: Subj Patient information: Note initiated : 09/08/19 at 1:48 pm Service Date, if different from initiated Date: [] Patient: Alisson Gutierrez a 63 y/o F admitted on 09/07/19 for Shortness of breath. Chief Complaint: [] Interval history: Ms. Gutierrez is a 63 year old F with a history of active smoking/COPD with recurrent flares who presents to ER with worsening shortness of breath over the last few days. Patient has been working with her symptoms and increasing her home bronchodilators without relief. For the last 24 hours she has not been able to function or rest unable to get enough air. She endorses to sick contact including great grandkids with URI symptoms. She denies associated fever but endorses to yellow productive sputum. She denies diarrhea, dysuria abdominal pain, headache but endorses to weakness fatigue and lethargic. She has not been able to move around and her dyspnea has progressed from maximal exertion to dyspnea at rest Initial work-up in the ER was consistent with COPD exacerbation. After multiple rounds of breathing treatment and IV steroids patient symptoms fail to improve. ABG revealed PCO2 41 pH 7.46 and remained tachycardic. X-ray chest no evidence of acute pulmonary process. 09/08-patient clinically improved. Much improved work of breating, able to talk in near full sentences. No overnight fever chills. White count 5.9. Continue bronchodilator breathing treatment and physical therapy. Anticipate discharge in 24 hours if clinically improving on oral steroids - Constitutional Vitals: Vital Signs Temp Pulse Resp BP Pulse Ox 96.8 F L 95 H 22 130/67 93 09/08/19 12:00 09/08/19 12:00 09/08/19 12:00 09/08/19 12:00 09/08/19 12:00 Period Temp Pulse Resp BP Sys/Tang Pulse Ox Last 24 Hr 96.8 F-98.6 F 75-102 13-26 116-168/54-95 89-100 Intake and Output 09/07/19 09/08/19 09/08/19 21:59 05:59 13:59 Intake Total 440 600 Output Total 500 Balance 440 100 Weight 185 lb 185 lb Intake & Output: Intake & Output 09/07/19 09/08/19 09/08/19 21:59 05:59 13:59 Intake Total 440 600 Output Total 500 Balance 440 100 Weight 185 lb 185 lb Intake: Oral 440 600 Output: Void Amount 500 Other: Meal Lunch Percent of Meal Consumed 50% Feeding Ability Independent Urine Color Bright Yellow Straw Urine Odor Normal # Voids 1 General appearance: no acute distress Exam: Improved work of breathing Alert oriented but anxious Minimally labored breathing No lymphedema Medical - PN: Obj Da - Labs CBC & Chem 7: 09/08/19 06:07 09/08/19 06:07 Labs: Abnormal Lab Results 09/08/19 09/08/19 09/07/19 06:07 06:07 18:15 RBC 5.67 H MCV 73.9 L MCH 21.7 L MCHC 29.4 L RDW 14.6 H MPV 10.7 H Seg Neutrophils % 89 H Lymphocytes % 10 L RBC Morphology Abnorm A Microcytosis 1+ A Glucose 152 H 135 H 09/07/19 18:15 RBC 5.41 H MCV 74.3 L MCH 22.7 L MCHC 30.6 L RDW 14.6 H MPV Seg Neutrophils % Lymphocytes % RBC Morphology Microcytosis Glucose Meds: Medications Acetaminophen (Tylenol) 650 mg PO Q4-6HP PRN; Protocol PRN Reason: Per Pain Protocol/Fever > 101 Last Admin: 09/08/19 07:40 Dose: 650 mg Documented by: Bisacodyl (Dulcolax) 10 mg TN Q2-3DAYS PRN PRN Reason: Constipation Budesonide (Pulmicort) 0.5 mg NEB Q12 [facility] Last Admin: 09/08/19 07:06 Dose: 0.5 mg Documented by: Cyanocobalamin (Vitamin B-12) 1,000 mcg PO BID [facility] Stop: 09/12/19 21:01 Last Admin: 09/08/19 08:54 Dose: 1,000 mcg Documented by: Docusate Sodium (Colace) 100 mg PO BID [facility] Last Admin: 09/08/19 08:54 Dose: 100 mg Documented by: Folic Acid (Folic Acid) 1 mg PO DAILY [facility] Last Admin: 09/08/19 08:54 Dose: 1 mg Documented by: Guaifenesin (Robitussin) 100 mg PO Q6HP PRN PRN Reason: Congestion Last Admin: 09/08/19 12:24 Dose: 100 mg Documented by: Heparin Sodium (Porcine) (Heparin) 5,000 unit SQ Q12 [facility] Last Admin: 09/08/19 08:53 Dose: 5,000 unit Documented by: Magnesium Sulfate (Magnesium Sulfate) 2 gm in 50 mls @ 50 mls/hr IV UD PRN PRN Reason: MG = or < 1.7 Ipratropium Norco (Atrovent) 2.5 ml NEB Q4HRT [facility] Last Admin: 09/08/19 11:11 Dose: 2.5 ml Documented by: Iron Carb/Multivit/Beaver/Folic Acid (Multivitamin W/Minerals) 1 tab PO DAILY [facility] Last Admin: 09/08/19 08:54 Dose: 1 tab Documented by: Melatonin (Melatonin 3mg Tablet) 3 mg PO HSP PRN PRN Reason: Insomnia Methylprednisolone Sodium Succinate (Solu-Medrol) 60 mg IV Q12 [facility] Last Admin: 09/08/19 08:52 Dose: 60 mg Documented by: Ondansetron HCl (Zofran Odt) 4 mg SL Q4-6HP PRN; Protocol PRN Reason: Nausea And Vomiting Ondansetron HCl (Zofran) 4 mg IV Q4-6HP PRN; Protocol PRN Reason: Nausea And Vomiting Polyethylene Glycol (Miralax) 17 gm PO DAILYP PRN PRN Reason: Constipation Potassium Chloride (Klor-Con) 40 meq PO DAILYP PRN PRN Reason: K+ < 3.5 Senna/Docusate Sodium (Senna Plus Tablet) 1 tab PO HS [facility] Sodium Chloride (Saline Flush) 10 ml IV Q8 [facility] Last Admin: 09/08/19 12:24 Dose: 10 ml Documented by: Thiamine HCl (Vitamin B1) 100 mg PO DAILY [facility] Last Admin: 09/08/19 08:54 Dose: 100 mg Documented by: Medical - PN: A/P - Time Spent With Patient Total time spent is greater than 50% in coordination of care (as documented) at patient's floor/unit and/or counseling patient: 25 - 35 minutes (1) COPD with exacerbation Status: Acute Assessment and plan: * Acute on chronic COPD exacerbation-clinical improvement noted on bronchodilators/IV steroids/supplemental oxygen and pulmonary toilet. Continue 3 days of azithromycin * Dyspnea secondary to above. Clinical improvement noted on treatment as above * History of hypertension-stable on home dose lisinopril/hydrochlorothiazide * History of depression / anxiety continue fluoxetine * Hyperlipidemia on home dose rosuvastatin * Tobacco dependence aggressive counseling for smoking cessation. Patient understands the risk and endorses that she is attempting to quit * GERD continue PPI * Degenerative disease continue meloxicam * DNR * Prophylax Heparin Plan * Treatments as above * Pulmonary toilet/bronchodilators/steroids * Pre-existing medical addition management on home meds * Discharge planning Current Visit: Yes Medical - PN: Qual - Stroke Symptom Onset Unknown: No - VTE Deep Vein Thrombosis/Pulmonary Embolism Present on Admission: No
[2019-09-08] MEDS: AZITHROMYCIN 250 MG TABLET PO SCH (15:04)
[2019-09-08] MEDS ORDERED: SENNOSIDES/DOCUSATE SODIUM 1 TAB TABLET PO SCH (21:00)
[2019-09-09] MEDS: IPRATROPIUM 2.5 ML AMPUL.NEB NEB SCH ×3 (03:48→11:24)
[2019-09-09 07:17] LABS: Hematocrit 39.1 % (34.1-44.9); Hemoglobin 11.8 g/dL (11.2-15.7); Mean Cell Volume 74.2 fL (80.0-100.0); Mean Corpuscular HGB Conc 30.2 g/dL (31.0-36.0); Platelet Count 327 K/mcL (140-440); RBC 5.27 M/mcL (3.59-5.38); Red Cell Distribution Width 14.6 % (11.5-14.5); WBC 13.9 K/mcL (4.50-11.00)
[2019-09-09 07:23] LABS: ALT/SGPT 23 U/l (0-40); AST/SGOT 15 U/l (0-37); Albumin 4.1 gm/dL (3.2-5.2); Albumin/Globulin Ratio 1.7 (1.0-2.3); Alkaline Phosphatase 93 U/L (39-117); Bilirubin,Direct < 0.2 mg/dL (0.0-0.3); Bilirubin,Total 0.3 mg/dL (0.0-1.0); Blood Urea Nitrogen 16 mg/dl (8-23); Calcium 9.4 mg/dl (8.6-10.4); Carbon Dioxide 25 mmol/L (22-30); Chloride 103 mmol/L (96-108); Globulin 2.4 gm/dL (2.2-3.7); Glomerular Filtration Rate 92; Glucose 141 mg/dL (70-105); Lactate Dehydrogenase 136 U/L (94-250); Phosphorous 3.8 mg/dL (2.7-4.5); Triglycerides 110 mg/dl (<150); Uric Acid 4.9 mg/dL (2.5-8.0)
[2019-09-09] MEDS: BUDESONIDE 0.5 MG/2 ML AMPUL.NEB NEB SCH (07:25)
[2019-09-09] MEDS: 0.9 % SODIUM CHLORIDE 10 ML SYRINGE IV SCH (08:13)
[2019-09-09] MEDS: methylPREDNISolone SOD SUCC 125 MG/2 ML VIAL IV SCH (08:14)
[2019-09-09] MEDS: THIAMINE 100 MG TABLET PO SCH (08:14)
[2019-09-09] MEDS: MULTIVIT,THER IRON,CA,FA & MIN 1 TABLET PO SCH (08:14)
[2019-09-09] MEDS: CYANOCOBALAMIN (VITAMIN B-12) 500 MCG TABLET PO SCH (08:14)
[2019-09-09] MEDS: DOCUSATE SODIUM 100 MG CAPSULE PO SCH (08:14)
[2019-09-09] MEDS: HEPARIN 5,000 UNIT/ML VIAL SQ SCH (08:14)
[2019-09-09] MEDS: FOLIC ACID 1 MG TABLET PO SCH (08:14)
[2019-09-09] MEDS: AZITHROMYCIN 250 MG TABLET PO SCH (08:14)
[2019-09-09 08:46] LABS: Anisocytosis FEW (NONE SEEN); Lymphocytes % 10 % (15-49); Monocytes % (Manual) 3 % (1-12); Platelet Estimate NORMAL (NORMAL); RBC Morphology ABNORM (NORMAL); Segmented Neutrophils % 87 % (38-78)
[2019-09-09] MEDS ORDERED: FLU VACC QS2019-20(6MOS UP)/PF 60 MCG/0.5 ML SYRINGE IM ONE (10:00)
--- NOTE | 2019-09-09 12:59 | Discharge Summary ---
Medical - DS: Prov Patient information: Note initiated : 09/09/19 at 12:57 pm Service Date, if different from initiated Date: [] Patient: Alisson Gutierrez 63 y/o F admitted on 09/07/19 for Shortness of breath. Chief Complaint: [] Date of admission: 09/07/19 23:48 Discharge date: 09/09/19 Primary care physician: Sung Real Consults: 09/08/19 07:50 Consult to Physician [CONS] Routine Comment: Consulting Provider: Lion Calle Reason For Exam: Physician to Consult Medical - DS: Meds - Discharge Medications Prescriptions: predniSONE [Deltasone] 40 mg PO DAILY #10 tab Transmission Status: Sent to [facility] Venlafaxine [Effexor] 37.5 mg PO BID #60 tab Transmission Status: Sent to [facility] Azithromycin [Zithromax] 500 mg PO DAILY #2 tab Transmission Status: Sent to [facility] Active and Home Medications: Home Medications omeprazole 20 mg capsule,delayed release 20 mg PO QDAY 04/15/19 [History Confirmed 09/08/19 Last Taken 09/07/19 08:00] Cannabidiol (Cbd) Extract [Epidiolex] 100 mg PO PRN PRN 09/08/19 [History Confirmed 09/08/19 Last Taken 09/03/19 0800] Azithromycin [Zithromax] 500 mg PO DAILY #2 tab 09/09/19 [Rx Last Taken Unknown] Venlafaxine [Effexor] 37.5 mg PO BID #60 tab 09/09/19 [Rx Last Taken Unknown] predniSONE [Deltasone] 40 mg PO DAILY #10 tab 09/09/19 [Rx Last Taken Unknown] Medical - DS: Hosp Hospital Course: Discharge diagnosis * Acute on chronic COPD exacerbation-clinical improvement noted on bronchodilators/IV steroids/supplemental oxygen and pulmonary toilet. Transition to oral antibiotic for additional 2 days/oral steroid for additional 5 days. Refrain from smoking. * Dyspnea secondary to above. Clinically resolved now at baseline * History of hypertension-stable on home dose lisinopril/hydrochlorothiazide * History of depression / anxiety continue starting Effexor. Q BH eval. No active suicidal ideation. Safe discharge home. We will follow-up with behavioral health services in the outpatient. Schedule appointment prior to discharge. * Tobacco dependence counseled for cessation. * Degenerative disease continue meloxicam Brief hospital course Ms. Gutierrez is a 63 year old F with a history of active smoking/COPD with recurrent flares who presents to ER with worsening shortness of breath over the last few days. Patient has been working with her symptoms and increasing her home bronchodilators without relief. For the last 24 hours she has not been able to function or rest unable to get enough air. She endorses to sick contact including great grandkids with URI symptoms. She denies associated fever but endorses to yellow productive sputum. She denies diarrhea, dysuria abdominal pain, headache but endorses to weakness fatigue and lethargic. She has not been able to move around and her dyspnea has progressed from maximal exertion to dyspnea at rest Initial work-up in the ER was consistent with COPD exacerbation. After multiple rounds of breathing treatment and IV steroids patient symptoms fail to improve. ABG revealed PCO2 41 pH 7.46 and remained tachycardic. X-ray chest no evidence of acute pulmonary process. 09/08-patient clinically improved. Much improved work of breating, able to talk in near full sentences. No overnight fever chills. White count 5.9. Continue bronchodilator breathing treatment and physical therapy. Anticipate discharge in 24 hours if clinically improving on oral steroids 09/09-patient doing remarkably better. Improved shortness of breath. Currently on room air. Transition to oral steroids/continue additional 2 days oral Zithromax. Advised to follow-up primary care physician in 5 to 7 days/behavioral health services as soon as possible. No suicidal ideation. Continue Effexor Discharge diagnosis: . - Time Spent with Patient Total time spent providing and/or coordinating discharge services: Greater than 30 minutes Medical - DS: Exam - Constitutional Vitals: Vital Signs Temp Pulse Pulse Resp BP BP BP 09/09/19 12:00 97.6 F 75 20 152/83 09/09/19 11:24 92 H 15 09/09/19 08:00 97.7 F 85 20 138/69 09/09/19 07:44 88 16 09/09/19 07:25 80 15 09/09/19 03:59 97.6 F 75 16 138/65 09/08/19 23:00 97.8 F 86 83 16 131/68 02/18/20 20:02 96 H 20 09/08/19 20:01 97.8 F 92 H 28 H 134/72 09/08/19 16:00 97.5 F 89 22 144/71 09/08/19 15:00 86 20 Pulse Ox 09/09/19 12:00 93 09/09/19 11:24 09/09/19 08:00 92 09/09/19 07:44 93 09/09/19 07:25 09/09/19 03:59 90 09/08/19 23:00 93 09/08/19 20:02 09/08/19 20:01 93 09/08/19 16:00 93 09/08/19 15:00 Intake and Output 09/08/19 09/09/19 09/09/19 21:59 05:59 13:59 Intake Total 440 400 Output Total 701 400 Balance -261 0 Intake: Oral 440 400 Output: Void Amount 700 400 # of times incontinent of urine 1 Other: Meal Breakfast Percent of Meal Consumed 90% Feeding Ability Independent Weight 189 lb 8 oz Medical - DS: Data Labs on day of discharge: Labs from last 24 hours 09/09/19 09/09/19 04:36 04:36 WBC 13.9 H RBC 5.27 Hgb 11.8 Hct 39.1 MCV 74.2 L MCH 22.4 L MCHC 30.2 L RDW 14.6 H Plt Count 327 MPV 11.0 H Total Counted 100 Seg Neutrophils % 87 H Band Neutrophils % Not Reportable Lymphocytes % 10 L Monocytes % (Manual) 3 Platelet Estimate Normal RBC Morphology Abnorm A Anisocytosis Few A Sodium 140 Potassium 4.1 Chloride 103 Carbon Dioxide 25 Anion Gap 12.0 BUN 16 Creatinine 0.7 GFR Calculation 92 Glucose 141 H Uric Acid 4.9 Calcium 9.4 Phosphorus 3.8 Magnesium 2.2 Total Bilirubin 0.3 Direct Bilirubin < 0.2 GGT 27 AST 15 ALT 23 Alkaline Phosphatase 93 Lactate Dehydrogenase 136 Total Protein 6.5 Albumin 4.1 Globulin 2.4 Albumin/Globulin Ratio 1.7 Triglycerides 110 Medical - DS: A/P - Patient/Caregiver Discharge Instructions Activity: increase activity as tolerated Diet: Regular Diet Additional Instructions: Continue antibiotics for additional 2 days oral prednisone for 5 days Advised to quit smoking Follow-up PCP in 5 to 7 days Follow-up behavioral services next available appointment Continue Effexor 37 twice daily Prescriptions: predniSONE [Deltasone] 40 mg PO DAILY #10 tab Transmission Status: Sent to [facility] Venlafaxine [Effexor] 37.5 mg PO BID #60 tab Transmission Status: Sent to [facility] Azithromycin [Zithromax] 500 mg PO DAILY #2 tab Transmission Status: Sent to [facility] - Problem Maintenance (1) COPD with exacerbation Status: Acute - Follow up Plan Follow up with: Sung Real PA-C [Primary Care Provider] - Disposition: Home, Self-Care Prognosis: Fair Rehab Potential: Fair I certify that the patient requires SNF services: No Overall status at discharge: patient is progressing back to baseline Medical - DS: Qual - VTE Deep Vein Thrombosis/Pulmonary Embolism Present on Admission: No
== END 2019-09-09 14:25 | disposition home or self-care (01) ==
LOC: MEDSUR 17:51 → ED 17:51 → MEDSUR 23:48
PROVIDERS: ADMIT Internal Medicine; ATTEND Internal Medicine

== ENCOUNTER 2020-06-21 19:26 | Inpatient (IN) ==
[2020-06-21] MEDS ORDERED: LACTATED RINGERS 1,000 ML IV ONE (20:01)
--- NOTE | 2020-06-21 20:05 | Emergency Department Note ---
Altered Mental Status HPI General Chief Complaint: Altered Mental Status Stated Complaint: alt loc Time Seen by Provider: 06/21/20 19:52 Source: patient and RN notes reviewed Mode of arrival: EMS Limitations: altered mental status History of Present Illness HPI Narrative: Narrative: This patient comes in from home for altered mental status. She has had fever for 1 day and some cough and shortness of breath and is wheezing but does have a history of COPD. I cannot get the patient to talk to me very much. She nods yes to about everything I ask her. If that is true then she admits to headache cough shortness of breath abdominal discomfort with nausea. I am not sure how good of a historian she is at this time. MD complaint: altered mental status and confusion Timing confirmed by: family member Consistency of Symptoms: getting worse Associated symptoms: Reports cough, fever, headaches, nausea/vomiting and shortness of breath Related Data Home Medications Medication Instructions Recorded Confirmed omeprazole 20 mg capsule,delayed 20 mg PO QDAY 04/15/19 05/27/20 release auto-pap #1 ea 03/30/20 03/30/20 Previous Rx's Medication Instructions Recorded ondansetron 4 mg SL Q6HP PRN #20 tab 01/07/20 budesonide-formoterol HFA 160 2 puff INHALATION Q12H #10.2 g 01/15/20 mcg-4.5 mcg/actuation aerosol inhaler hydrocodone 5 mg-acetaminophen 325 1 tab PO TID PRN #90 tab 02/02/20 mg tablet ipratropium 0.5 mg-albuterol 3 mg 3 ml INHALATION QID PRN #180 ml 02/29/20 (2.5 mg base)/3 mL nebulization soln albuterol sulfate 90 mcg/actuation 2 puff INHALATION Q6H PRN #18 g 03/30/20 aerosol inhaler fluoxetine 40 mg capsule 80 mg PO QAM #180 cap 03/30/20 clobetasol 0.05 % scalp solution 1 applic TOPICAL QAM AND QPM #50 ml 05/12/20 Allergies Allergy/AdvReac Type Severity Reaction Status Date / Time fish derived AdvReac Intermediate Vomiting, Verified 06/21/20 19:34 rash, swelling Review of Systems ROS ROS Narrative: Narrative: All systems ED: reviewed and negative except as stated. [facility] Narrative Patient History Narrative: Narrative: Medical/Surgical/Family History All Active Problems (Updated 06/21/20 @ 21:23 by Cyril Villela MD) Urinary tract infection (Acute) Sepsis (Acute) Scaly patch rash (Acute) Sleep apnea (Acute) Thoracic back pain (Acute) Macromastia (Acute) Vitamin B12 deficiency (Acute) COPD with exacerbation (Acute) Dyspnea (Acute) Gastroenteritis (Acute) Nausea and vomiting in adult (Acute) UTI (urinary tract infection) (Acute) Nocturnal hypoxia (Chronic) Witnessed apneic spells (Chronic) Hypersomnia (Chronic) GERD (gastroesophageal reflux disease) (Chronic) Tobacco use (Chronic) COPD (chronic obstructive pulmonary disease) (Chronic) Obesity (BMI 30.0-34.9) (Chronic) Hyperlipidemia (Chronic) Hypertension, essential (Chronic ~1994) Chronic knee pain (Chronic) Anxiety (Chronic ~1994) Arthritis (Chronic ~1989) Asthma (Chronic ~1973) Depression (Chronic ~1979) Insomnia (Chronic ~2013) Joint pain (Chronic ~1979) Bowel disease (Chronic) Degenerative lumbar disc (Chronic ~1979) Medical History (Updated 06/21/20 @ 21:23 by Cyril Villela MD) Acid reflux (Resolved ~2009) Acute exacerbation of chronic obstructive airways disease (Resolved) Acute exacerbation of chronic obstructive airways disease (Resolved) Acute seborrheic dermatitis (Inactive) Anemia (Resolved ~2014) Anxiety (Chronic ~1994) Arthritis (Chronic ~1989) Asthma (Chronic ~1973) Bowel disease (Chronic) Chronic knee pain (Chronic) COPD (chronic obstructive pulmonary disease) (Chronic) Degenerative lumbar disc (Chronic ~1979) Depression (Chronic ~1979) Elevated liver enzymes (Resolved) GERD (gastroesophageal reflux disease) (Chronic) History of pneumonia (Resolved) Hyperlipidemia (Chronic) Hypersomnia (Chronic) Hypertension, essential (Chronic ~1994) Insomnia (Chronic ~2013) Joint pain (Chronic ~1979) Left knee pain (Resolved) Macromastia (Acute) Nocturnal hypoxia (Chronic) Obesity (BMI 30.0-34.9) (Chronic) Scaly patch rash (Acute) Sleep apnea (Acute) Thoracic back pain (Acute) Tobacco use (Chronic) Witnessed apneic spells (Chronic) Surgical History H/O colonoscopy (Chronic ~2015) 2015 repeat due H/O total hysterectomy (Chronic ~1989) History of lumpectomy of left breast (Chronic ~1995) Tumor removed History of surgery (Chronic ~1971) Tumor removed from left leg Hx of appendectomy (Chronic ~1981) Family History Brother Arthritis Diabetes Brothers Grandfather Arthritis Maternal Grandmother Cancer Maternal Mother Lung cancer Father Heart attack Daughter Heart attack Seizures Sister Stroke Other Fall Social History Smoking Status: Former smoker Alcohol Intake Frequency: does not drink Substance Use: does not use Exam Narrative Narrative: Narrative: General Limitations: altered mental status Head Head: Present atraumatic, normocephalic and normal inspection Eye Eye: Present normal appearance and EOMI; Absent scleral icterus and conjunctival injection ENT ENT: Present mucous membranes dry Neck Neck: Present normal inspection and full ROM Chest Chest: Present normal inspection and symmetric chest wall rise Respiratory Respiratory: Present wheezes Cardiovascular Cardiovascular: Present regular rate, normal rhythm and normal heart sounds Adbominal Abdominal: Present soft and distention; Absent tenderness Extremities Extremities: Present normal inspection and full ROM; Absent pedal edema and pretibial edema Skin Skin: Present warm (WNL) and dry; Absent diaphoresis Course Vital Signs Vital signs: Vital Signs Temperature 100.2 F H 06/21/20 19:27 Pulse Rate 88 06/21/20 19:27 Respiratory Rate 18 06/21/20 19:27 Blood Pressure 123/60 06/21/20 19:27 Pulse Oximetry (%) 91 06/21/20 19:27 Temperature 100.5 F H 06/21/20 21:18 Pulse Rate 81 06/21/20 20:31 Respiratory Rate 21 06/21/20 20:31 Blood Pressure 114/78 06/21/20 20:31 Pulse Oximetry (%) 94 06/21/20 20:31 MDM MDM Narrative Medical decision making narrative: Narrative: This patient with altered mental status may have urosepsis. Her Covid swab was negative her chest x-ray looks normal her white count was a little bit elevated and her lactic acid was normal we did cultures and start her on Levaquin and discussed the case with Dr. Christianson who will admit her to the hospital. Lab Data Lab results reviewed: Yes I reviewed the patient's lab results. Lab results narrative: Urinalysis is consistent with UTI. Result diagrams: 06/21/20 19:30 06/21/20 19:30 Labs: Lab Results 06/21/20 06/21/20 06/21/20 Range/Units 19:30 19:30 19:30 WBC 11.9 H (4.5-11.0) K/mcL RBC 5.38 H (4.00-5.20) M/mcL Hgb 12.1 (12.0-15.0) g/dL Hct 39.1 (36.0-48.0) % MCV 72.7 L (80.0-100.0) fL MCH 22.5 L (26.0-34.0) pg MCHC 30.9 L (31.0-36.0) g/dL RDW 14.9 H (11.5-14.5) % Plt Count 304 (140-440) K/mcL MPV 10.7 H (7.4-10.4) fL Neut % (Auto) 76.5 (38.0-78.0) % Lymph % (Auto) 14.7 L (15.0-49.0) % Whitman % (Auto) 7.9 (1.0-12.0) % Eos % (Auto) 0.6 (0.0-7.0) % Baso % (Auto) 0.3 (0.0-2.0) % Lymph # (Auto) 1.74 (1.50-4.80) K/mcL Whitman # (Auto) 0.94 H (0.10-0.90) K/mcL Eos # (Auto) 0.07 (0.00-0.70) K/mcL Baso # (Auto) 0.03 (0.00-0.20) K/mcL Absolute Neutrophils 9.09 H (1.80-8.00) K/mcL VBG Lactic Acid (0.5-2.0) mmol/L Sodium 137 (133-145) mmol/L Potassium 3.4 (3.3-5.1) mmol/L Chloride 99 (96-108) mmol/L Carbon Dioxide 23 (22-30) mmol/L Anion Gap 15.0 (8.0-16.0) BUN 9 (8-23) mg/dL Creatinine 0.8 (0.6-1.1) mg/dL GFR Calculation 78 Glucose 102 (70-105) mg/dL Calcium 9.0 (8.6-10.4) mg/dL Total Bilirubin 0.5 (0.1-1.0) mg/dL AST 27 (<32) U/L ALT 41 H (<40) U/L Alkaline Phosphatase 117 (39-117) U/L Troponin T < 0.01 (<0.03) ng/mL Total Protein 6.7 (5.9-8.4) gm/dL Albumin 4.1 (3.2-5.2) gm/dL Globulin 2.6 (2.2-3.7) gm/dL Albumin/Globulin Ratio 1.6 (1.0-2.3) Urine Color Urine Appearance (Clear) Urine pH (5.0-9.0) Ur Specific [place] (1.000-1.035) Urine Protein (Negative) mg/dL Urine Glucose (UA) (Negative) mg/dL Urine Ketones (Negative) mg/dL Urine Occult Blood (Negative) mg/dL Urine Nitrate (Negative) Urine Bilirubin (Negative) mg/dL Urine Urobilinogen mg/dL Ur Leukocyte Esterase (Negative) /ug Urine RBC (0-1) /hpf Urine WBC (0-4) /hpf Ur Squamous Epith Cells (0-4) /hpf Urine Bacteria (0) /hpf Urine Mucus (None) /hpf Ur Culture Indicated? SARS-CoV-2 (PCR) (Negative) 06/21/20 06/21/20 06/21/20 Range/Units 19:30 19:40 19:45 WBC (4.5-11.0) K/mcL RBC (4.00-5.20) M/mcL Hgb (12.0-15.0) g/dL Hct (36.0-48.0) % MCV (80.0-100.0) fL MCH (26.0-34.0) pg MCHC (31.0-36.0) g/dL RDW (11.5-14.5) % Plt Count (140-440) K/mcL MPV (7.4-10.4) fL Neut % (Auto) (38.0-78.0) % Lymph % (Auto) (15.0-49.0) % Whitman % (Auto) (1.0-12.0) % Eos % (Auto) (0.0-7.0) % Baso % (Auto) (0.0-2.0) % Lymph # (Auto) (1.50-4.80) K/mcL Whitman # (Auto) (0.10-0.90) K/mcL Eos # (Auto) (0.00-0.70) K/mcL Baso # (Auto) (0.00-0.20) K/mcL Absolute Neutrophils (1.80-8.00) K/mcL VBG Lactic Acid 1.3 (0.5-2.0) mmol/L Sodium (133-145) mmol/L Potassium (3.3-5.1) mmol/L Chloride (96-108) mmol/L Carbon Dioxide (22-30) mmol/L Anion Gap (8.0-16.0) BUN (8-23) mg/dL Creatinine (0.6-1.1) mg/dL GFR Calculation Glucose (70-105) mg/dL Calcium (8.6-10.4) mg/dL Total Bilirubin (0.1-1.0) mg/dL AST (<32) U/L ALT (<40) U/L Alkaline Phosphatase (39-117) U/L Troponin T (<0.03) ng/mL Total Protein (5.9-8.4) gm/dL Albumin (3.2-5.2) gm/dL Globulin (2.2-3.7) gm/dL Albumin/Globulin Ratio (1.0-2.3) Urine Color Rosemary Urine Appearance Hazy A (Clear) Urine pH 5.0 (5.0-9.0) Ur Specific [place] 1.021 (1.000-1.035) Urine Protein Negative (Negative) mg/dL Urine Glucose (UA) Negative (Negative) mg/dL Urine Ketones Negative (Negative) mg/dL Urine Occult Blood 0.03 (Negative) mg/dL Urine Nitrate Pos A (Negative) Urine Bilirubin Negative (Negative) mg/dL Urine Urobilinogen 4.0 A mg/dL Ur Leukocyte Esterase 75 A (Negative) /ug Urine RBC 1 (0-1) /hpf Urine WBC 44 H (0-4) /hpf Ur Squamous Epith Cells 1 (0-4) /hpf Urine Bacteria Many A (0) /hpf Urine Mucus Many A (None) /hpf Ur Culture Indicated? yes SARS-CoV-2 (PCR) Negative (Negative) Radiology Data Radiology results reviewed: Yes I reviewed the patient's radiology results. Radiology results narrative: Chest x-ray looks normal to my reading Discharge Plan Patient/Caregiver Discharge Instructions Pt seen by [facility] CR[facility] OPERATOR/PA only: No Clinical Impression: Urinary tract infection, Sepsis Patient Disposition: Xfer As Inpt ([facility]) Follow up with: Rocky Damon MD [Primary Care Provider] - Prescriptions: No Action budesonide-formoterol [Symbicort] 160-4.5 mcg/actuation HFA aerosol inhaler 2 puff INHALATION Q12H Qty: 10.2 RF: 11 ipratropium-albuterol 0.5 mg-3 mg(2.5 mg base)/3 mL solution for nebulization 3 ml INHALATION QID PRN (Reason: shortness of breath or wheezing) Qty: 180 RF: 3 fluoxetine [Prozac] 40 mg capsule 80 mg PO QAM Qty: 180 RF: 1 clobetasol 0.05 % solution 1 applic TOPICAL QAM AND QPM Qty: 50 RF: 1 omeprazole 20 mg capsule,delayed release(DR/EC) 20 mg PO QDAY RF: 0 hydrocodone-acetaminophen 5-325 mg tablet 1 tab PO TID PRN (Reason: pain) Qty: 90 RF: 0 (DME) auto-pap Qty: 1 RF: 0 albuterol sulfate 90 mcg/actuation HFA aerosol inhaler 2 puff INHALATION Q6H PRN (Reason: shortness of breath or wheezing) Qty: 18 RF: 1 ondansetron 4 MG tablet 4 mg SL Q6HP PRN (Reason: Nausea) Qty: 20 RF: 0
[2020-06-21 20:26] LABS: Appearance,Urine HAZY (Clear); Bacteria,Urine MANY /hpf (0); Bilirubin,Urine Negative (Negative); Color,Urine AMBER; Culture Indicated,Urine yes; Glucose,Urine (UA) Negative (Negative); Ketones,Urine Negative (Negative); Leukocyte Esterase,Urine 75 /ug (Negative); Mucus,Urine MANY /hpf; Nitrate,Urine POS (Negative); Protein,Urine Negative (Negative); Specific Gravity,Urine 1.021 (1.000-1.035); Urine Blood 0.03 mg/dL (Negative); Urine RBC 1 /hpf (0-1); Urine Squamous Epithelial Cell 1 /hpf (0-4); Urine WBC 44 /hpf (0-4)
[2020-06-21 20:43] LABS: Basophils # (Auto) 0.03 K/mcL (0.00-0.20); Basophils % (Auto) 0.3 % (0.0-2.0); Eosinophils # (Auto) 0.07 K/mcL (0.00-0.70); Eosinophils % (Auto) 0.6 % (0.0-7.0); Hematocrit 39.1 % (36.0-48.0); Hemoglobin 12.1 g/dL (12.0-15.0); Lymphocytes # (Auto) 1.74 K/mcL (1.50-4.80); Lymphocytes % (Auto) 14.7 % (15.0-49.0); Mean Cell Volume 72.7 fL (80.0-100.0); Mean Corpuscular HGB Conc 30.9 g/dL (31.0-36.0); Mean Platelet Volume 10.7 fL (7.4-10.4); Monocytes # (Auto) 0.94 K/mcL (0.10-0.90); Monocytes % (Auto) 7.9 % (1.0-12.0); Neutrophils % (Auto) 76.5 % (38.0-78.0); Platelet Count 304 K/mcL (140-440); RBC 5.38 M/mcL (4.00-5.20); Red Cell Distribution Width 14.9 % (11.5-14.5); WBC 11.9 K/mcL (4.5-11.0)
[2020-06-21] MEDS ORDERED: LEVOFLOXACIN 750 MG/150 ML BAG IV ONE (20:44)
[2020-06-21 20:45] LABS: ALT/SGPT 41 U/L (<40); AST/SGOT 27 U/L (<32); Albumin 4.1 gm/dL (3.2-5.2); Albumin/Globulin Ratio 1.6 (1.0-2.3); Alkaline Phosphatase 117 U/L (39-117); Bilirubin,Total 0.5 mg/dL (0.1-1.0); Blood Urea Nitrogen 9 mg/dL (8-23); Carbon Dioxide 23 mmol/L (22-30); Chloride 99 mmol/L (96-108); Globulin 2.6 gm/dL (2.2-3.7); Glomerular Filtration Rate 78; Glucose 102 mg/dL (70-105)
[2020-06-21] MEDS ORDERED: ACETAMINOPHEN 325 MG TABLET PO ONE (21:06)
--- NOTE | 2020-06-21 21:27 | Nephrology History & Physical ---
HPI History of Present Illness Patient information: Note initiated : 06/21/20 at 9:26 pm Service Date, if different from initiated Date: [] Patient: Alisson Gutierrez a 64 y/o F admitted on for alt loc. Chief Complaint: [] History of present illness: Ms. Gutierrez is a 64 year old F Presents the ED with fever PFSH PFSH All Active Problems (Updated 06/21/20 @ 21:23 by Cyril Villela MD) Urinary tract infection (Acute) Sepsis (Acute) Scaly patch rash (Acute) Sleep apnea (Acute) Thoracic back pain (Acute) Macromastia (Acute) Vitamin B12 deficiency (Acute) COPD with exacerbation (Acute) Dyspnea (Acute) Gastroenteritis (Acute) Nausea and vomiting in adult (Acute) UTI (urinary tract infection) (Acute) Nocturnal hypoxia (Chronic) Witnessed apneic spells (Chronic) Hypersomnia (Chronic) GERD (gastroesophageal reflux disease) (Chronic) Tobacco use (Chronic) COPD (chronic obstructive pulmonary disease) (Chronic) Obesity (BMI 30.0-34.9) (Chronic) Hyperlipidemia (Chronic) Hypertension, essential (Chronic ~1994) Chronic knee pain (Chronic) Anxiety (Chronic ~1994) Arthritis (Chronic ~1989) Asthma (Chronic ~1973) Depression (Chronic ~1979) Insomnia (Chronic ~2013) Joint pain (Chronic ~1979) Bowel disease (Chronic) Degenerative lumbar disc (Chronic ~1979) Medical History (Updated 06/21/20 @ 21:23 by Cyril Villela MD) Acid reflux (Resolved ~2009) Acute exacerbation of chronic obstructive airways disease (Resolved) Acute exacerbation of chronic obstructive airways disease (Resolved) Acute seborrheic dermatitis (Inactive) Anemia (Resolved ~2014) Anxiety (Chronic ~1994) Arthritis (Chronic ~1989) Asthma (Chronic ~1973) Bowel disease (Chronic) Chronic knee pain (Chronic) COPD (chronic obstructive pulmonary disease) (Chronic) Degenerative lumbar disc (Chronic ~1979) Depression (Chronic ~1979) Elevated liver enzymes (Resolved) GERD (gastroesophageal reflux disease) (Chronic) History of pneumonia (Resolved) Hyperlipidemia (Chronic) Hypersomnia (Chronic) Hypertension, essential (Chronic ~1994) Insomnia (Chronic ~2013) Joint pain (Chronic ~1979) Left knee pain (Resolved) Macromastia (Acute) Nocturnal hypoxia (Chronic) Obesity (BMI 30.0-34.9) (Chronic) Scaly patch rash (Acute) Sleep apnea (Acute) Thoracic back pain (Acute) Tobacco use (Chronic) Witnessed apneic spells (Chronic) Surgical History H/O colonoscopy (Chronic ~2015) 2015 repeat due H/O total hysterectomy (Chronic ~1989) History of lumpectomy of left breast (Chronic ~1995) Tumor removed History of surgery (Chronic ~1971) Tumor removed from left leg Hx of appendectomy (Chronic ~1981) Family History Brother Arthritis Diabetes Brothers Grandfather Arthritis Maternal Grandmother Cancer Maternal Mother Lung cancer Father Heart attack Daughter Heart attack Seizures Sister Stroke Other Fall Social History (Updated 05/03/20 @ 09:24 by Rachell Grant [facility]) marital status: other: Children-3 smoking status: Former smoker smoking status start date: 10/30/71 alcohol intake frequency: does not drink substance use type: does not use MEDS/ALLERGIES Home Medications and Allergies Home Medications Medication Instructions Recorded Confirmed Type omeprazole 20 mg capsule,delayed 20 mg PO QDAY 04/15/19 05/27/20 History release ondansetron 4 mg SL Q6HP PRN #20 tab 01/07/20 05/27/20 Rx budesonide-formoterol HFA 160 2 puff INHALATION Q12H #10.2 g 01/15/20 05/27/20 Rx mcg-4.5 mcg/actuation aerosol inhaler hydrocodone 5 mg-acetaminophen 325 1 tab PO TID PRN #90 tab 02/02/20 05/27/20 Rx mg tablet ipratropium 0.5 mg-albuterol 3 mg 3 ml INHALATION QID PRN #180 ml 02/29/20 05/27/20 Rx (2.5 mg base)/3 mL nebulization soln albuterol sulfate 90 mcg/actuation 2 puff INHALATION Q6H PRN #18 g 03/30/20 05/27/20 Rx aerosol inhaler auto-pap #1 ea 03/30/20 03/30/20 History fluoxetine 40 mg capsule 80 mg PO QAM #180 cap 03/30/20 05/27/20 Rx clobetasol 0.05 % scalp solution 1 applic TOPICAL QAM AND QPM #50 ml 05/12/20 05/27/20 Rx Allergies Allergy/AdvReac Type Severity Reaction Status Date / Time fish derived AdvReac Intermediate Vomiting, Verified 06/21/20 19:34 rash, swelling Physical Examination Vital Signs Vital signs: Temp Pulse Resp BP Pulse Ox 100.5 F H 81 21 114/78 94 06/21/20 21:18 06/21/20 20:31 06/21/20 20:31 06/21/20 20:31 06/21/20 20:31 Results Lab Results Result Diagrams: 06/21/20 19:30 06/21/20 19:30 Lab results: Most recent lab results Calcium 9.0 mg/dL (8.6-10.4) 06/21/20 19:30 A/P Time Spent With Patient Time: Total time spent is greater than 50% in coordination of care (as documented) at patient's floor/unit and/or counseling patient:
--- NOTE | 2020-06-21 21:48 | Internal Med History&Physical ---
HPI History of Present Illness Patient information: Note initiated : 06/21/20 at 9:44 pm Service Date, if different from initiated Date: [] Patient: Alisson Gutierrez a 64 y/o F admitted on for alt loc. Chief Complaint: [] History of present illness: Ms. Gutierrez is a 64 year old F Ms. Gutierrez is a 64 year old F Presents the ED at the request of her because she has had fevers been a little shaky, mental little altered mentation. Patient states that the past few days she is had some fevers been weaker had some nausea. And she says her is concerned about her because mentally she seemed off. Has mild headache. Denies chest pain. She admits to dysuria dark urine and malodorous urine. She had a cough which is mildly productive past couple days. The test in the ED was negative. She does have COPD and follows with Dr. Vaughan. Lactate was within normal limits. Her leukocyte count was mildly elevated. Urinalysis consistent with infection. Review of Systems: Pertinent positives as above. Denies vomiting/chest or abdominal pain/diarrhea. Remaining 10 point review of system reviewed negative PFSH PFSH All Active Problems (Updated 06/21/20 @ 21:23 by Cyril Villela MD) Urinary tract infection (Acute) Sepsis (Acute) Scaly patch rash (Acute) Sleep apnea (Acute) Thoracic back pain (Acute) Macromastia (Acute) Vitamin B12 deficiency (Acute) COPD with exacerbation (Acute) Dyspnea (Acute) Gastroenteritis (Acute) Nausea and vomiting in adult (Acute) UTI (urinary tract infection) (Acute) Nocturnal hypoxia (Chronic) Witnessed apneic spells (Chronic) Hypersomnia (Chronic) GERD (gastroesophageal reflux disease) (Chronic) Tobacco use (Chronic) COPD (chronic obstructive pulmonary disease) (Chronic) Obesity (BMI 30.0-34.9) (Chronic) Hyperlipidemia (Chronic) Hypertension, essential (Chronic ~1994) Chronic knee pain (Chronic) Anxiety (Chronic ~1994) Arthritis (Chronic ~1989) Asthma (Chronic ~1973) Depression (Chronic ~1979) Insomnia (Chronic ~2013) Joint pain (Chronic ~1979) Bowel disease (Chronic) Degenerative lumbar disc (Chronic ~1979) Medical History (Updated 06/21/20 @ 21:23 by Cyril Villela MD) Acid reflux (Resolved ~2009) Acute exacerbation of chronic obstructive airways disease (Resolved) Acute exacerbation of chronic obstructive airways disease (Resolved) Acute seborrheic dermatitis (Inactive) Anemia (Resolved ~2014) Anxiety (Chronic ~1994) Arthritis (Chronic ~1989) Asthma (Chronic ~1973) Bowel disease (Chronic) Chronic knee pain (Chronic) COPD (chronic obstructive pulmonary disease) (Chronic) Degenerative lumbar disc (Chronic ~1979) Depression (Chronic ~1979) Elevated liver enzymes (Resolved) GERD (gastroesophageal reflux disease) (Chronic) History of pneumonia (Resolved) Hyperlipidemia (Chronic) Hypersomnia (Chronic) Hypertension, essential (Chronic ~1994) Insomnia (Chronic ~2013) Joint pain (Chronic ~1979) Left knee pain (Resolved) Macromastia (Acute) Nocturnal hypoxia (Chronic) Obesity (BMI 30.0-34.9) (Chronic) Scaly patch rash (Acute) Sleep apnea (Acute) Thoracic back pain (Acute) Tobacco use (Chronic) Witnessed apneic spells (Chronic) Surgical History H/O colonoscopy (Chronic ~2015) 2015 repeat due H/O total hysterectomy (Chronic ~1989) History of lumpectomy of left breast (Chronic ~1995) Tumor removed History of surgery (Chronic ~1971) Tumor removed from left leg Hx of appendectomy (Chronic ~1981) Family History Brother Arthritis Diabetes Brothers Grandfather Arthritis Maternal Grandmother Cancer Maternal Mother Lung cancer Father Heart attack Daughter Heart attack Seizures Sister Stroke Other Fall Social History (Updated 05/03/20 @ 09:24 by Rachell Grant CMA) marital status: other: Children-3 smoking status: Former smoker smoking status start date: 10/30/71 alcohol intake frequency: does not drink substance use type: does not use MEDS/ALLERGIES Home Medications and Allergies Home Medications Medication Instructions Recorded Confirmed Type omeprazole 20 mg capsule,delayed 20 mg PO QDAY 04/15/19 05/27/20 History release ondansetron 4 mg SL Q6HP PRN #20 tab 01/07/20 05/27/20 Rx budesonide-formoterol HFA 160 2 puff INHALATION Q12H #10.2 g 01/15/20 05/27/20 Rx mcg-4.5 mcg/actuation aerosol inhaler hydrocodone 5 mg-acetaminophen 325 1 tab PO TID PRN #90 tab 02/02/20 05/27/20 Rx mg tablet ipratropium 0.5 mg-albuterol 3 mg 3 ml INHALATION QID PRN #180 ml 02/29/20 05/27/20 Rx (2.5 mg base)/3 mL nebulization soln albuterol sulfate 90 mcg/actuation 2 puff INHALATION Q6H PRN #18 g 03/30/20 05/27/20 Rx aerosol inhaler auto-pap #1 ea 03/30/20 03/30/20 History fluoxetine 40 mg capsule 80 mg PO QAM #180 cap 03/30/20 05/27/20 Rx clobetasol 0.05 % scalp solution 1 applic TOPICAL QAM AND QPM #50 ml 05/12/20 05/27/20 Rx Allergies Allergy/AdvReac Type Severity Reaction Status Date / Time fish derived AdvReac Intermediate Vomiting, Verified 06/21/20 19:34 rash, swelling EXAM Constitutional Vitals: Temp Pulse Resp BP Pulse Ox 100.5 F H 81 21 114/78 94 06/21/20 21:18 06/21/20 20:31 06/21/20 20:31 06/21/20 20:31 06/21/20 20:31 Exam: General: Awake, No acute Distress Eyes/N/T: EOMI, PERRL, MM Head/Neck: neck supple, normocephalic atraumatic CV: RRR, No murmurs, normal s1/s2 Pulm: Clear b/l, no wheezing/rhonchi/rales Abd: soft, nontender, +BS x4 Ext: no clubbing/cyanosis/edema Neuro: no focal deficits, moves all extremities, CN 2-12 grossly intact, symmetrical strength b/l upper/lower, sensations intact b/l upper/lower. Answers questions appropriately but slow to answer some questions and had to repeat questions several times. Skin: warm/dry DATA Data Completed and Pending Labs: Labs from last 24 hours 06/21/20 06/21/20 06/21/20 19:45 19:40 19:30 WBC RBC Hgb Hct MCV MCH MCHC RDW Plt Count MPV Neut % (Auto) Lymph % (Auto) Terry % (Auto) Eos % (Auto) Baso % (Auto) Lymph # (Auto) [place] # (Auto) Eos # (Auto) Baso # (Auto) Absolute Neutrophils VBG Lactic Acid 1.3 Sodium Potassium Chloride Carbon Dioxide Anion Gap BUN Creatinine GFR Calculation Glucose Calcium Total Bilirubin AST ALT Alkaline Phosphatase Troponin T Total Protein Albumin Globulin Albumin/Globulin Ratio Urine Color [place] Urine Appearance Hazy A Urine pH 5.0 Ur Specific [place] 1.021 Urine Protein Negative Urine Glucose (UA) Negative Urine Ketones Negative Urine Occult Blood 0.03 Urine Nitrate Pos A Urine Bilirubin Negative Urine Urobilinogen 4.0 A Ur Leukocyte Esterase 75 A Urine RBC 1 Urine WBC 44 H Ur Squamous Epith Cells 1 Urine Bacteria Many A Urine Mucus Many A Ur Culture Indicated? yes SARS-CoV-2 (PCR) Negative 06/21/20 06/21/20 06/21/20 19:30 19:30 19:30 WBC 11.9 H RBC 5.38 H Hgb 12.1 Hct 39.1 MCV 72.7 L MCH 22.5 L MCHC 30.9 L RDW 14.9 H Plt Count 304 MPV 10.7 H Neut % (Auto) 76.5 Lymph % (Auto) 14.7 L Terry % (Auto) 7.9 Eos % (Auto) 0.6 Baso % (Auto) 0.3 Lymph # (Auto) 1.74 Terry # (Auto) 0.94 H Eos # (Auto) 0.07 Baso # (Auto) 0.03 Absolute Neutrophils 9.09 H VBG Lactic Acid Sodium 137 Potassium 3.4 Chloride 99 Carbon Dioxide 23 Anion Gap 15.0 BUN 9 Creatinine 0.8 GFR Calculation 78 Glucose 102 Calcium 9.0 Total Bilirubin 0.5 AST 27 ALT 41 H Alkaline Phosphatase 117 Troponin T < 0.01 Total Protein 6.7 Albumin 4.1 Globulin 2.6 Albumin/Globulin Ratio 1.6 Urine Color Urine Appearance Urine pH Ur Specific [place] Urine Protein Urine Glucose (UA) Urine Ketones Urine Occult Blood Urine Nitrate Urine Bilirubin Urine Urobilinogen Ur Leukocyte Esterase Urine RBC Urine WBC Ur Squamous Epith Cells Urine Bacteria Urine Mucus Ur Culture Indicated? SARS-CoV-2 (PCR) A/P Narrative A/P Narrative: A: *Sepsis: *UTI: *Encephalopathy, mild: 2/2 above *AECOPD: *JURGEN with CPAP: *COPD (not on home O2): *Depression: *Chronic pain: *GERD: *? HTN: *Microcytosis: * P: -Rocephin, pending UC -IVF tonight -steroids, nebs, IS/Acapella -home cpap -cont SSRI -hold home narcotics tonight -iron labs - -PT/OT -ppx: Lovenox DNR Time Spent With Patient Time: Total time spent is greater than 50% in coordination of care (as documented) at patient's floor/unit and/or counseling patient:
[2020-06-21] MEDS ORDERED: SENNOSIDES 1 TABLET PO PRN (22:38)
[2020-06-21] MEDS ORDERED: MAGNESIUM SULFATE 2 GM/50 ML BAG IV PRN (22:38)
[2020-06-21] MEDS ORDERED: methylPREDNISolone SOD SUCC 125 MG/2 ML VIAL IV ONE (22:38)
[2020-06-21] MEDS ORDERED: ACETAMINOPHEN 325 MG TABLET PO PRN (22:38)
[2020-06-21] MEDS ORDERED: POTASSIUM CHLORIDE 40 MEQ in DEXTROSE 5% IN WATER 500 ML IV PRN (22:38)
[2020-06-21] MEDS ORDERED: POTASSIUM CHLORIDE 20 MEQ TABLET PO PRN ×2 (22:38)
[2020-06-21] MEDS ORDERED: IPRATROPIUM/ALBUTEROL 3 ML AMPUL.NEB NEB PRN (22:38)
[2020-06-21] MEDS ORDERED: LACTULOSE 20 GM/30 ML ORAL.SOL PO PRN (22:38)
[2020-06-21] MEDS ORDERED: POLYETHYLENE GLYCOL 3350 17 GM PACKET PO PRN (22:38)
[2020-06-21] MEDS ORDERED: ONDANSETRON 4 MG/2 ML VIAL IV PRN (22:38)
[2020-06-21] MEDS ORDERED: cefTRIAXone 1 GM VIAL ONE (22:49)
[2020-06-21] MEDS: methylPREDNISolone SOD SUCC 125 MG/2 ML VIAL ONE ×2 (22:49→22:50)
[2020-06-21] MEDS: 0.9 % SODIUM CHLORIDE 10 ML SYRINGE IV SCH (22:52)
[2020-06-21] MEDS: cefTRIAXone 2 GM in DEXTROSE 5% IN WATER 50 ML IV SCH (23:09)
[2020-06-21] MEDS: IPRATROPIUM/ALBUTEROL 3 ML AMPUL.NEB NEB SCH (23:10)
[2020-06-21] MEDS ORDERED: IPRATROPIUM/ALBUTEROL 3 ML AMPUL.NEB NEB ONE (23:10)
[2020-06-22] MEDS: 0.9 % SODIUM CHLORIDE 10 ML SYRINGE IV SCH ×4 (03:19→21:30)
--- NOTE | 2020-06-22 05:52 | XRay Report ---
INDICATION: sob. Fever. Smoking history TECHNIQUE: AP portable semiupright chest x-ray COMPARISON: Previous examination dated 11/14/2019 FINDINGS: Lungs:No definite pulmonary parenchymal infiltrate. No parenchymal mass. Heart, vascular:No significant cardiomegaly. Pulmonary vascularity is normal. No pulmonary edema or pulmonary congestion Mediastinum, sea:No mediastinal widening. No hilar mass Pleura:No pleural fluid. No pleural-based mass or calcification Skeletal:Negative. IMPRESSION: 1. No pulmonary parenchymal infiltrate or mass. No focal abnormality 2. No significant interval change since 11/14/2019 Interpreted and Authenticated by: Sergio Dominguez 06/22/20
[2020-06-22 06:22] LABS: Basophils # (Auto) 0.01 K/mcL (0.00-0.20); Basophils % (Auto) 0.1 % (0.0-2.0); Eosinophils # (Auto) 0 K/mcL (0.00-0.70); Eosinophils % (Auto) 0 % (0.0-7.0); Hematocrit 38.2 % (36.0-48.0); Hemoglobin 11.8 g/dL (12.0-15.0); Lymphocytes # (Auto) 0.62 K/mcL (1.50-4.80); Lymphocytes % (Auto) 6.3 % (15.0-49.0); Mean Cell Volume 72.6 fL (80.0-100.0); Mean Corpuscular HGB Conc 30.9 g/dL (31.0-36.0); Mean Platelet Volume 10.3 fL (7.4-10.4); Monocytes # (Auto) 0.15 K/mcL (0.10-0.90); Monocytes % (Auto) 1.5 % (1.0-12.0); Neutrophils % (Auto) 92.1 % (38.0-78.0); Platelet Count 310 K/mcL (140-440); RBC 5.26 M/mcL (4.00-5.20); Red Cell Distribution Width 14.8 % (11.5-14.5); WBC 9.8 K/mcL (4.5-11.0)
[2020-06-22] MEDS: IPRATROPIUM/ALBUTEROL 3 ML AMPUL.NEB NEB SCH ×3 (06:28→23:07)
[2020-06-22 07:17] LABS: ALT/SGPT 36 U/L (<40); AST/SGOT 23 U/L (<32); Albumin 3.8 gm/dL (3.2-5.2); Albumin/Globulin Ratio 1.2 (1.0-2.3); Alkaline Phosphatase 123 U/L (39-117); Bilirubin,Direct < 0.2 mg/dL (<0.3); Bilirubin,Total 0.4 mg/dL (0.1-1.0); Blood Urea Nitrogen 9 mg/dL (8-23); Calcium 9.1 mg/dL (8.6-10.4); Carbon Dioxide 26 mmol/L (22-30); Chloride 101 mmol/L (96-108); Globulin 3.1 gm/dL (2.2-3.7); Glomerular Filtration Rate 91; Glucose 158 mg/dL (70-105); Iron 17 ug/dL (37-145); Lactate Dehydrogenase 152 U/L (135-225); Phosphorous 2.9 mg/dL (2.5-4.5); TIBC Calculation 277 ug/dl (228-428); Transferrin % Saturation 6 % (15-50); Triglycerides 75 mg/dL (<150); Uric Acid 4.6 mg/dL (2.5-8.0)
[2020-06-22 07:23] LABS: Ferritin 164.3 ng/mL (30.0-400.0)
--- NOTE | 2020-06-22 07:42 | Internal Med Progress Note ---
SUBJECTIVE Subjective Patient information: Note initiated : 06/22/20 at 7:38 am Service Date, if different from initiated Date: [] Patient: Alisson Gutierrez 64 y/o F admitted on 06/21/20 for alt loc. Chief Complaint: [] Interval history: History of present illness: Ms. Gutierrez is a 64 year old F Ms. Gutierrez is a 64 year old F Presents the ED at the request of her because she has had fevers been a little shaky, mental little altered mentation. Patient states that the past few days she is had some fevers been weaker had some nausea. And she says her is concerned about her because mentally she seemed off. Has mild headache. Denies chest pain. She admits to dysuria dark urine and malodorous urine. She had a cough which is mildly productive past couple days. The test in the ED was negative. She does have COPD and follows with Dr. Vaughan. Lactate was within normal limits. Her leukocyte count was mildly elevated. Urinalysis consistent with infection. 06/22 Feeling better today. Feeling less foggy. Leukocytosis resolved. Awaiting urine culture. Review of Systems: denies headache/fever/chills/nausea/vomiting/chest or abdominal pain/cough/dyspnea/diarrhea. Otherwise see above. Constitutional Vitals: Vital Signs Temp Pulse Resp BP Pulse Ox 98.1 F 85 14 119/65 93 06/22/20 03:18 06/22/20 06:29 06/22/20 03:18 06/22/20 03:18 06/22/20 03:18 Period Temp Pulse Resp BP Sys/Tang Pulse Ox Last 24 Hr 98.1 F-100.5 F 70-88 14-26 103-135/53-90 91-96 Intake and Output 06/21/20 06/22/20 06/22/20 21:59 05:59 13:59 Intake Total 200 Balance 200 Weight 82.554 kg 82.554 kg Intake & Output: Intake & Output 06/21/20 06/22/20 06/22/20 21:59 05:59 13:59 Intake Total 200 Balance 200 Weight 82.554 kg 82.554 kg Intake: Oral 200 Other: # Voids 1 Exam: General: Awake, No acute Distress Eyes/N/T: EOMI, Head/Neck: neck supple, CV: RRR, No murmurs, Pulm: Clear b/l, no wheezing/rhonchi/rales Abd: soft, nontender, +BS x4 Ext: no clubbing/cyanosis/edema Neuro: Mentation improving . no focal deficits, moves all extremities Skin: warm/dry OBJ DATA Labs CBC & Chem 7: 06/22/20 05:17 06/22/20 05:17 Labs: Abnormal Lab Results 06/22/20 06/22/20 06/21/20 05:17 05:17 19:40 WBC RBC 5.26 H Hgb 11.8 L MCV 72.6 L MCH 22.4 L MCHC 30.9 L RDW 14.8 H MPV Neut % (Auto) 92.1 H Lymph % (Auto) 6.3 L Lymph # (Auto) 0.62 L [place] # (Auto) Absolute Neutrophils 8.99 H Glucose 158 H Iron 17 L Transferrin % Sat 6 L GGT 58 H ALT Alkaline Phosphatase 123 H Urine Appearance Hazy A Urine Nitrate Pos A Urine Urobilinogen 4.0 A Ur Leukocyte Esterase 75 A Urine WBC 44 H Urine Bacteria Many A Urine Mucus Many A 06/21/20 06/21/20 19:30 19:30 WBC 11.9 H RBC 5.38 H Hgb MCV 72.7 L MCH 22.5 L MCHC 30.9 L RDW 14.9 H MPV 10.7 H Neut % (Auto) Lymph % (Auto) 14.7 L Lymph # (Auto) [place] # (Auto) 0.94 H Absolute Neutrophils 9.09 H Glucose Iron Transferrin % Sat GGT ALT 41 H Alkaline Phosphatase Urine Appearance Urine Nitrate Urine Urobilinogen Ur Leukocyte Esterase Urine WBC Urine Bacteria Urine Mucus Meds: Medications Acetaminophen (Tylenol) 650 mg PO Q6HP PRN PRN Reason: PAIN/FEVER > 101 Albuterol/Ipratropium (Duoneb) 3 ml NEB Q4HP PRN PRN Reason: Shortness Of Breath Albuterol/Ipratropium (Duoneb) 3 ml NEB Q8H [facility] Last Admin: 06/22/20 06:28 Dose: 3 ml Documented by: Docusate Sodium (Colace) 100 mg PO BID [facility] Enoxaparin Sodium (Lovenox) 40 mg SQ DAILY [facility] Potassium Chloride 40 meq/ (Dextrose) 520 mls @ 130 mls/hr IV UD PRN PRN Reason: Potassium < 3 Magnesium Sulfate (Magnesium Sulfate) 2 gm in 50 mls @ 50 mls/hr IV UD PRN PRN Reason: Magnesium </= 1.6 Ceftriaxone Sodium 2 gm/ (Dextrose) 50 mls @ 100 mls/hr IV Q24H [facility]; Protocol Last Admin: 06/21/20 23:09 Dose: Not Given Documented by: Lactulose (Cephulac) 20 gm PO DAILYP PRN PRN Reason: Constipation Methylprednisolone Sodium Succinate (Solu-Medrol) 62.5 mg IV Q12 SARA Ondansetron HCl (Zofran) 4 mg IV Q4HP PRN PRN Reason: Nausea And Vomiting Polyethylene Glycol (Miralax) 17 gm PO DAILYP PRN PRN Reason: Constipation Potassium Chloride (Kdur) 40 meq PO UD PRN PRN Reason: Potssium is 3-3.5 Potassium Chloride (Kdur) 40 meq PO UD PRN PRN Reason: Potassium < 3 Senna (Senokot) 2 tab PO DAILYP PRN PRN Reason: Constipation Sodium Chloride (Saline Flush) 10 ml IV Q8 SARA Last Admin: 06/22/20 04:15 Dose: Not Given Documented by: A/P Narrative A/P Narrative: A: *Sepsis: -Tmax 100.5, leukocytosis resolved *UTI: *Encephalopathy, mild: 2/2 above, improving *AECOPD: *JURGEN with CPAP: *COPD (not on home O2): *Depression: *Chronic pain: *GERD: *?HTN: old notes mention ACEI, not on current list P: -Rocephin, pending UC -steroids, nebs, IS/Acapella -home cpap -cont SSRI -iron labs - -PT/OT -ppx: Lovenox DNR Time Spent With Patient Time: Total time spent is greater than 50% in coordination of care (as documented) at patient's floor/unit and/or counseling patient: QUALITY VTE Deep Vein Thrombosis/Pulmonary Embolism Present on Admission: No
[2020-06-22] MEDS: DOCUSATE SODIUM 100 MG CAPSULE PO SCH ×2 (08:47→21:29)
[2020-06-22] MEDS: ENOXAPARIN 40 MG/0.4 ML SYRINGE SQ SCH (08:48)
[2020-06-22] MEDS: methylPREDNISolone SOD SUCC 125 MG/2 ML VIAL IV SCH ×2 (08:48→21:29)
[2020-06-22] MEDS: cefTRIAXone 2 GM in DEXTROSE 5% IN WATER 50 ML IV SCH (14:07)
[2020-06-22] MEDS ORDERED: CALCIUM CARBONATE 500 MG TAB.CHEW CHEWED PRN (20:45)
[2020-06-22] MEDS: OMEPRAZOLE 20 MG CAPSULE PO SCH (21:29)
[2020-06-22] MEDS: MELATONIN 3 MG TABLET PO PRN (21:29)
[2020-06-23] MEDS: 0.9 % SODIUM CHLORIDE 10 ML SYRINGE IV SCH ×3 (05:44→20:59)
[2020-06-23] MEDS: IPRATROPIUM/ALBUTEROL 3 ML AMPUL.NEB NEB SCH ×3 (06:45→22:16)
--- NOTE | 2020-06-23 07:17 | Internal Med Progress Note ---
SUBJECTIVE Subjective Patient information: Note initiated : 06/23/20 at 7:14 am Service Date, if different from initiated Date: [] Patient: Alisson Gutierrez 64 y/o F admitted on 06/21/20 for alt loc. Chief Complaint: [] Interval history: History of present illness: Ms. Gutierrez is a 64 year old F Ms. Gutierrez is a 64 year old F Presents the ED at the request of her because she has had fevers been a little shaky, mental little altered mentation. Patient states that the past few days she is had some fevers been weaker had some nausea. And she says her is concerned about her because mentally she seemed off. Has mild headache. Denies chest pain. She admits to dysuria dark urine and malodorous urine. She had a cough which is mildly productive past couple days. The test in the ED was negative. She does have COPD and follows with Dr. Vaughan. Lactate was within normal limits. Her leukocyte count was mildly elevated. Urinalysis consistent with infection. 06/22 Feeling better today. Feeling less foggy. Leukocytosis resolved. Awaiting urine culture. 06/23 Doing well. No new complaints. No overnight events. Urine culture with gram- negative bacillus awaiting final education. Review of Systems: denies headache/fever/chills/nausea/vomiting/chest or abdominal pain/cough/dyspnea/diarrhea. Otherwise see above. Constitutional Vitals: Vital Signs Temp Pulse Resp BP Pulse Ox 97.6 F 72 16 109/55 91 06/23/20 04:44 06/23/20 06:45 06/23/20 06:45 06/23/20 04:44 06/23/20 04:44 Period Temp Pulse Resp BP Sys/Tang Pulse Ox Last 24 Hr 97.2 F-98.6 F 16-85 14-80 109-131/55-71 90-94 Intake and Output 06/22/20 06/23/20 06/23/20 21:59 05:59 13:59 Intake Total 290 100 Output Total 150 250 Balance 140 -150 Weight 81.919 kg Intake & Output: Intake & Output 06/22/20 06/23/20 06/23/20 21:59 05:59 13:59 Intake Total 290 100 Output Total 150 250 Balance 140 -150 Weight 81.919 kg Intake: IV 50 Rocephin 2 gm In Dextrose 5% in 50 Water 50 ml @ 100 mls/hr IV Q24H [facility] Rx#:[id number] Oral 240 100 Output: Void Amount 150 250 Other: Meal Dinner Percent of Meal Consumed 100% Urine Appearance Clear Clear Urine Color Dark Yellow Dark Yellow Stool Size Small Stool Color Brown Stool Consistency Normal for Patient Soft # Voids 1 # Bowel Movements 1 Exam: General: Awake, No acute Distress Eyes/N/T: EOMI, Head/Neck: neck supple, CV: RRR, No murmurs, Pulm: Clear b/l, no wheezing/rhonchi/rales Abd: soft, nontender, +BS x4 Ext: no clubbing/cyanosis/edema Neuro: Mentation improving . no focal deficits, moves all extremities Skin: warm/dry OBJ DATA Labs CBC & Chem 7: 06/22/20 05:17 06/22/20 05:17 Labs: Abnormal Lab Results 06/22/20 06/22/20 06/21/20 05:17 05:17 19:40 WBC RBC 5.26 H Hgb 11.8 L MCV 72.6 L MCH 22.4 L MCHC 30.9 L RDW 14.8 H MPV Neut % (Auto) 92.1 H Lymph % (Auto) 6.3 L Lymph # (Auto) 0.62 L [place] # (Auto) Absolute Neutrophils 8.99 H Glucose 158 H Iron 17 L Transferrin % Sat 6 L GGT 58 H ALT Alkaline Phosphatase 123 H Urine Appearance Hazy A Urine Nitrate Pos A Urine Urobilinogen 4.0 A Ur Leukocyte Esterase 75 A Urine WBC 44 H Urine Bacteria Many A Urine Mucus Many A 06/21/20 06/21/20 19:30 19:30 WBC 11.9 H RBC 5.38 H Hgb MCV 72.7 L MCH 22.5 L MCHC 30.9 L RDW 14.9 H MPV 10.7 H Neut % (Auto) Lymph % (Auto) 14.7 L Lymph # (Auto) [place] # (Auto) 0.94 H Absolute Neutrophils 9.09 H Glucose Iron Transferrin % Sat GGT ALT 41 H Alkaline Phosphatase Urine Appearance Urine Nitrate Urine Urobilinogen Ur Leukocyte Esterase Urine WBC Urine Bacteria Urine Mucus Meds: Medications Acetaminophen (Tylenol) 650 mg PO Q6HP PRN PRN Reason: PAIN/FEVER > 101 Albuterol/Ipratropium (Duoneb) 3 ml NEB Q4HP PRN PRN Reason: Shortness Of Breath Albuterol/Ipratropium (Duoneb) 3 ml NEB Q8H [facility] Last Admin: 06/23/20 06:45 Dose: 3 ml Documented by: Calcium Carbonate/Glycine (Tums) 500 mg CHEWED Q4HP PRN PRN Reason: Dyspepsia Last Admin: 06/22/20 21:29 Dose: 500 mg Documented by: Docusate Sodium (Colace) 100 mg PO BID [facility] Last Admin: 06/22/20 21:29 Dose: 100 mg Documented by: Enoxaparin Sodium (Lovenox) 40 mg SQ DAILY [facility] Last Admin: 06/22/20 08:48 Dose: 40 mg Documented by: Potassium Chloride 40 meq/ (Dextrose) 520 mls @ 130 mls/hr IV UD PRN PRN Reason: Potassium < 3 Magnesium Sulfate (Magnesium Sulfate) 2 gm in 50 mls @ 50 mls/hr IV UD PRN PRN Reason: Magnesium </= 1.6 Ceftriaxone Sodium 2 gm/ (Dextrose) 50 mls @ 100 mls/hr IV Q24H [facility]; Protocol Last Infusion: 06/22/20 14:40 Dose: Infused Documented by: Lactulose (Cephulac) 20 gm PO DAILYP PRN PRN Reason: Constipation Melatonin (Melatonin 3mg Tablet) 3 mg PO HSP PRN PRN Reason: Insomnia Last Admin: 06/22/20 21:29 Dose: 3 mg Documented by: Methylprednisolone Sodium Succinate (Solu-Medrol) 62.5 mg IV Q12 [facility] Last Admin: 06/22/20 21:29 Dose: 62.5 mg Documented by: Omeprazole (Prilosec) 20 mg PO BIDAC [facility] Last Admin: 06/22/20 21:29 Dose: 20 mg Documented by: Ondansetron HCl (Zofran) 4 mg IV Q4HP PRN PRN Reason: Nausea And Vomiting Polyethylene Glycol (Miralax) 17 gm PO DAILYP PRN PRN Reason: Constipation Potassium Chloride (Kdur) 40 meq PO UD PRN PRN Reason: Potssium is 3-3.5 Potassium Chloride (Kdur) 40 meq PO UD PRN PRN Reason: Potassium < 3 Senna (Senokot) 2 tab PO DAILYP PRN PRN Reason: Constipation Sodium Chloride (Saline Flush) 10 ml IV Q8 [facility] Last Admin: 06/23/20 05:44 Dose: 10 ml Documented by: A/P Narrative A/P Narrative: A: *Sepsis: improved -afebrile o/n, leukocytosis resolved *UTI (GNB): *Encephalopathy, mild: 2/2 above, improving *AECOPD: *JURGEN with CPAP: *COPD (not on home O2): *Depression: *Chronic pain: *GERD: *?HTN: old notes mention ACEI, not on current list P: -Rocephin, pending UC -steroids(wean), nebs, IS/Acapella -home cpap -cont SSRI -iron labs - -PT/OT -ppx: Lovenox DNR Time Spent With Patient Time: Total time spent is greater than 50% in coordination of care (as documented) at patient's floor/unit and/or counseling patient: QUALITY VTE Deep Vein Thrombosis/Pulmonary Embolism Present on Admission: No
[2020-06-23] MEDS: OMEPRAZOLE 20 MG CAPSULE PO SCH ×2 (07:34→16:22)
[2020-06-23] MEDS: predniSONE 20 MG TABLET PO SCH (07:34)
[2020-06-23] MEDS: DOCUSATE SODIUM 100 MG CAPSULE PO SCH ×2 (08:43→20:59)
[2020-06-23] MEDS: ENOXAPARIN 40 MG/0.4 ML SYRINGE SQ SCH (08:43)
[2020-06-23] MEDS: cefTRIAXone 2 GM in DEXTROSE 5% IN WATER 50 ML IV SCH (08:48)
[2020-06-23] MEDS: MELATONIN 3 MG TABLET PO PRN (22:15)
[2020-06-24] MEDS: 0.9 % SODIUM CHLORIDE 10 ML SYRINGE IV SCH (06:02)
[2020-06-24 06:35] LABS: Basophils # (Auto) 0.01 K/mcL (0.00-0.20); Basophils % (Auto) 0.1 % (0.0-2.0); Eosinophils # (Auto) 0.01 K/mcL (0.00-0.70); Eosinophils % (Auto) 0.1 % (0.0-7.0); Hematocrit 34.9 % (36.0-48.0); Hemoglobin 10.8 g/dL (12.0-15.0); Lymphocytes # (Auto) 3.37 K/mcL (1.50-4.80); Lymphocytes % (Auto) 28.5 % (15.0-49.0); Mean Cell Volume 72.4 fL (80.0-100.0); Mean Corpuscular HGB Conc 30.9 g/dL (31.0-36.0); Mean Platelet Volume 10.8 fL (7.4-10.4); Monocytes # (Auto) 0.85 K/mcL (0.10-0.90); Monocytes % (Auto) 7.2 % (1.0-12.0); Neutrophils % (Auto) 64.1 % (38.0-78.0); Platelet Count 325 K/mcL (140-440); RBC 4.82 M/mcL (4.00-5.20); Red Cell Distribution Width 14.8 % (11.5-14.5); WBC 11.8 K/mcL (4.5-11.0)
[2020-06-24] MEDS: IPRATROPIUM/ALBUTEROL 3 ML AMPUL.NEB NEB SCH (06:46)
[2020-06-24] MEDS: OMEPRAZOLE 20 MG CAPSULE PO SCH (07:55)
[2020-06-24] MEDS: predniSONE 20 MG TABLET PO SCH (07:55)
[2020-06-24] MEDS: ENOXAPARIN 40 MG/0.4 ML SYRINGE SQ SCH (07:55)
[2020-06-24] MEDS: DOCUSATE SODIUM 100 MG CAPSULE PO SCH (07:55)
[2020-06-24] MEDS: cefTRIAXone 2 GM in DEXTROSE 5% IN WATER 50 ML IV SCH (07:59)
[2020-06-24 08:45] LABS: ALT/SGPT 24 U/L (<40); AST/SGOT 18 U/L (<32); Albumin 3.5 gm/dL (3.2-5.2); Albumin/Globulin Ratio 1.5 (1.0-2.3); Alkaline Phosphatase 100 U/L (39-117); Bilirubin,Direct < 0.2 mg/dL (<0.3); Bilirubin,Total 0.3 mg/dL (0.1-1.0); Blood Urea Nitrogen 18 mg/dL (8-23); Calcium 8.9 mg/dL (8.6-10.4); Carbon Dioxide 27 mmol/L (22-30); Chloride 103 mmol/L (96-108); Globulin 2.4 gm/dL (2.2-3.7); Glomerular Filtration Rate 78; Glucose 97 mg/dL (70-105); Lactate Dehydrogenase 142 U/L (135-225); Phosphorous 3.6 mg/dL (2.5-4.5); Triglycerides 124 mg/dL (<150); Uric Acid 5.3 mg/dL (2.5-8.0)
--- NOTE | 2020-06-24 13:17 | Discharge Summary ---
Discharge Provider Provider Patient information: Note initiated : 06/24/20 at 1:14 pm Service Date, if different from initiated Date: [] Patient: Alisson Gutierrez 64 y/o F admitted on 06/21/20 for alt loc. Chief Complaint: Discharge diagnosis *Sepsis: improved -afebrile o/n, leukocytosis resolved *UTI (pansensitive E. coli on cultures. Discharging on additional 5 days oral ciprofloxacin. *Encephalopathy, mild: 2/2 above, improving *AECOPD: At baseline *JURGEN with CPAP: *COPD (not on home O2): *Depression: *Chronic pain: *GERD: *?HTN: Stable Brief hospital course History of present illness: Ms. Gutierrez is a 64 year old F Ms. Gutierrez is a 64 year old F Presents the ED at the request of her because she has had fevers been a little shaky, mental little altered mentation. Patient states that the past few days she is had some fevers been weaker had some nausea. And she says her is concerned about her because mentally she seemed off. Has mild headache. Denies chest pain. She admits to dysuria dark urine and malodorous urine. She had a cough which is mildly productive past couple days. The test in the ED was negative. She does have COPD and follows with Dr. Vaughan. Lactate was within normal limits. Her leukocyte count was mildly elevated. Urinalysis consistent with infection. 122 Feeling better today. Feeling less foggy. Leukocytosis resolved. Awaiting urine culture. 12 Doing well. No new complaints. No overnight events. Urine culture with gram- negative bacillus awaiting final education. 06/24-patient doing well. Pansensitive E. coli on cultures. Discharging home on additional 5 days antibiotic. No overnight events or concerns per staff. Date of admission: 06/21/20 22:29 Discharge date: 06/24/20 Primary care physician: Rocky Damon MD Consults: 06/21/20 Consult to Physician [CONS] Stat Comment: Consulting Provider: Rosalino Christianson Reason For Exam: Physician to Consult Discharge Meds Discharge Medications Home Medications omeprazole 20 mg capsule,delayed release 20 mg PO QDAY 04/15/19 [History Confirmed 06/21/20 Last Taken 09/07/19 08:00] budesonide-formoterol HFA 160 mcg-4.5 mcg/actuation aerosol inhaler 2 puff INHALATION Q12H #10.2 g 01/15/20 [Rx Confirmed 06/21/20 Last Taken Unknown] hydrocodone 5 mg-acetaminophen 325 mg tablet 1 tab PO TID PRN #90 tab 02/02/20 [Rx Confirmed 06/21/20 Last Taken Unknown] ipratropium 0.5 mg-albuterol 3 mg (2.5 mg base)/3 mL nebulization soln 3 ml INHALATION QID PRN #180 ml 02/29/20 [Rx Confirmed 06/21/20 Last Taken Unknown] albuterol sulfate 90 mcg/actuation aerosol inhaler 2 puff INHALATION Q6H PRN #18 g 03/30/20 [Rx Confirmed 06/21/20 Last Taken Unknown] fluoxetine 40 mg capsule 80 mg PO QAM #180 cap 03/30/20 [Rx Confirmed 06/21/20 Last Taken Unknown] levofloxacin 750 mg PO DAILY 5 Days #5 tab 06/24/20 [Rx Last Taken Unknown] COURSE Hospital Course Hospital course: . Discharge diagnosis: . Time Spent with Patient Time attestation: Total time spent providing and/or coordinating discharge services: EXAM Constitutional Vitals: Temp Pulse Resp BP Pulse Ox 98.7 F 73 16 131/67 93 06/24/20 06:31 06/24/20 06:47 06/24/20 06:47 06/24/20 06:31 06/24/20 06:31 Discharge Data Data Completed and Pending Labs on day of discharge: Labs from last 24 hours 06/24/20 06/24/20 05:19 05:19 WBC 11.8 H RBC 4.82 Hgb 10.8 L Hct 34.9 L MCV 72.4 L MCH 22.4 L MCHC 30.9 L RDW 14.8 H Plt Count 325 MPV 10.8 H Neut % (Auto) 64.1 Lymph % (Auto) 28.5 [place] % (Auto) 7.2 Eos % (Auto) 0.1 Baso % (Auto) 0.1 Lymph # (Auto) 3.37 [place] # (Auto) 0.85 Eos # (Auto) 0.01 Baso # (Auto) 0.01 Absolute Neutrophils 7.58 Sodium 141 Potassium 3.3 Chloride 103 Carbon Dioxide 27 Anion Gap 11.0 BUN 18 Creatinine 0.8 GFR Calculation 78 Glucose 97 Uric Acid 5.3 Calcium 8.9 Phosphorus 3.6 Magnesium 2.2 Total Bilirubin 0.3 Direct Bilirubin < 0.2 GGT 51 H AST 18 ALT 24 Alkaline Phosphatase 100 Lactate Dehydrogenase 142 Total Protein 5.9 Albumin 3.5 Globulin 2.4 Albumin/Globulin Ratio 1.5 Triglycerides 124 Preliminary micro results at discharge 06/21/20 20:17 Blood Culture - Preliminary Blood 06/21/20 20:07 Blood Culture - Preliminary Blood Discharge Plan Patient/Caregiver Discharge Instructions Activity: increase activity as tolerated Diet: Regular Diet Activity Restrictions/Additional Instructions: Continue antibiotic for additional 5 days Follow-up PCP in 5 to 7 days Return to ER if worsening fever chills abdominal pain noted Prescriptions: New levofloxacin [levofloxacin] 750 MG tablet 750 mg PO DAILY 5 Days Qty: 5 RF: 0 Continued budesonide-formoterol [Symbicort] 160-4.5 mcg/actuation HFA aerosol inhaler 2 puff INHALATION Q12H Qty: 10.2 RF: 11 ipratropium-albuterol 0.5 mg-3 mg(2.5 mg base)/3 mL solution for nebulization 3 ml INHALATION QID PRN (Reason: shortness of breath or wheezing) Qty: 180 RF: 3 fluoxetine [Prozac] 40 mg capsule 80 mg PO QAM Qty: 180 RF: 1 omeprazole 20 mg capsule,delayed release(DR/EC) 20 mg PO QDAY RF: 0 hydrocodone-acetaminophen 5-325 mg tablet 1 tab PO TID PRN (Reason: pain) Qty: 90 RF: 0 albuterol sulfate 90 mcg/actuation HFA aerosol inhaler 2 puff INHALATION Q6H PRN (Reason: shortness of breath or wheezing) Qty: 18 RF: 1 Discontinued ondansetron 4 MG tablet 4 mg SL Q6HP PRN (Reason: Nausea) Qty: 20 RF: 0 Follow Up Plan Follow up with: Rocky Damon MD [Primary Care Provider] - Patient Disposition: Home Health Service Rehab Potential: Good I certify that the patient requires SNF services: No Overall status at discharge: patient is back to baseline Discharge Orders: Discharge Order (Routine); Ordered 06/24/20 Ordered By: Lion WALKER VTE Deep Vein Thrombosis/Pulmonary Embolism Present on Admission: No
== END 2020-06-24 13:55 | disposition home health service (06) | DRG 871 ==
LOC: ED 19:26 → MEDSUR 22:29
PROVIDERS: ADMIT Internal Medicine; ATTEND Internal Medicine

== ENCOUNTER 2021-11-21 14:53 | Inpatient (IN) ==
--- NOTE | 2021-11-21 15:01 | Emergency Department Note ---
HPI General Chief complaint: Shortness of Breath/Dyspnea Stated complaint: SOB Time Seen by Provider: 11/21/21 15:01 Source: patient Mode of arrival: wheelchair Limitations: no limitations History of Present Illness HPI Narrative: 66-year-old female with past medical history of COPD presenting with shortness of breath and cough. Patient states since yesterday she has had worsening shortness of breath. She states today she used 3 nebulizer treatments with minimal improvement. She also endorses a cough productive of clear sputum. No fever, chest pain, leg swelling, or vomiting. Denies any prior cardiac history. Does not wear oxygen at home. Unknown trigger for her COPD exacerbation. Denies sick contacts. Related Data Home Medications Medication Instructions Recorded Confirmed albuterol sulfate 90 mcg/actuation 2 puff INHALATION Q6HP PRN 08/23/20 11/09/21 aerosol inhaler Previous Rx's Medication Instructions Recorded budesonide-formoterol HFA 160 2 puff INHALATION Q12H #10.2 g 04/06/21 mcg-4.5 mcg/actuation aerosol inhaler (Symbicort) hydrocodone 5 mg-acetaminophen 325 1 tab PO TID PRN 14 Days #42 tab 06/05/21 mg tablet nebulizer accessories (Adult #1 ea 08/03/21 Aerosol Mask) estradiol 1 mg tablet 1 mg PO QDAY #30 tab 09/20/21 omeprazole 40 mg capsule,delayed 40 mg PO QAM #30 cap 09/20/21 release ipratropium 0.5 mg-albuterol 3 mg 3 ml INHALATION TID #270 ml 09/28/21 (2.5 mg base)/3 mL nebulization soln Allergies Allergy/AdvReac Type Severity Reaction Status Date / Time acetaminophen [From Tylenol] AdvReac Intermediate Vomiting Verified 11/21/21 14:54 fish derived AdvReac Intermediate Vomiting, Verified 11/21/21 14:54 rash, swelling Review of Systems ROS ROS Narrative: Narrative: Constitutional: Denies fever or chills ENT ED: Denies throat pain Cardiovascular: Denies chest pain or palpitations Respiratory: Reports shortness of breath, cough and wheezes Gastrointestinal: Denies abdominal pain, nausea or vomiting Genitourinary: Denies dysuria or hematuria Musculoskeletal: Denies back pain or joint swelling Integumentary: Denies rash Neurological: Denies headache or weakness Psychiatric: Denies anxiety Endocrine: Denies fatigue Hematological/Lymphatic: Denies easy bruising PFSH Narrative Patient History Narrative: Narrative: Medical/Surgical/Family History All Active Problems (Updated 11/21/21 @ 17:03 by Alvarez Greene MD) COPD exacerbation (Acute) Medicare welcome visit (Acute) Snoring (Acute) Right upper quadrant pain (Acute) Acute and chronic cholecystitis (Acute) Recurrent biliary colic (Acute) Biliary colic (Acute) Total knee replacement status (Acute) Urinary incontinence in female (Acute) Iron deficiency (Acute) Fatigue (Acute) Urinary tract infection (Acute) Sepsis (Acute) Scaly patch rash (Acute) Sleep apnea (Chronic) Thoracic back pain (Acute) Macromastia (Acute) Vitamin B12 deficiency (Acute) COPD with exacerbation (Acute) Dyspnea (Acute) Gastroenteritis (Acute) Nausea and vomiting in adult (Acute) UTI (urinary tract infection) (Acute) Nocturnal hypoxia (Chronic) Witnessed apneic spells (Chronic) Hypersomnia (Chronic) GERD (gastroesophageal reflux disease) (Chronic) Tobacco use (Chronic) COPD (chronic obstructive pulmonary disease) (Chronic) Obesity (BMI 30.0-34.9) (Chronic) Hyperlipidemia (Chronic) Hypertension, essential (Chronic ~1994) Chronic knee pain (Chronic) Anxiety (Chronic ~1994) Arthritis (Chronic ~1989) Asthma (Chronic ~1973) Depression (Chronic ~1979) Insomnia (Chronic ~2013) Joint pain (Chronic ~1979) Bowel disease (Chronic) Degenerative lumbar disc (Chronic ~1979) Medical History Acid reflux (~2009) Acute exacerbation of chronic obstructive airways disease Acute exacerbation of chronic obstructive airways disease Acute seborrheic dermatitis Anemia (~2014) Anxiety (~1994) Arthritis (~1989) Asthma (~1973) Bowel disease Chronic knee pain COPD (chronic obstructive pulmonary disease) Degenerative lumbar disc (~1979) Depression (~1979) Elevated liver enzymes Fatigue GERD (gastroesophageal reflux disease) History of pneumonia Hyperlipidemia Hypersomnia Hypertension, essential (~1994) Insomnia (~2013) Iron deficiency Joint pain (~1979) Left knee pain Macromastia Medicare welcome visit Nocturnal hypoxia Obesity (BMI 30.0-34.9) Right upper quadrant pain Scaly patch rash Sleep apnea Snoring Thoracic back pain Tobacco use Urinary incontinence in female Witnessed apneic spells Surgical History H/O colonoscopy (~2015) 2015 repeat due H/O total hysterectomy (~1989) History of lumpectomy of left breast (~1995) Tumor removed History of surgery (~1971) Tumor removed from left leg Hx of appendectomy (~1981) Family History Brother Arthritis Diabetes Brothers Grandfather Arthritis Maternal Grandmother Cancer Maternal Mother Lung cancer Father Heart attack Daughter Heart attack Seizures Sister Stroke Other Fall Social History Smoking Status: Current some day smoker Alcohol Intake Frequency: does not drink Substance Use: does not use Exam Narrative Narrative: Narrative: General Limitations: no limitations General appearance: Present alert and other (In moderate respiratory distress) Head Head: Present atraumatic and normocephalic Eye Eye: Present normal appearance and EOMI; Absent scleral icterus or conjunctival injection ENT ENT: Present normal oropharynx and mucous membranes moist Neck Neck: Present normal inspection, full ROM and trachea midline; Absent meningismus or lymphadenopathy Chest Chest: Present symmetric chest wall rise Respiratory Respiratory: Present respiratory distress, rales/crackles (Occasional coarse rales noted), wheezes (Inspiratory and expiratory wheezes present in all field s), accessory muscle use, prolonged expiratory phase and other (Tachypneic); Absent stridor or decreased breath sounds Cardiovascular Cardiovascular: Present regular rate and normal rhythm; Absent systolic murmur or diastolic murmur Adbominal Abdominal: Present soft; Absent distention, tenderness, guarding, rebound or rigidity Extremities Extremities: Present normal inspection; Absent pretibial edema Back Back: Present normal inspection Neurological Neurological: Present alert, oriented X3 and CN II-XII intact; Absent motor sensory deficit Psychiatric Psychiatric: Present normal affect and normal mood Skin Skin: Present warm (WNL) and dry Course Consultations Consultation #1: Dr. Christinason, hospitalist Time: 17:02 Vital Signs Vital signs: Vital Signs Temperature 98.8 F 11/21/21 14:54 Pulse Rate 84 11/21/21 14:54 Respiratory Rate 32 H 11/21/21 14:54 Blood Pressure 169/104 11/21/21 14:54 Pulse Oximetry (%) 97 11/21/21 14:54 Temperature 98.2 F 11/21/21 16:36 Pulse Rate 94 H 11/21/21 16:44 Respiratory Rate 22 11/21/21 16:44 Blood Pressure 142/116 11/21/21 16:31 Pulse Oximetry (%) 93 11/21/21 16:44 MDM MDM Narrative Medical decision making narrative: 66-year-old female presenting with shortness of breath and cough. She is satting 95% on room air but has significant tachypnea, accessory muscle use, and wheezes throughout both lungs. Hour-long albuterol neb and Solu-Medrol 125mg IV ordered. EKG shows sinus rhythm at with no ischemic changes. Will obtain labs including lactate, VBG, blood cultures, and chest x-ray. 1630: Patient's work of breathing has improved after the hour neb and Solu- Medrol however she still has diffuse wheezing in both lungs and is now hypoxic to 88% on room air. She was placed on 2 L via nasal cannula. Labs within normal limits, pH on VBG is 7.49, PCO2 is 35.5, and PO2 is 58. Lactate is normal. Chest x-ray shows chronic bronchitis without any focal infiltrate or evidence of pneumonia. COVID and influenza swabs are negative. Given her persistent wheezing and hypoxia on room air, will plan for admission for COPD exacerbation. 1702: I spoke with Dr. Christianson, hospitalist, who will accept the patient for admission. Lab Data Lab results reviewed: Yes I reviewed the patient's lab results. Result diagrams: 11/21/21 15:15 Labs: Lab Results 11/21/21 11/21/21 11/21/21 Range/Units 15:07 15:10 15:15 WBC (4.5-11.0) K/mcL RBC (3.59-5.38) M/mcL Hgb (11.2-15.7) g/dL Hct (34.1-44.9) % POC Hct 42.0 (36-48) MCV (80.0-100.0) fL MCH (26.0-34.0) pg MCHC (31.0-36.0) g/dL RDW (11.5-14.5) % Plt Count (140-440) K/mcL MPV (7.4-10.4) fL Neut % (Auto) (38.0-78.0) % Lymph % (Auto) (15.5-49.0) % [place] % (Auto) (1.0-12.0) % Eos % (Auto) (0.0-7.0) % Baso % (Auto) (0.0-2.0) % Lymph # (Auto) (1.50-4.80) K/mcL [place] # (Auto) (0.10-0.90) K/mcL Eos # (Auto) (0.00-0.70) K/mcL Baso # (Auto) (0.00-0.30) K/mcL Absolute Neutrophils (1.80-8.00) K/mcL POC VBG pH (7.32-7.42) POC VBG pCO2 at Temp (41-51) POC VBG pO2 (25-40) POC VBG HCO3 (24-28) POC VBG Total CO2 (25-29) POC Venous O2 Sat (40-70) POC VBG Base Excess (-2-2) POC Sodium 142 (133-145) POC Potassium 3.5 (3.3-5.1) POC Chloride 106 (96-108) POC Total CO2 25.0 (22-30) POC BUN 10 (6-20) POC Creatinine 0.7 (0.6-1.2) POC Glucose 94 (70-105) POC Venous Lactate (0.5-2) POC WB Ioniz Calcium 1.05 L (1.16-1.32) Procalcitonin 0.05 (<0.10) ng/mL POC Troponin I 0.09 H (0.02-0.08) 11/21/21 11/21/21 Range/Units 15:15 15:23 WBC 8.8 (4.5-11.0) K/mcL RBC 5.85 H (3.59-5.38) M/mcL Hgb 13.4 (11.2-15.7) g/dL Hct 44.4 (34.1-44.9) % POC Hct (36-48) MCV 75.9 L (80.0-100.0) fL MCH 22.9 L (26.0-34.0) pg MCHC 30.2 L (31.0-36.0) g/dL RDW 14.4 (11.5-14.5) % Plt Count 276 (140-440) K/mcL MPV 10.5 H (7.4-10.4) fL Neut % (Auto) 67.7 (38.0-78.0) % Lymph % (Auto) 20.7 (15.5-49.0) % [place] % (Auto) 7.3 (1.0-12.0) % Eos % (Auto) 3.7 (0.0-7.0) % Baso % (Auto) 0.6 (0.0-2.0) % Lymph # (Auto) 1.82 (1.50-4.80) K/mcL [place] # (Auto) 0.64 (0.10-0.90) K/mcL Eos # (Auto) 0.33 (0.00-0.70) K/mcL Baso # (Auto) 0.05 (0.00-0.30) K/mcL Absolute Neutrophils 5.97 (1.80-8.00) K/mcL POC VBG pH 7.49 H (7.32-7.42) POC VBG pCO2 at Temp 35.5 L (41-51) POC VBG pO2 58 H (25-40) POC VBG HCO3 26.9 (24-28) POC VBG Total CO2 28.0 (25-29) POC Venous O2 Sat 92.0 H (40-70) POC VBG Base Excess 3.0 H (-2-2) POC Sodium (133-145) POC Potassium (3.3-5.1) POC Chloride (96-108) POC Total CO2 (22-30) POC BUN (6-20) POC Creatinine (0.6-1.2) POC Glucose (70-105) POC Venous Lactate 1.5 (0.5-2) POC WB Ioniz Calcium (1.16-1.32) Procalcitonin (<0.10) ng/mL POC Troponin I (0.02-0.08) ED POC Tests ED POC Tests: MARY - Influenza A Negative MARY - Influenza B Negative MARY - SARS Antigen Negative Radiology Data Radiology results reviewed: Yes I reviewed the patient's radiology results. Radiology results narrative: Ordering Physician:Alvarez Greene M.D. Date of Service:11/21/21 Procedure(s):XR chest 1V portable CLINICAL INFORMATION: Cough and dyspnea COMPARISON: Chest CT 01/11/2020. TECHNIQUE: Portable FINDINGS: The heart size, mediastinum and pulmonary vessels are unremarkable. Lung volumes are elevated and there is mild wall thickening of the bronchi compatible with chronic bronchitis. Minimal scattered scarring in the periphery of both lungs is unchanged.. There are no effusions. The bones and soft tissues are within normal limits. IMPRESSION: Stable chronic bronchitis Interpreted and Authenticated by: Sergio Valdovinos 11/21/21 23 23 Activities Assistant: <Electronically signed by Sergio Valdovinos M.D. in [place]> 11/21/21 1525 EKG Data EKG #1: EKG attestation: Yes I reviewed and interpreted this EKG. and Yes There are no EKG findings of acute coronary syndrome EKG results narrative: Normal sinus rhythm at [address] elevation or depression. QRS is normal Interpretation: no acute changes Discharge Plan Patient/Caregiver Discharge Instructions Pt seen by PRODUCTION ADMINISTRATIVE ASSISTANT/PA only: No Clinical Impression: COPD exacerbation Patient Disposition: Xfer As Inpt ([facility]) Condition: Fair Follow up with: Rocky Damon MD [Primary Care Provider] - Prescriptions: No Action budesonide-formoterol [Symbicort] 160-4.5 mcg/actuation HFA aerosol inhaler 2 puff INHALATION Q12H Qty: 10.2 11RF (DME) Adult Aerosol Mask Misc See Rx Instructions .ROUTE .MEDSUPPLY Qty: 1 1RF Rx Instructions: Nebulizer tubing and mask omeprazole 40 mg capsule,delayed release(DR/EC) 40 mg PO QAM Qty: 30 5RF estradiol 1 mg tablet 1 mg PO QDAY Qty: 30 5RF Label Comments: Awaiting to hear from [facility] [place] pharmacy about refill. hydrocodone-acetaminophen 5-325 mg tablet 1 tab PO TID PRN (Reason: pain) 14 Days Qty: 42 0RF ipratropium-albuterol 0.5 mg-3 mg(2.5 mg base)/3 mL solution for nebulization 3 ml INHALATION TID Qty: 270 6RF albuterol sulfate 90 mcg/actuation HFA aerosol inhaler 2 puff INHALATION Q6HP PRN (Reason: shortness of breath or wheezing) 0RF
[2021-11-21] MEDS ORDERED: methylPREDNISolone SOD SUCC 125 MG/2 ML VIAL IV ONE (15:05)
[2021-11-21] MEDS ORDERED: ALBUTEROL SULFATE 5 MG/ML NEB SOLUTION BOTTLE NEB ONE (15:05)
[2021-11-21 15:28] LABS: POC Calcium, Ionized 1.05 (1.16-1.32); POC Creatinine 0.7 (0.6-1.2); POC Potassium 3.5 (3.3-5.1)
--- NOTE | 2021-11-21 15:29 | XRay Report ---
CLINICAL INFORMATION: Cough and dyspnea COMPARISON: Chest CT 01/11/2020. TECHNIQUE: Portable FINDINGS: The heart size, mediastinum and pulmonary vessels are unremarkable. Lung volumes are elevated and there is mild wall thickening of the bronchi compatible with chronic bronchitis. Minimal scattered scarring in the periphery of both lungs is unchanged.. There are no effusions. The bones and soft tissues are within normal limits. IMPRESSION: Stable chronic bronchitis Interpreted and Authenticated by: Sergio Valdovinos 11/21/21
[2021-11-21 16:07] LABS: Basophils # (Auto) 0.05 K/mcL (0.00-0.30); Basophils % (Auto) 0.6 % (0.0-2.0); Eosinophils # (Auto) 0.33 K/mcL (0.00-0.70); Eosinophils % (Auto) 3.7 % (0.0-7.0); Hematocrit 44.4 % (34.1-44.9); Hemoglobin 13.4 g/dL (11.2-15.7); Lymphocytes # (Auto) 1.82 K/mcL (1.50-4.80); Lymphocytes % (Auto) 20.7 % (15.5-49.0); Mean Cell Volume 75.9 fL (80.0-100.0); Mean Corpuscular HGB Conc 30.2 g/dL (31.0-36.0); Mean Platelet Volume 10.5 fL (7.4-10.4); Monocytes # (Auto) 0.64 K/mcL (0.10-0.90); Monocytes % (Auto) 7.3 % (1.0-12.0); Neutrophils % (Auto) 67.7 % (38.0-78.0); Platelet Count 276 K/mcL (140-440); RBC 5.85 M/mcL (3.59-5.38); Red Cell Distribution Width 14.4 % (11.5-14.5); WBC 8.8 K/mcL (4.5-11.0)
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
[2021-11-21] MEDS ORDERED: POLYETHYLENE GLYCOL 3350 17 GM PACKET PO PRN (18:31)
[2021-11-21] MEDS ORDERED: IPRATROPIUM/ALBUTEROL 3 ML AMPUL.NEB NEB PRN (18:31)
[2021-11-21] MEDS ORDERED: MAGNESIUM SULFATE 2 GM/50 ML BAG IV PRN (18:31)
[2021-11-21] MEDS ORDERED: ACETAMINOPHEN 325 MG TABLET PO PRN (18:31)
[2021-11-21] MEDS ORDERED: POTASSIUM CHLORIDE 20 MEQ TABLET PO PRN ×2 (18:31)
[2021-11-21] MEDS ORDERED: METOCLOPRAMIDE 10 MG/2 ML VIAL IV PRN (18:31)
[2021-11-21] MEDS ORDERED: SENNOSIDES 1 TABLET PO PRN (18:31)
[2021-11-21] MEDS ORDERED: POTASSIUM CHLORIDE 40 MEQ in DEXTROSE 5% IN WATER 500 ML IV PRN (18:31)
[2021-11-21] MEDS ORDERED: ONDANSETRON 4 MG/2 ML VIAL IV PRN (18:31)
[2021-11-21 19:15] LABS: Ferritin 53.8 ng/mL (30.0-400.0)
[2021-11-21] MEDS: IPRATROPIUM/ALBUTEROL 3 ML AMPUL.NEB NEB SCH (19:25)
[2021-11-21] MEDS: BUDESONIDE 0.5 MG/2 ML AMPUL.NEB NEB SCH (19:25)
[2021-11-21] MEDS: IRON POLYSACCHARIDE COMPLEX 150 MG CAPSULE PO SCH (19:28)
[2021-11-21] MEDS: AZITHROMYCIN 500 MG in DEXTROSE 5% IN WATER 250 ML IV SCH (20:16)
[2021-11-21] MEDS: 0.9 % SODIUM CHLORIDE 10 ML SYRINGE IV SCH (20:25)
[2021-11-21] MEDS: DOCUSATE SODIUM 100 MG CAPSULE PO SCH (20:59)
[2021-11-21] MEDS: methylPREDNISolone SOD SUCC 125 MG/2 ML VIAL IV SCH (21:46)
[2021-11-22] MEDS: IPRATROPIUM/ALBUTEROL 3 ML AMPUL.NEB NEB SCH ×4 (00:56→18:58)
[2021-11-22] MEDS: 0.9 % SODIUM CHLORIDE 10 ML SYRINGE IV SCH ×3 (05:10→23:15)
[2021-11-22 07:12] LABS: ALT/SGPT 9 U/L (<40); AST/SGOT 13 U/L (<32); Albumin/Globulin Ratio 1.4 (1.0-2.3); Alkaline Phosphatase 110 U/L (39-117); Bilirubin,Direct < 0.2 mg/dL (0-0.3); Bilirubin,Total 0.3 mg/dL (0.1-1.0); Blood Urea Nitrogen 11 mg/dL (8-23); Calcium 9.2 mg/dL (8.6-10.4); Carbon Dioxide 22 mmol/L (22-30); Chloride 102 mmol/L (96-108); Globulin 2.8 gm/dL (2.2-3.7); Glomerular Filtration Rate 95; Glucose 180 mg/dL (70-105); Lactate Dehydrogenase 143 U/L (135-225); Phosphorous 2.4 mg/dL (2.5-4.5); Triglycerides 48 mg/dL (<150); Uric Acid 5.2 mg/dL (2.5-8.0)
[2021-11-22] MEDS: BUDESONIDE 0.5 MG/2 ML AMPUL.NEB NEB SCH ×3 (08:02→19:01)
--- NOTE | 2021-11-22 08:33 | Internal Med Progress Note ---
SUBJECTIVE Subjective Patient information: Note initiated : 11/22/21 at 8:28 am Service Date, if different from initiated Date: [] Patient: Alisson Gutierrez 66 y/o F admitted on 11/21/21 for Shortness of breath. Chief Complaint: [] Interval history: History of present illness: Ms. Gutierrez is a 66 year old F Presents the ED with shortness of breath and cough. Patient has a history of COPD and is on inhalers but does not use home oxygen. She has a history of obstructive sleep apnea and was on a CPAP in the past but was lost phobic and did not tolerate it so she had to return the machine. She does have a sleep study coming up soon. Patient states that yesterday she did some cleaning in her house with bleach and vinegar and a strong fumes made her feel ill little lightheaded and nauseous dizzy and then she started developing some mild shortness of breath and mild cough. Earlier today she was in traffic stuck behind a diesel truck several times which meters symptoms even worse and she continued to have worsening shortness of breath and coughing. She is coughing up yellow sputum. She says her chest is tight. She was seen in the ED and had a chest x-ray that was unremarkable he is given heart nebulizers which helped her work of breathing and helped her feel a bit better but she was still hypoxic on room air. Lowest recorded oxygen is 87% on room air. Patient denies any fever chills. Also of note her grandson was over earlier today and does have a what appeared via upper respiratory tract infection. COVID screen and flu screen in the ED were negative. Procalcitonin and lactate were unremarkable in the ED. 11/22 Patient complains of cough and shortness of breath although she feels her shortness of breath this gradually improving. Respiratory viral panel negative. Iron deficiency anemia noted on labs. Constitutional Vitals: Vital Signs Temp Pulse Resp BP Pulse Ox 97.4 F 87 20 122/60 94 11/22/21 04:00 11/22/21 08:06 11/22/21 08:06 11/22/21 04:00 11/22/21 08:06 Period Temp Pulse Resp BP Sys/Tang Pulse Ox Last 24 Hr 97.2 F-98.8 F 74-98 16-32 117-169/60-116 87-98 Intake and Output 11/21/21 11/22/21 11/22/21 21:59 05:59 13:59 Intake Total 250 480 Output Total 775 Balance 250 -295 Weight 76.289 kg Intake & Output: Intake & Output 11/21/21 11/22/21 11/22/21 21:59 05:59 13:59 Intake Total 250 480 Output Total 775 Balance 250 -295 Weight 76.289 kg Intake: IV 250 Zithromax 500 mg In Dextrose 5% 250 in Water 250 ml @ 250 mls/hr IV Q24H [facility] Rx#:[id number] Oral 480 Output: Void Amount 775 Other: Urine Appearance Clear Urine Color Bright Yellow Urine Odor Normal Exam: General: Alert, Awake, No acute Distress, obese Eyes/N/T: EOMI, Head/Neck: neck supple, CV: RRR, No murmurs, Pulm: rhonchi/wheezing b/l Abd: soft, nontender, +BS x4 Ext: no clubbing/cyanosis/edema Neuro: Alert, no focal deficits, moves all extremities, Skin: warm/dry OBJ DATA Labs CBC & Chem 7: 11/21/21 15:15 11/22/21 05:25 Labs: Abnormal Lab Results 11/22/21 11/21/21 11/21/21 05:25 16:33 15:23 RBC MCV MCH MCHC MPV POC VBG pH 7.49 H POC VBG pCO2 at Temp 35.5 L POC VBG pO2 58 H POC Venous O2 Sat 92.0 H POC VBG Base Excess 3.0 H Glucose 180 H POC WB Ioniz Calcium Phosphorus 2.4 L Iron 32 L Transferrin % Sat 9 L POC Troponin I 11/21/21 11/21/21 11/21/21 15:15 15:10 15:07 RBC 5.85 H MCV 75.9 L MCH 22.9 L MCHC 30.2 L MPV 10.5 H POC VBG pH POC VBG pCO2 at Temp POC VBG pO2 POC Venous O2 Sat POC VBG Base Excess Glucose POC WB Ioniz Calcium 1.05 L Phosphorus Iron Transferrin % Sat POC Troponin I 0.09 H Meds: Medications Acetaminophen (Acetaminophen 325 Mg Tablet) 650 mg PO Q6HP PRN; Protocol PRN Reason: Per Pain Protocol/Fever > 101 Albuterol/Ipratropium (Ipratropium/Albuterol 3 Ml Ampul.Neb) 3 ml NEB Q6HRT [facility] Last Admin: 11/22/21 08:02 Dose: 3 ml Documented by: Albuterol/Ipratropium (Ipratropium/Albuterol 3 Ml Ampul.Neb) 3 ml NEB Q4HP PRN PRN Reason: Shortness Of Breath Budesonide (Budesonide 0.5 Mg/2 Ml Ampul.Neb) 0.5 mg NEB Q12 [facility] Last Admin: 11/22/21 08:02 Dose: 0.5 mg Documented by: Docusate Sodium (Docusate Sodium 100 Mg Capsule) 100 mg PO BID [facility] Last Admin: 11/21/21 20:59 Dose: 100 mg Documented by: Potassium Chloride 40 meq/ (Dextrose) 520 mls @ 130 mls/hr IV UD PRN PRN Reason: Potassium < 3 Magnesium Sulfate (Magnesium Sulfate) 2 gm in 50 mls @ 50 mls/hr IV UD PRN PRN Reason: Magnesium </= 1.6 Azithromycin 500 mg/ Dextrose 250 mls @ 250 mls/hr IV Q24H [facility]; Protocol Stop: 11/23/21 19:30 Last Infusion: 11/21/21 21:20 Dose: Infused Documented by: Methylprednisolone Sodium Succinate (Methylprednisolone Sod Succ 125 Mg/2 Ml Vial) 62.5 mg IV Q12 [facility] Last Admin: 11/21/21 21:46 Dose: 62.5 mg Documented by: Metoclopramide HCl (Metoclopramide 10 Mg/2 Ml Vial) 10 mg IV Q6HP PRN PRN Reason: Nausea And Vomiting Omeprazole (Omeprazole 20 Mg Capsule) 40 mg PO ACB [facility] Ondansetron HCl (Ondansetron 4 Mg/2 Ml Vial) 4 mg IV Q4HP PRN PRN Reason: Nausea And Vomiting Polyethylene Glycol (Polyethylene Glycol 3350 17 Gm Packet) 17 gm PO DAILYP PRN PRN Reason: Constipation Polysaccharide Iron Complex (Iron Polysaccharide Complex 150 Mg Capsule) 150 mg PO DAILY [facility] Last Admin: 11/21/21 19:28 Dose: Not Given Documented by: Potassium Chloride (Potassium Chloride 20 Meq Tablet) 40 meq PO UD PRN PRN Reason: Potssium is 3-3.5 Potassium Chloride (Potassium Chloride 20 Meq Tablet) 40 meq PO UD PRN PRN Reason: Potassium < 3 Senna (Sennosides 1 Tablet) 2 tab PO DAILYP PRN PRN Reason: Constipation Sodium Chloride (0.9 % Sodium Chloride 10 Ml Syringe) 10 ml IV Q8 [facility] Last Admin: 11/22/21 05:10 Dose: 10 ml Documented by: A/P Narrative A/P Narrative: A: *AECOPD(not on home O2): -rvp neg *Acute hypoxic respiratory failure: -2L *h/o JURGEN: Intolerant to CPAP machine *Chronic pain: *GERD: *JOYCELYN: *Obesity: BMI 31 *Tobacco abuse: P: -Steroids (wean) -wean O2 as able -Nebs, IS/Acapella, RT -nebs -Empiric azithromycin -iron supp -pT/OT -ppx: Lovenox Time Spent With Patient Time: Total time spent is greater than 50% in coordination of care (as documented) at patient's floor/unit and/or counseling patient: Total time spent with greater than 50% in coordination of care (as documented) at patient's floor/unit and/or counseling patient:: 25 - 35 minutes
[2021-11-22] MEDS: DOCUSATE SODIUM 100 MG CAPSULE PO SCH ×3 (10:42→21:10)
[2021-11-22] MEDS: OMEPRAZOLE 20 MG CAPSULE PO SCH (10:42)
[2021-11-22] MEDS: IRON POLYSACCHARIDE COMPLEX 150 MG CAPSULE PO SCH (10:42)
[2021-11-22] MEDS: methylPREDNISolone SOD SUCC 125 MG/2 ML VIAL IV SCH ×2 (10:43→21:06)
--- NOTE | 2021-11-22 12:28 | Internal Med Progress Note ---
SUBJECTIVE Subjective Patient information: Note initiated : 11/22/21 at 12:27 pm Service Date, if different from initiated Date: [] Patient: Alisson Gutierrez a 66 y/o F admitted on 11/21/21 for Shortness of breath. Chief Complaint: [] Interval history: History of present illness: Ms. Gutierrez is a 66 year old F Presents the ED with shortness of breath and cough. Patient has a history of COPD and is on inhalers but does not use home oxygen. She has a history of obstructive sleep apnea and was on a CPAP in the past but was lost phobic and did not tolerate it so she had to return the machine. She does have a sleep study coming up soon. Patient states that yesterday she did some cleaning in her house with bleach and vinegar and a strong fumes made her feel ill little lightheaded and nauseous dizzy and then she started developing some mild shortness of breath and mild cough. Earlier today she was in traffic stuck behind a diesel truck several surendra es which meters symptoms even worse and she continued to have worsening shortness of breath and coughing. She is coughing up yellow sputum. She says her chest is tight. She was seen in the ED and had a chest x-ray that was unremarkable he is given heart nebulizers which helped her work of breathing and helped her feel a bit better but she was still hypoxic on room air. Lowest recorded oxygen is 87% on room air. Patient denies any fever chills. Also of note her grandson was over earlier today and does have a what appeared via upper respiratory tract infection. COVID screen and flu screen in the ED were negative. Procalcitonin and lactate were unremarkable in the ED. 11/22 Patient complains of cough and shortness of breath although she feels her shortness of breath this gradually improving. Respiratory viral panel negative. Iron deficiency anemia noted on labs. 11/23 Physical exam Head: Atraumatic, normal inspection. Eyes: normal appearance, no scleral icterus. Neck: full ROM Respiratory: no respiratory distress. Cardiovascular: normal rate and rhythm, S1, S2. GI/Abdominal: soft, nontender, no guarding. Extremities: full range of motion, nontender. Neurological: CN II-XII intact, intact motor, intact sensation. Psychiatric: normal mood. Skin: warm, normal color Constitutional Vitals: Vital Signs Temp Pulse Resp BP Pulse Ox 97.6 F 87 20 125/66 94 11/22/21 08:00 11/22/21 08:06 11/22/21 08:06 11/22/21 08:00 11/22/21 08:06 Period Temp Pulse Resp BP Sys/Tang Pulse Ox Last 24 Hr 97.2 F-98.8 F 72-98 16-32 117-169/60-116 87-98 Intake and Output 11/21/21 11/22/21 11/22/21 21:59 05:59 13:59 Intake Total 250 480 240 Output Total 775 Balance 250 -295 240 Weight 76.289 kg 76.289 kg Patient Weight 11/23/21 05:59 Weight 76.289 kg Intake & Output: Intake & Output 11/21/21 11/22/21 11/22/21 21:59 05:59 13:59 Intake Total 250 480 240 Output Total 775 Balance 250 -295 240 Weight 76.289 kg 76.289 kg Intake: IV 250 Zithromax 500 mg In Dextrose 5% 250 in Water 250 ml @ 250 mls/hr IV Q24H [facility] Rx#:[id number] Oral 480 240 Output: Void Amount 775 Other: Meal Breakfast Percent of Meal Consumed 100% Feeding Ability Assist with Tray Set Up Urine Appearance Clear Urine Color Bright Yellow Urine Odor Normal # Voids 1 OBJ DATA Labs CBC & Chem 7: 11/21/21 15:15 11/22/21 05:25 Labs: Abnormal Lab Results 11/22/21 11/21/21 11/21/21 05:25 16:33 15:23 RBC MCV MCH MCHC MPV POC VBG pH 7.49 H POC VBG pCO2 at Temp 35.5 L POC VBG pO2 58 H POC Venous O2 Sat 92.0 H POC VBG Base Excess 3.0 H Glucose 180 H POC WB Ioniz Calcium Phosphorus 2.4 L Iron 32 L Transferrin % Sat 9 L POC Troponin I 11/21/21 11/21/21 11/21/21 15:15 15:10 15:07 RBC 5.85 H MCV 75.9 L MCH 22.9 L MCHC 30.2 L MPV 10.5 H POC VBG pH POC VBG pCO2 at Temp POC VBG pO2 POC Venous O2 Sat POC VBG Base Excess Glucose POC WB Ioniz Calcium 1.05 L Phosphorus Iron Transferrin % Sat POC Troponin I 0.09 H Meds: Medications Acetaminophen (Acetaminophen 325 Mg Tablet) 650 mg PO Q6HP PRN; Protocol PRN Reason: Per Pain Protocol/Fever > 101 Albuterol/Ipratropium (Ipratropium/Albuterol 3 Ml Ampul.Neb) 3 ml NEB Q6HRT [facility] Last Admin: 11/22/21 08:02 Dose: 3 ml Documented by: Albuterol/Ipratropium (Ipratropium/Albuterol 3 Ml Ampul.Neb) 3 ml NEB Q4HP PRN PRN Reason: Shortness Of Breath Budesonide (Budesonide 0.5 Mg/2 Ml Ampul.Neb) 0.5 mg NEB Q12 [facility] Last Admin: 11/22/21 08:02 Dose: 0.5 mg Documented by: Docusate Sodium (Docusate Sodium 100 Mg Capsule) 100 mg PO BID [facility] Last Admin: 11/22/21 10:42 Dose: 100 mg Documented by: Potassium Chloride 40 meq/ (Dextrose) 520 mls @ 130 mls/hr IV UD PRN PRN Reason: Potassium < 3 Magnesium Sulfate (Magnesium Sulfate) 2 gm in 50 mls @ 50 mls/hr IV UD PRN PRN Reason: Magnesium </= 1.6 Azithromycin 500 mg/ Dextrose 250 mls @ 250 mls/hr IV Q24H [facility]; Protocol Stop: 11/23/21 19:30 Last Infusion: 11/21/21 21:20 Dose: Infused Documented by: Methylprednisolone Sodium Succinate (Methylprednisolone Sod Succ 125 Mg/2 Ml Vial) 62.5 mg IV Q12 [facility] Last Admin: 11/22/21 10:43 Dose: 62.5 mg Documented by: Metoclopramide HCl (Metoclopramide 10 Mg/2 Ml Vial) 10 mg IV Q6HP PRN PRN Reason: Nausea And Vomiting Omeprazole (Omeprazole 20 Mg Capsule) 40 mg PO ACB [facility] Last Admin: 11/22/21 10:42 Dose: 40 mg Documented by: Ondansetron HCl (Ondansetron 4 Mg/2 Ml Vial) 4 mg IV Q4HP PRN PRN Reason: Nausea And Vomiting Polyethylene Glycol (Polyethylene Glycol 3350 17 Gm Packet) 17 gm PO DAILYP PRN PRN Reason: Constipation Polysaccharide Iron Complex (Iron Polysaccharide Complex 150 Mg Capsule) 150 mg PO DAILY [facility] Last Admin: 11/22/21 10:42 Dose: 150 mg Documented by: Potassium Chloride (Potassium Chloride 20 Meq Tablet) 40 meq PO UD PRN PRN Reason: Potssium is 3-3.5 Potassium Chloride (Potassium Chloride 20 Meq Tablet) 40 meq PO UD PRN PRN Reason: Potassium < 3 Senna (Sennosides 1 Tablet) 2 tab PO DAILYP PRN PRN Reason: Constipation Sodium Chloride (0.9 % Sodium Chloride 10 Ml Syringe) 10 ml IV Q8 [facility] Last Admin: 11/22/21 05:10 Dose: 10 ml Documented by: A/P Narrative A/P Narrative: A: *AECOPD(not on home O2): -rvp neg *Acute hypoxic respiratory failure: -2L *h/o JURGEN: Intolerant to CPAP machine *Chronic pain: *GERD: *JOYCELYN: *Obesity: BMI 31 *Tobacco abuse: P: -Steroids (wean) -wean O2 as able -Nebs, IS/Acapella, RT -nebs -Empiric azithromycin -iron supp -pT/OT -ppx: Lovenox Time Spent With Patient Time: Total time spent is greater than 50% in coordination of care (as documented) at patient's floor/unit and/or counseling patient:
[2021-11-22] MEDS: AZITHROMYCIN 500 MG in DEXTROSE 5% IN WATER 250 ML IV SCH (12:47)
[2021-11-23] MEDS: IPRATROPIUM/ALBUTEROL 3 ML AMPUL.NEB NEB SCH ×3 (03:25→15:39)
[2021-11-23] MEDS: 0.9 % SODIUM CHLORIDE 10 ML SYRINGE IV SCH ×2 (04:07→15:39)
[2021-11-23] MEDS: BUDESONIDE 0.5 MG/2 ML AMPUL.NEB NEB SCH (07:36)
[2021-11-23] MEDS: DOCUSATE SODIUM 100 MG CAPSULE PO SCH (09:10)
[2021-11-23] MEDS: OMEPRAZOLE 20 MG CAPSULE PO SCH (09:10)
[2021-11-23] MEDS: IRON POLYSACCHARIDE COMPLEX 150 MG CAPSULE PO SCH (09:11)
[2021-11-23] MEDS: methylPREDNISolone SOD SUCC 125 MG/2 ML VIAL IV SCH (09:11)
--- NOTE | 2021-11-23 11:09 | Discharge Summary ---
Discharge Provider Provider Patient information: Note initiated : 11/23/21 at 11:08 am Service Date, if different from initiated Date: [] Patient: Alisson Gutierrez 66 y/o F admitted on 11/21/21 for Shortness of breath. Chief Complaint: [] Date of admission: 11/21/21 18:09 Discharge date: 11/23/21 Primary care physician: Rocky Damon MD Consults: 11/21/21 16:27 Consult to Physician [CONS] Stat Comment: Consulting Provider: Rosalino Christianson Reason For Exam: Physician to Consult Discharge Meds Discharge Medications Home Medications albuterol sulfate 90 mcg/actuation aerosol inhaler 2 puff INHALATION Q6HP PRN 08/23/20 [History Confirmed 11/21/21 Last Taken 10/19/20 04:00] budesonide-formoterol HFA 160 mcg-4.5 mcg/actuation aerosol inhaler (Symbicort) 2 puff INHALATION Q12H #10.2 g 04/06/21 [Rx Confirmed 11/21/21 Last Taken Unknown] hydrocodone 5 mg-acetaminophen 325 mg tablet 1 tab PO TID PRN 14 Days #42 tab 06/05/21 [Rx Confirmed 11/21/21 Last Taken Unknown] nebulizer accessories (Adult Aerosol Mask) #1 ea 08/03/21 [Rx Confirmed 11/21/21 Last Taken Unknown] estradiol 1 mg tablet 1 mg PO QDAY #30 tab 09/20/21 [Rx Confirmed 11/21/21 Last Taken Unknown] omeprazole 40 mg capsule,delayed release 40 mg PO QAM #30 cap 09/20/21 [Rx Confirmed 11/21/21 Last Taken Unknown] ipratropium 0.5 mg-albuterol 3 mg (2.5 mg base)/3 mL nebulization soln 3 ml INHALATION TID #270 ml 09/28/21 [Rx Confirmed 11/21/21 Last Taken Unknown] azithromycin 250 mg tablet 250 mg PO QDAY 3 Days #3 tab 11/23/21 [Rx Last Taken Unknown] nicotine 7 mg/24 hr daily transdermal patch 1 patch TRANSDERMAL Q24H #14 ea 11/23/21 [Rx Last Taken Unknown] prednisone 20 mg tablet 40 mg PO QDAY 3 Days #6 tab 11/23/21 [Rx Last Taken Unknown] COURSE Hospital Course Hospital course: Ms. Gutierrez is a 66 year old female who presented to the ED with shortness of breath and cough. Patient has a history of COPD and is on inhalers but does not use home oxygen. She has a history of obstructive sleep apnea and was on a CPAP in the past but was lost phobic and did not tolerate it so she had to return the machine. She does have a sleep study coming up soon. Patient states that yesterday she did some cleaning in her house with bleach and vinegar and a strong fumes made her feel ill little lightheaded and nauseous dizzy and then she started developing some mild shortness of breath and mild cough. Earlier today she was in traffic stuck behind a diesel truck several times which meters symptoms even worse and she continued to have worsening shortness of breath and coughing. She is coughing up yellow sputum. She says her chest is tight. She was seen in the ED and had a chest x-ray that was unremarkable he is given heart nebulizers which helped her work of breathing and helped her feel a bit better but she was still hypoxic on room air. Lowest recorded oxygen is 87% on room air. Patient denies any fever chills. Also of note her grandson was over earlier today and does have a what appeared via upper respiratory tract infection. COVID screen and flu screen in the ED were negative. Procalcitonin and lactate were unremarkable in the ED. 11/22 Patient complains of cough and shortness of breath although she feels her shortness of breath this gradually improving. Respiratory viral panel negative. Iron deficiency anemia noted on labs. 11/23 Discharged to home, completed home oxygen evaluation prior to discharge. Complete 5 days of azithromycin and systemic steroids with prednisone. Tobacco cessation discussed, discharged with nicotine patch per patient's request. Physical exam Head: Atraumatic, normal inspection. Eyes: normal appearance, no scleral icterus. Neck: full ROM Respiratory: no respiratory distress. Cardiovascular: normal rate and rhythm, S1, S2. GI/Abdominal: soft, nontender, no guarding. Extremities: full range of motion, nontender. Neurological: CN II-XII intact, intact motor, intact sensation. Psychiatric: normal mood. Skin: warm, normal color Discharge diagnosis: COPD exacerbation Time Spent with Patient Time attestation: Total time spent providing and/or coordinating discharge services: EXAM Constitutional Vitals: Temp Pulse Resp BP Pulse Ox 97.4 F 80 18 137/75 95 11/23/21 08:14 11/23/21 08:14 11/23/21 08:14 11/23/21 08:14 11/23/21 08:14 Discharge Data Data Completed and Pending Labs on day of discharge: Preliminary micro results at discharge 11/21/21 15:22 Blood Culture - Preliminary Blood 11/21/21 15:17 Blood Culture - Preliminary Blood Discharge Plan Patient/Caregiver Discharge Instructions Activity: increase activity as tolerated Diet: Regular Diet Prescriptions: New azithromycin 250 mg tablet 250 mg PO QDAY 3 Days Qty: 3 0RF prednisone 20 mg tablet 40 mg PO QDAY 3 Days Qty: 6 0RF nicotine 7 mg/24 hr patch 24 hour 1 patch transdermal Q24H Qty: 14 4RF Continued budesonide-formoterol [Symbicort] 160-4.5 mcg/actuation HFA aerosol inhaler 2 puff INHALATION Q12H Qty: 10.2 11RF omeprazole 40 mg capsule,delayed release(DR/EC) 40 mg PO QAM Qty: 30 5RF estradiol 1 mg tablet 1 mg PO QDAY Qty: 30 5RF Label Comments: Awaiting to hear from [facility] pharmacy about refill. hydrocodone-acetaminophen 5-325 mg tablet 1 tab PO TID PRN (Reason: pain) 14 Days Qty: 42 0RF ipratropium-albuterol 0.5 mg-3 mg(2.5 mg base)/3 mL solution for nebulization 3 ml INHALATION TID Qty: 270 6RF albuterol sulfate 90 mcg/actuation HFA aerosol inhaler 2 puff INHALATION Q6HP PRN (Reason: shortness of breath or wheezing) 0RF No Action (DME) Adult Aerosol Mask Misc See Rx Instructions .ROUTE .MEDSUPPLY Qty: 1 1RF Rx Instructions: Nebulizer tubing and mask Follow Up Plan Follow up with: Rocky Damon MD [Primary Care Provider] - Patient Disposition: Home, Self-Care Prognosis: Fair Overall status at discharge: patient is progressing back to baseline Discharge Orders: Discharge Order (Routine); Ordered 11/23/21 Ordered By: Alcon Barker
[2021-11-23] MEDS: AZITHROMYCIN 500 MG in DEXTROSE 5% IN WATER 250 ML IV SCH (11:15)
--- NOTE | 2021-11-24 06:18 | EKG ---
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
== END 2021-11-23 13:00 | disposition home or self-care (01) | DRG 190 ==
LOC: ED 14:53 → MEDSUR 18:09
PROVIDERS: ADMIT Internal Medicine; ATTEND Internal Medicine

== ENCOUNTER 2021-11-28 13:22 | Inpatient (IN) ==
[2021-11-28] MEDS ORDERED: methylPREDNISolone SOD SUCC 125 MG/2 ML VIAL IV ONE (13:37)
[2021-11-28] MEDS ORDERED: IPRATROPIUM/ALBUTEROL 3 ML AMPUL.NEB NEB ONE (13:37)
[2021-11-28] MEDS ORDERED: ALBUTEROL SULFATE 2.5 MG/3 ML NEBULIZER NEB ONE (13:37)
[2021-11-28 13:47] LABS: POC Calcium, Ionized 1.05 (1.16-1.32); POC Creatinine 0.8 (0.6-1.2); POC Potassium 3.5 (3.3-5.1)
[2021-11-28 14:22] LABS: Basophils # (Auto) 0.05 K/mcL (0.00-0.30); Basophils % (Auto) 0.3 % (0.0-2.0); Hematocrit 43.8 % (34.1-44.9); Hemoglobin 13.4 g/dL (11.2-15.7); Lymphocytes # (Auto) 3.73 K/mcL (1.50-4.80); Lymphocytes % (Auto) 25.3 % (15.5-49.0); Mean Corpuscular HGB Conc 30.6 g/dL (31.0-36.0); Mean Platelet Volume 10.3 fL (7.4-10.4); Monocytes # (Auto) 0.93 K/mcL (0.10-0.90); Monocytes % (Auto) 6.3 % (1.0-12.0); Neutrophils % (Auto) 66.1 % (38.0-78.0); Platelet Count 314 K/mcL (140-440); RBC 5.84 M/mcL (3.59-5.38); Red Cell Distribution Width 14.4 % (11.5-14.5); WBC 14.7 K/mcL (4.5-11.0)
[2021-11-28 14:48] LABS: ALT/SGPT 13 U/L (<40); AST/SGOT 10 U/L (<32); Albumin 3.7 gm/dL (3.2-5.2); Albumin/Globulin Ratio 1.2 (1.0-2.3); Alkaline Phosphatase 114 U/L (39-117); Bilirubin,Total 0.7 mg/dL (0.1-1.0); Blood Urea Nitrogen 10 mg/dL (8-23); Calcium 8.4 mg/dL (8.6-10.4); Carbon Dioxide 28 mmol/L (22-30); Chloride 98 mmol/L (96-108); Globulin 3.1 gm/dL (2.2-3.7); Glomerular Filtration Rate 90; Glucose 90 mg/dL (70-105)
--- NOTE | 2021-11-28 15:43 | Cat Scan Report ---
History: Shortness of breath, COPD TECHNIQUE: The chest was imaged without contrast in axial plane at 2.5 mm intervals. Sagittal, coronal and axial MIPS images were created. The radiation exposure was limited using dose reduction technology. FINDINGS: Mild bronchial wall thickening is present centrally in both lungs involving all lobes. There is no evidence of pneumonia. Prominent increased interstitial lung markings are present medially in the right upper lobe, medially in the right middle lobe and anterior segment of the right upper lobe due to low-grade inflammation. There is a cluster of several small ill-defined nodular densities laterally in the right upper lobe. The largest is seen on image 43 and measures 3 x 4 mm. These have increased in number and size since prior CT performed on 01/11/20. This appears to be due to a granulomatous reaction. No evidence of emphysema. No enlarged calcified lymph nodes are present within the mediastinum nor sea. There is no pleural effusion. The heart is normal in size and contour. Aorta is normal caliber there are scattered plaques along the wall of the arch. There are few nonobstructing calyceal stones in both kidneys. They measure up to 3 mm in size. IMPRESSION: Bronchitis Small nodular densities in the right upper lobe. The pattern is consistent with a granulomatous infection. Nonobstructing kidney stones Dr. Culver was called with report Interpreted and Authenticated by: Earl Zhong 11/28/21
--- NOTE | 2021-11-28 16:27 | Internal Med History&Physical ---
HPI History of Present Illness Patient information: Note initiated : 11/28/21 at 4:23 pm Service Date, if different from initiated Date: [] Patient: Alisson Gutierrez a 66 y/o F admitted on for shortness of breath, COPD. Chief Complaint: [SOB] Chief complaint: Dyspnea History of present illness: Ms. Gutierrez is a 66 year old F with a past medical history significant for COPD who recently quit smoking approximately 1 month ago presents to the hospital for the second time within a week with complaints of shortness of breath. She states that last week, she was cleaning the bathroom with bleach when she became significantly short of breath. She presented to the hospital and was discharged from the ER with supplemental O2. She denied ongoing cigarette use however it is unclear if she is being truthful. She denies any secondhand smoke exposure. She denies any fevers, chills but did endorse chest tightness. She continued to become increasingly short of breath and presented to the hospital in extremis. She was in a tripod position with minimal air entry bilaterally on auscultation per the ER physician and was placed on positive pressure ventilation with BiPAP as a temporizing measure. She was admitted to the [facility] service for acute exacerbation of COPD. Review of Systems All systems: reviewed and no additional remarkable complaints except as stated Constitutional Constitutional: Present as per HPI EENT Eyes: Present as per HPI; Absent blurry vision Cardiovascular Cardiovascular: Present as per HPI; Absent chest pain, dyspnea, dyspnea on exertion, leg edema or palpatations Respiratory Respiratory: Present as per HPI, dyspnea, dyspnea on exertion and wheezing; Absent cough or stridor Gastrointestinal Gastrointestinal: Present as per HPI; Absent abdominal pain, diarrhea, dysphagia, hematemesis, melena, nausea or vomiting Musculoskeletal Musculoskeletal: Present as per HPI; Absent joint swelling, limited range of motion, muscle cramps, muscle weakness or myalgias Integumentary Integumentary: Present as per HPI; Absent erythema, new lesions, rash or wounds Neurological Neurological: Present as per HPI; Absent abnormal gait, behavioral changes, focal weakness, headache(s), loss of vision, numbness, sensory deficit or syncope Endocrine Endocrine: Absent change in body appearance, fatigue or heat intolerance Hematologic/Lymphatic Hematologic/Lymphatic: Present as per HPI PFSH PFSH All Active Problems (Updated 11/28/21 @ 16:42 by Siva Snyder MD) Acute hypoxemic respiratory failure (Acute) COPD exacerbation (Acute) Acute exacerbation of chronic obstructive pulmonary disease (Acute) Medicare welcome visit (Acute) Snoring (Acute) Right upper quadrant pain (Acute) Acute and chronic cholecystitis (Acute) Recurrent biliary colic (Acute) Biliary colic (Acute) Total knee replacement status (Acute) Urinary incontinence in female (Acute) Iron deficiency (Acute) Fatigue (Acute) Urinary tract infection (Acute) Sepsis (Acute) Scaly patch rash (Acute) Sleep apnea (Chronic) Thoracic back pain (Acute) Macromastia (Acute) Vitamin B12 deficiency (Acute) COPD with exacerbation (Acute) Dyspnea (Acute) Gastroenteritis (Acute) Nausea and vomiting in adult (Acute) UTI (urinary tract infection) (Acute) Nocturnal hypoxia (Chronic) Witnessed apneic spells (Chronic) Hypersomnia (Chronic) GERD (gastroesophageal reflux disease) (Chronic) Tobacco use (Chronic) COPD (chronic obstructive pulmonary disease) (Chronic) Obesity (BMI 30.0-34.9) (Chronic) Hyperlipidemia (Chronic) Hypertension, essential (Chronic ~1994) Chronic knee pain (Chronic) Anxiety (Chronic ~1994) Arthritis (Chronic ~1989) Asthma (Chronic ~1973) Depression (Chronic ~1979) Insomnia (Chronic ~2013) Joint pain (Chronic ~1979) Bowel disease (Chronic) Degenerative lumbar disc (Chronic ~1979) Medical History Acid reflux (~2009) Acute exacerbation of chronic obstructive airways disease Acute exacerbation of chronic obstructive airways disease Acute seborrheic dermatitis Anemia (~2014) Anxiety (~1994) Arthritis (~1989) Asthma (~1973) Bowel disease Chronic knee pain COPD (chronic obstructive pulmonary disease) Degenerative lumbar disc (~1979) Depression (~1979) Elevated liver enzymes Fatigue GERD (gastroesophageal reflux disease) History of pneumonia Hyperlipidemia Hypersomnia Hypertension, essential (~1994) Insomnia (~2013) Iron deficiency Joint pain (~1979) Left knee pain Macromastia Medicare welcome visit Nocturnal hypoxia Obesity (BMI 30.0-34.9) Right upper quadrant pain Scaly patch rash Sleep apnea Snoring Thoracic back pain Tobacco use Urinary incontinence in female Witnessed apneic spells Surgical History H/O colonoscopy (~2016) 2015 repeat due H/O total hysterectomy (~1989) History of lumpectomy of left breast (~1995) Tumor removed History of surgery (~1971) Tumor removed from left leg Hx of appendectomy (~1981) Family History Brother Arthritis Diabetes Brothers Grandfather Arthritis Maternal Grandmother Cancer Maternal Mother Lung cancer Father Heart attack Daughter Heart attack Seizures Sister Stroke Other Fall Social History household members: other details: Grandson housing: house lives independently: Yes marital status: other: Children-3 smoking status: Current every day smoker tobacco type: cigarettes per day: 2 smoking status start date: 10/30/71 alcohol intake frequency: does not drink substance use type: does not use MEDS/ALLERGIES Home Medications and Allergies Home Medications Medication Instructions Recorded Confirmed Type albuterol sulfate 90 mcg/actuation 2 puff INHALATION Q6HP PRN 08/23/20 11/21/21 History aerosol inhaler budesonide-formoterol HFA 160 2 puff INHALATION Q12H #10.2 g 04/06/21 11/21/21 Rx mcg-4.5 mcg/actuation aerosol inhaler (Symbicort) hydrocodone 5 mg-acetaminophen 325 1 tab PO TID PRN 14 Days #42 tab 06/05/21 11/21/21 Rx mg tablet nebulizer accessories (Adult #1 ea 08/03/21 11/21/21 Rx Aerosol Mask) estradiol 1 mg tablet 1 mg PO QDAY #30 tab 09/20/21 11/21/21 Rx omeprazole 40 mg capsule,delayed 40 mg PO QAM #30 cap 09/20/21 11/21/21 Rx release ipratropium 0.5 mg-albuterol 3 mg 3 ml INHALATION TID #270 ml 09/28/21 11/21/21 Rx (2.5 mg base)/3 mL nebulization soln nicotine 7 mg/24 hr daily 1 patch TRANSDERMAL Q24H #14 ea 11/23/21 Rx transdermal patch Allergies Allergy/AdvReac Type Severity Reaction Status Date / Time acetaminophen [From Tylenol] AdvReac Intermediate Vomiting Verified 11/28/21 13:29 fish derived AdvReac Intermediate Vomiting, Verified 11/28/21 13:29 rash, swelling EXAM Constitutional Vitals: Temp Pulse Resp BP Pulse Ox 99.3 F H 92 H 22 120/61 91 11/28/21 13:24 11/28/21 16:16 11/28/21 16:16 11/28/21 16:16 11/28/21 16:16 General appearance: average body habitus Head Head exam: Present atraumatic, normal inspection and normocephalic Eye Eye exam: Present EOMI, normal appearance and PERRL; Absent conjunctival i njection ENT ENT exam: Present normal exam; Absent mucous membranes dry Neck Neck exam: Present full ROM; Absent lymphadenopathy Respiratory Respiratory exam: Present accessory muscle use, decreased breath sounds, CTAB and rhonchi; Absent normal respiratory exam, respiratory distress or wheezes Cardiovascular Cardiovascular exam: Present normal rate and rhythm and RRR; Absent JVD GI/Abdominal GI/Abdominal exam: Present normal bowel sounds and soft; Absent diminished bowel sounds, distended, guarding, mass, rebound or tenderness Neurological Exam Neurological exam: Present alert, CN II-XII intact and oriented X3 Psychiatric Psychiatric exam: Present normal affect and normal mood Skin Skin exam: Present intact and warm; Absent erythema, pallor, petechiae or rash DATA Data Completed and Pending Labs: Labs from last 24 hours 11/28/21 11/28/21 11/28/21 13:42 13:41 13:41 WBC RBC Hgb Hct POC Hct 43.0 MCV MCH MCHC RDW Plt Count MPV Neut % (Auto) Lymph % (Auto) [place] % (Auto) Eos % (Auto) Baso % (Auto) Lymph # (Auto) [place] # (Auto) Eos # (Auto) Baso # (Auto) Absolute Neutrophils POC VBG pH 7.48 H POC VBG pCO2 at Temp 41.8 POC VBG pO2 46 H POC VBG HCO3 31.3 H POC VBG Total CO2 33.0 H POC Venous O2 Sat 84.0 H POC VBG Base Excess 8.0 H* POC Sodium 139 Sodium 136 POC Potassium 3.5 Potassium 3.5 POC Chloride 100 Chloride 98 Carbon Dioxide 28 POC Total CO2 29.0 Anion Gap 10.0 POC BUN 11 BUN 10 Creatinine 0.7 POC Creatinine 0.8 GFR Calculation 90 Glucose 90 POC Glucose 97 POC Venous Lactate 0.6 Calcium 8.4 L POC WB Ioniz Calcium 1.05 L Total Bilirubin 0.7 AST 10 ALT 13 Alkaline Phosphatase 114 Total Protein 6.8 Albumin 3.7 Globulin 3.1 Albumin/Globulin Ratio 1.2 11/28/21 13:41 WBC 14.7 H RBC 5.84 H Hgb 13.4 Hct 43.8 POC Hct MCV 75.0 L MCH 22.9 L MCHC 30.6 L RDW 14.4 Plt Count 314 MPV 10.3 Neut % (Auto) 66.1 Lymph % (Auto) 25.3 [place] % (Auto) 6.3 Eos % (Auto) 2.0 Baso % (Auto) 0.3 Lymph # (Auto) 3.73 [place] # (Auto) 0.93 H Eos # (Auto) 0.30 Baso # (Auto) 0.05 Absolute Neutrophils 9.72 H POC VBG pH POC VBG pCO2 at Temp POC VBG pO2 POC VBG HCO3 POC VBG Total CO2 POC Venous O2 Sat POC VBG Base Excess POC Sodium Sodium POC Potassium Potassium POC Chloride Chloride Carbon Dioxide POC Total CO2 Anion Gap POC BUN BUN Creatinine POC Creatinine GFR Calculation Glucose POC Glucose POC Venous Lactate Calcium POC WB Ioniz Calcium Total Bilirubin AST ALT Alkaline Phosphatase Total Protein Albumin Globulin Albumin/Globulin Ratio A/P Assessment and plan (1) Acute exacerbation of chronic obstructive pulmonary disease: Status: Acute (2) Tobacco use: Status: Chronic (3) Acute hypoxemic respiratory failure: Status: Acute Narrative A/P Narrative: The patient is a former smoker and is unclear if she continues to smoke. She presented to the hospital in respiratory extremis. She has rhonchorous breath sounds with bronchial breathing and decreased air entry bilaterally. We will treat her with duo nebs, Pulmicort, prednisone, and ceftriaxone/Z-Oc. Continue pulmonary toileting with incentive spirometer and chest physical therapy. Continue supplemental O2 and wean off positive pressure ventilation. Time Spent With Patient Time: Total time spent is greater than 50% in coordination of care (as documented) at patient's floor/unit and/or counseling patient: Total time spent with greater than 50% in coordination of care (as documented) at patient's floor/unit and/or counseling patient:: 35 - 50 minutes
--- NOTE | 2021-11-28 16:33 | Emergency Department Note ---
HPI General Chief complaint: Shortness of Breath/Dyspnea Stated complaint: shortness of breath, COPD Time Seen by Provider: 11/28/21 13:37 Source: patient and EMS Mode of arrival: EMS Limitations: no limitations History of Present Illness HPI Narrative: Narrative: 66-year-old female with history of COPD, former smoker, recent admission less than a week ago for COPD exacerbation post bleach inhalation presents for evaluation of worsening shortness of breath since last night, not relieved with home albuterol. On arrival she is in respiratory distress with severe conversational dyspnea and tripoding with retractions. Limited history due to this. She denies any chest pain or pleurisy. She denies fever chills or significant cough. She did complete her discharge treatment. She has not had/required BiPAP/intubation in the past Related Data Home Medications Medication Instructions Recorded Confirmed albuterol sulfate 90 mcg/actuation 2 puff INHALATION Q6HP PRN 08/23/20 11/21/21 aerosol inhaler Previous Rx's Medication Instructions Recorded budesonide-formoterol HFA 160 2 puff INHALATION Q12H #10.2 g 04/06/21 mcg-4.5 mcg/actuation aerosol inhaler (Symbicort) hydrocodone 5 mg-acetaminophen 325 1 tab PO TID PRN 14 Days #42 tab 06/05/21 mg tablet nebulizer accessories (Adult #1 ea 08/03/21 Aerosol Mask) estradiol 1 mg tablet 1 mg PO QDAY #30 tab 09/20/21 omeprazole 40 mg capsule,delayed 40 mg PO QAM #30 cap 09/20/21 release ipratropium 0.5 mg-albuterol 3 mg 3 ml INHALATION TID #270 ml 09/28/21 (2.5 mg base)/3 mL nebulization soln nicotine 7 mg/24 hr daily 1 patch TRANSDERMAL Q24H #14 ea 11/23/21 transdermal patch Allergies Allergy/AdvReac Type Severity Reaction Status Date / Time acetaminophen [From Tylenol] AdvReac Intermediate Vomiting Verified 11/28/21 13:29 fish derived AdvReac Intermediate Vomiting, Verified 11/28/21 13:29 rash, swelling Review of Systems ROS ROS Narrative: Narrative: Limitations: ROS unobtainable due to patients medical condition (Limited by patient with respiratory distress, EM caveat invoked) PFSH Narrative Patient History Narrative: Narrative: Medical/Surgical/Family History All Active Problems (Updated 11/28/21 @ 16:40 by Nhan Culver DO) COPD exacerbation (Acute) Acute exacerbation of chronic obstructive pulmonary disease (Acute) Medicare welcome visit (Acute) Snoring (Acute) Right upper quadrant pain (Acute) Acute and chronic cholecystitis (Acute) Recurrent biliary colic (Acute) Biliary colic (Acute) Total knee replacement status (Acute) Urinary incontinence in female (Acute) Iron deficiency (Acute) Fatigue (Acute) Urinary tract infection (Acute) Sepsis (Acute) Scaly patch rash (Acute) Sleep apnea (Chronic) Thoracic back pain (Acute) Macromastia (Acute) Vitamin B12 deficiency (Acute) COPD with exacerbation (Acute) Dyspnea (Acute) Gastroenteritis (Acute) Nausea and vomiting in adult (Acute) UTI (urinary tract infection) (Acute) Nocturnal hypoxia (Chronic) Witnessed apneic spells (Chronic) Hypersomnia (Chronic) GERD (gastroesophageal reflux disease) (Chronic) Tobacco use (Chronic) COPD (chronic obstructive pulmonary disease) (Chronic) Obesity (BMI 30.0-34.9) (Chronic) Hyperlipidemia (Chronic) Hypertension, essential (Chronic ~1994) Chronic knee pain (Chronic) Anxiety (Chronic ~1994) Arthritis (Chronic ~1989) Asthma (Chronic ~1973) Depression (Chronic ~1979) Insomnia (Chronic ~2013) Joint pain (Chronic ~1979) Bowel disease (Chronic) Degenerative lumbar disc (Chronic ~1979) Medical History Acid reflux (~2009) Acute exacerbation of chronic obstructive airways disease Acute exacerbation of chronic obstructive airways disease Acute seborrheic dermatitis Anemia (~2014) Anxiety (~1994) Arthritis (~1989) Asthma (~1973) Bowel disease Chronic knee pain COPD (chronic obstructive pulmonary disease) Degenerative lumbar disc (~1979) Depression (~1979) Elevated liver enzymes Fatigue GERD (gastroesophageal reflux disease) History of pneumonia Hyperlipidemia Hypersomnia Hypertension, essential (~1994) Insomnia (~2013) Iron deficiency Joint pain (~1979) Left knee pain Macromastia Medicare welcome visit Nocturnal hypoxia Obesity (BMI 30.0-34.9) Right upper quadrant pain Scaly patch rash Sleep apnea Snoring Thoracic back pain Tobacco use Urinary incontinence in female Witnessed apneic spells Surgical History H/O colonoscopy (~2015) 2015 repeat due H/O total hysterectomy (~1989) History of lumpectomy of left breast (~1995) Tumor removed History of surgery (~1971) Tumor removed from left leg Hx of appendectomy (~1981) Family History Brother Arthritis Diabetes Brothers Grandfather Arthritis Maternal Grandmother Cancer Maternal Mother Lung cancer Father Heart attack Daughter Heart attack Seizures Sister Stroke Other Fall Social History Smoking Status: Current every day smoker Alcohol Intake Frequency: does not drink Substance Use: does not use Exam Narrative Narrative: Narrative: General Limitations: no limitations General appearance: Present alert and in distress; Absent lethargic Head Head: Present atraumatic and normocephalic Eye Eye: Present normal appearance and EOMI ENT ENT: Present normal exam and mucous membranes moist Neck Neck: Present normal inspection and full ROM Chest Chest: Present normal inspection and symmetric chest wall rise; Absent tenderness Respiratory Respiratory: Present respiratory distress, wheezes, accessory muscle use, decreased breath sounds and other (Patient tripoding with severe conversational dyspnea, very poor air movement, supracostal retractions) Cardiovascular Cardiovascular: Present regular rate and normal rhythm Adbominal Abdominal: Present soft; Absent tenderness Extremities Extremities: Present normal inspection and full ROM; Absent pedal edema Back Back: Present normal inspection and full ROM Neurological Neurological: Present alert, oriented X3 and CN II-XII intact; Absent motor sensory deficit Psychiatric Psychiatric: Present normal affect and anxious Skin Skin: Present warm (WNL), dry and normal color Course Vital Signs Vital signs: Vital Signs Temperature 99.3 F H 11/28/21 13:24 Pulse Rate 90 11/28/21 13:24 Respiratory Rate 30 H 11/28/21 13:24 Blood Pressure 140/72 11/28/21 13:24 Pulse Oximetry (%) 94 11/28/21 13:24 Temperature 99.3 F H 11/28/21 13:24 Pulse Rate 92 H 11/28/21 16:16 Respiratory Rate 22 11/28/21 16:16 Blood Pressure 120/61 11/28/21 16:16 Pulse Oximetry (%) 91 11/28/21 16:16 MDM MDM Narrative Medical decision making narrative: Narrative: Patient with rapid COPD decompensation following completion of steroids. No new insult. CT obtained, noncontrast due to recent potential inhalation injury. This did not show severe inflammation but did show some new granulomatous disease. Flu and COVID were negative. She does not have any acute infectious symptoms or change in cough requiring antibiotic therapy. She was given IV Solu-Medrol, placed on BiPAP, given continuous nebulizer treatment. She is still having significant wheezing and poor air movement [place] if she will benefit from hospitalization. She was not hypoxic or severely retaining CO2 on ABG. She was admitted for further care Medical Records Medical records reviewed: Yes I reviewed the patient's medical records. Lab Data Lab results reviewed: Yes I reviewed the patient's lab results. Result diagrams: 11/28/21 13:41 11/28/21 13:41 Labs: Lab Results 11/28/21 11/28/21 11/28/21 Range/Units 13:41 13:41 13:41 WBC 14.7 H (4.5-11.0) K/mcL RBC 5.84 H (3.59-5.38) M/mcL Hgb 13.4 (11.2-15.7) g/dL Hct 43.8 (34.1-44.9) % POC Hct (36-48) MCV 75.0 L (80.0-100.0) fL MCH 22.9 L (26.0-34.0) pg MCHC 30.6 L (31.0-36.0) g/dL RDW 14.4 (11.5-14.5) % Plt Count 314 (140-440) K/mcL MPV 10.3 (7.4-10.4) fL Neut % (Auto) 66.1 (38.0-78.0) % Lymph % (Auto) 25.3 (15.5-49.0) % [place] % (Auto) 6.3 (1.0-12.0) % Eos % (Auto) 2.0 (0.0-7.0) % Baso % (Auto) 0.3 (0.0-2.0) % Lymph # (Auto) 3.73 (1.50-4.80) K/mcL [place] # (Auto) 0.93 H (0.10-0.90) K/mcL Eos # (Auto) 0.30 (0.00-0.70) K/mcL Baso # (Auto) 0.05 (0.00-0.30) K/mcL Absolute Neutrophils 9.72 H (1.80-8.00) K/mcL POC VBG pH 7.48 H (7.32-7.42) POC VBG pCO2 at Temp 41.8 (41-51) POC VBG pO2 46 H (25-40) POC VBG HCO3 31.3 H (24-28) POC VBG Total CO2 33.0 H (25-29) POC Venous O2 Sat 84.0 H (40-70) POC VBG Base Excess 8.0 H* (-2-2) POC Sodium (133-145) Sodium 136 (133-145) mmol/L POC Potassium (3.3-5.1) Potassium 3.5 (3.3-5.1) mmol/L POC Chloride (96-108) Chloride 98 (96-108) mmol/L Carbon Dioxide 28 (22-30) mmol/L POC Total CO2 (22-30) Anion Gap 10.0 (8.0-16.0) POC BUN (6-20) BUN 10 (8-23) mg/dL Creatinine 0.7 (0.6-1.1) mg/dL POC Creatinine (0.6-1.2) GFR Calculation 90 Glucose 90 (70-105) mg/dL POC Glucose (70-105) POC Venous Lactate 0.6 (0.5-2) Calcium 8.4 L (8.6-10.4) mg/dL POC WB Ioniz Calcium (1.16-1.32) Total Bilirubin 0.7 (0.1-1.0) mg/dL AST 10 (<32) U/L ALT 13 (<40) U/L Alkaline Phosphatase 114 (39-117) U/L Total Protein 6.8 (5.9-8.4) gm/dL Albumin 3.7 (3.2-5.2) gm/dL Globulin 3.1 (2.2-3.7) gm/dL Albumin/Globulin Ratio 1.2 (1.0-2.3) 11/28/21 Range/Units 13:42 WBC (4.5-11.0) K/mcL RBC (3.59-5.38) M/mcL Hgb (11.2-15.7) g/dL Hct (34.1-44.9) % POC Hct 43.0 (36-48) MCV (80.0-100.0) fL MCH (26.0-34.0) pg MCHC (31.0-36.0) g/dL RDW (11.5-14.5) % Plt Count (140-440) K/mcL MPV (7.4-10.4) fL Neut % (Auto) (38.0-78.0) % Lymph % (Auto) (15.5-49.0) % [place] % (Auto) (1.0-12.0) % Eos % (Auto) (0.0-7.0) % Baso % (Auto) (0.0-2.0) % Lymph # (Auto) (1.50-4.80) K/mcL [place] # (Auto) (0.10-0.90) K/mcL Eos # (Auto) (0.00-0.70) K/mcL Baso # (Auto) (0.00-0.30) K/mcL Absolute Neutrophils (1.80-8.00) K/mcL POC VBG pH (7.32-7.42) POC VBG pCO2 at Temp (41-51) POC VBG pO2 (25-40) POC VBG HCO3 (24-28) POC VBG Total CO2 (25-29) POC Venous O2 Sat (40-70) POC VBG Base Excess (-2-2) POC Sodium 139 (133-145) Sodium (133-145) mmol/L POC Potassium 3.5 (3.3-5.1) Potassium (3.3-5.1) mmol/L POC Chloride 100 (96-108) Chloride (96-108) mmol/L Carbon Dioxide (22-30) mmol/L POC Total CO2 29.0 (22-30) Anion Gap (8.0-16.0) POC BUN 11 (6-20) BUN (8-23) mg/dL Creatinine (0.6-1.1) mg/dL POC Creatinine 0.8 (0.6-1.2) GFR Calculation Glucose (70-105) mg/dL POC Glucose 97 (70-105) POC Venous Lactate (0.5-2) Calcium (8.6-10.4) mg/dL POC WB Ioniz Calcium 1.05 L (1.16-1.32) Total Bilirubin (0.1-1.0) mg/dL AST (<32) U/L ALT (<40) U/L Alkaline Phosphatase (39-117) U/L Total Protein (5.9-8.4) gm/dL Albumin (3.2-5.2) gm/dL Globulin (2.2-3.7) gm/dL Albumin/Globulin Ratio (1.0-2.3) ED POC Tests ED POC Tests: MARY - Influenza A Negative MARY - Influenza B Negative MARY - SARS Antigen Negative Radiology Data Radiology results reviewed: Yes I reviewed the patient's radiology results. EKG Data EKG #1: EKG attestation: Yes I reviewed and interpreted this EKG. EKG results narrative: Sinus rhythm at a rate of 91. Normal axis. QTC 457. Poor R wave progression. No acute ST-T changes. Borderline EKG. CC TIME Critical Care Time Critical Care Time: Yes Attestation: Approximately 30 minutes of critical care time was used in order to assess and manage the high probability of imminent or life threatening deterioration to COPD exacerbation requiring continuous nebulizer and BiPAP which required my highest level of preparedness and interventions with frequent patient assessments. This time is excluding time spent on separately billable procedures. Discharge Plan Patient/Caregiver Discharge Instructions Pt seen by MILANESE KNITTING MACHINE OPERATOR/PA only: No Clinical Impression: Acute exacerbation of chronic obstructive pulmonary disease Patient Disposition: Xfer As Inpt ([facility]) Condition: Fair Follow up with: Rocky Damon MD [Primary Care Provider] - Prescriptions: No Action budesonide-formoterol [Symbicort] 160-4.5 mcg/actuation HFA aerosol inhaler 2 puff INHALATION Q12H Qty: 10.2 11RF (DME) Adult Aerosol Mask Misc See Rx Instructions .ROUTE .MEDSUPPLY Qty: 1 1RF Rx Instructions: Nebulizer tubing and mask omeprazole 40 mg capsule,delayed release(DR/EC) 40 mg PO QAM Qty: 30 5RF estradiol 1 mg tablet 1 mg PO QDAY Qty: 30 5RF Label Comments: Awaiting to hear from [facility] pharmacy about refill. hydrocodone-acetaminophen 5-325 mg tablet 1 tab PO TID PRN (Reason: pain) 14 Days Qty: 42 0RF ipratropium-albuterol 0.5 mg-3 mg(2.5 mg base)/3 mL solution for nebulization 3 ml INHALATION TID Qty: 270 6RF albuterol sulfate 90 mcg/actuation HFA aerosol inhaler 2 puff INHALATION Q6HP PRN (Reason: shortness of breath or wheezing) 0RF nicotine 7 mg/24 hr patch 24 hour 1 patch transdermal Q24H Qty: 14 4RF
[2021-11-28] MEDS ORDERED: ONDANSETRON 4 MG/2 ML VIAL IV PRN (18:02)
[2021-11-28] MEDS ORDERED: cefTRIAXone 1 GM in DEXTROSE 5% IN WATER 50 ML IV SCH (18:02)
[2021-11-28] MEDS ORDERED: SENNOSIDES 1 TABLET PO PRN (18:02)
[2021-11-28] MEDS ORDERED: ACETAMINOPHEN 325 MG TABLET PO PRN (18:02)
[2021-11-28] MEDS ORDERED: LACTULOSE 20 GM/30 ML ORAL.SOL PO PRN (18:02)
[2021-11-28] MEDS: AZITHROMYCIN 250 MG in DEXTROSE 5% IN WATER 250 ML IV SCH (19:26)
[2021-11-28] MEDS: cefTRIAXone 1 GM VIAL IV SCH (19:26)
[2021-11-28] MEDS: BUDESONIDE 0.5 MG/2 ML AMPUL.NEB NEB SCH (19:35)
[2021-11-28] MEDS: IPRATROPIUM/ALBUTEROL 3 ML AMPUL.NEB NEB SCH (19:35)
[2021-11-28] MEDS: DOCUSATE SODIUM 100 MG CAPSULE PO SCH (21:34)
[2021-11-28] MEDS: 0.9 % SODIUM CHLORIDE 10 ML SYRINGE IV SCH (21:45)
[2021-11-28] MEDS ORDERED: HYDROcodone/APAP 5/325MG TABLET PO PRN (21:47)
[2021-11-28] MEDS: KETOROLAC 30 MG/ML VIAL IV PRN (22:58)
[2021-11-28] MEDS ORDERED: KETOROLAC 15 MG/ML VIAL ONE (23:02)
[2021-11-29] MEDS: IPRATROPIUM/ALBUTEROL 3 ML AMPUL.NEB NEB SCH ×4 (01:12→18:44)
[2021-11-29] MEDS: 0.9 % SODIUM CHLORIDE 10 ML SYRINGE IV SCH ×3 (06:03→21:50)
[2021-11-29 06:25] LABS: Basophils # (Auto) 0.01 K/mcL (0.00-0.30); Basophils % (Auto) 0.1 % (0.0-2.0); Eosinophils # (Auto) 0 K/mcL (0.00-0.70); Eosinophils % (Auto) 0 % (0.0-7.0); Hematocrit 41.8 % (34.1-44.9); Hemoglobin 12.6 g/dL (11.2-15.7); Lymphocytes # (Auto) 0.92 K/mcL (1.50-4.80); Lymphocytes % (Auto) 8.5 % (15.5-49.0); Mean Cell Volume 76.3 fL (80.0-100.0); Mean Corpuscular HGB Conc 30.1 g/dL (31.0-36.0); Mean Platelet Volume 10.5 fL (7.4-10.4); Monocytes # (Auto) 0.46 K/mcL (0.10-0.90); Monocytes % (Auto) 4.3 % (1.0-12.0); Neutrophils % (Auto) 87.1 % (38.0-78.0); Platelet Count 287 K/mcL (140-440); RBC 5.48 M/mcL (3.59-5.38); Red Cell Distribution Width 14.1 % (11.5-14.5); WBC 10.8 K/mcL (4.5-11.0)
[2021-11-29 06:49] LABS: Blood Urea Nitrogen 17 mg/dL (8-23); Calcium 8.8 mg/dL (8.6-10.4); Carbon Dioxide 26 mmol/L (22-30); Chloride 100 mmol/L (96-108); Glomerular Filtration Rate 90; Glucose 150 mg/dL (70-105)
[2021-11-29] MEDS: predniSONE 20 MG TABLET PO SCH (07:05)
[2021-11-29] MEDS: OMEPRAZOLE 20 MG CAPSULE PO SCH (07:05)
[2021-11-29] MEDS: BUDESONIDE 0.5 MG/2 ML AMPUL.NEB NEB SCH ×2 (07:47→18:44)
[2021-11-29] MEDS: cefTRIAXone 1 GM VIAL IV SCH (08:44)
[2021-11-29] MEDS: ENOXAPARIN 40 MG/0.4 ML SYRINGE SQ SCH (08:44)
[2021-11-29] MEDS: DOCUSATE SODIUM 100 MG CAPSULE PO SCH ×2 (09:18→19:48)
--- NOTE | 2021-11-29 09:20 | Internal Med Progress Note ---
SUBJECTIVE Subjective Patient information: Note initiated : 11/29/21 at 9:17 am Service Date, if different from initiated Date: Patient: Alisson Gutierrez 66 y/o F admitted on 11/28/21 for shortness of breath, COPD. Chief Complaint: [SOB] Principal diagnosis: Acute hypoxemic respiratory failure Interval history: The patient is doing much better this morning. She denies subjective shortness of breath. Discussed the case with the RN who was present at the bedside. She was about to work with physical therapy this morning. She states that she would likely be living alone as her grandson is moving out. Constitutional Vitals: Vital Signs Temp Pulse Resp BP Pulse Ox 97.7 F 79 17 104/49 92 11/29/21 08:01 11/29/21 08:11 11/29/21 08:11 11/29/21 08:01 11/29/21 08:11 Period Temp Pulse Resp BP Sys/Tang Pulse Ox Last 24 Hr 97.1 F-99.3 F 65-96 15-30 99-145/49-93 89-98 Intake and Output 11/28/21 11/29/21 11/29/21 21:59 05:59 13:59 Intake Total 500 150 240 Output Total 400 Balance 500 150 -160 Weight 79.067 kg Intake & Output: Intake & Output 11/28/21 11/29/21 11/29/21 21:59 05:59 13:59 Intake Total 500 150 240 Output Total 400 Balance 500 150 -160 Weight 79.067 kg Intake: IV 250 Zithromax 250 mg In Dextrose 5% 250 in Water 250 ml @ 250 mls/hr IV Q24H [facility] Rx#:[id number] Oral 250 150 240 Output: Void Amount 400 Other: Meal Dinner Percent of Meal Consumed 100% Feeding Ability Independent Urine Appearance Clear Clear Urine Color Dark Yellow Pale # Voids 1 1 Head Head exam: Present atraumatic and normal inspection Eye Eye exam: Present normal appearance ENT ENT exam: Present mucous membranes moist, normal exam and normal external ear exam Neck Neck exam: Present normal inspection Respiratory Respiratory exam: Present decreased breath sounds, prolonged expiratory phase, rales, rhonchi and wheezes; Absent respiratory distress Cardiovascular Cardiovascular exam: Present normal rate and rhythm GI/Abdominal GI/Abdominal exam: Present normal bowel sounds Back Exam Back exam: Present normal inspection Neurological Exam Neurological exam: Present alert and oriented X3 Skin Skin exam: Present intact and warm OBJ DATA Labs CBC & Chem 7: 11/29/21 05:04 11/29/21 05:04 Labs: Abnormal Lab Results 11/29/21 11/29/21 11/28/21 05:04 05:04 13:42 WBC RBC 5.48 H MCV 76.3 L MCH 23.0 L MCHC 30.1 L MPV 10.5 H Neut % (Auto) 87.1 H Lymph % (Auto) 8.5 L Lymph # (Auto) 0.92 L Butler # (Auto) Absolute Neutrophils 9.38 H POC VBG pH POC VBG pO2 POC VBG HCO3 POC VBG Total CO2 POC Venous O2 Sat POC VBG Base Excess Glucose 150 H Calcium POC WB Ioniz Calcium 1.05 L 11/28/21 11/28/21 11/28/21 13:41 13:41 13:41 WBC 14.7 H RBC 5.84 H MCV 75.0 L MCH 22.9 L MCHC 30.6 L MPV Neut % (Auto) Lymph % (Auto) Lymph # (Auto) Butler # (Auto) 0.93 H Absolute Neutrophils 9.72 H POC VBG pH 7.48 H POC VBG pO2 46 H POC VBG HCO3 31.3 H POC VBG Total CO2 33.0 H POC Venous O2 Sat 84.0 H POC VBG Base Excess 8.0 H* Glucose Calcium 8.4 L POC WB Ioniz Calcium Meds: Medications Hydrocodone Bitart/Acetaminophen (Hydrocodone/Apap 5/325mg Tablet) 1 tab PO Q6HP PRN; Protocol PRN Reason: Per Pain Protocol Albuterol/Ipratropium (Ipratropium/Albuterol 3 Ml Ampul.Neb) 3 ml NEB Q6HRT [facility] Last Admin: 11/29/21 07:47 Dose: 3 ml Documented by: Budesonide (Budesonide 0.5 Mg/2 Ml Ampul.Neb) 0.5 mg NEB Q12 [facility] Last Admin: 11/29/21 07:47 Dose: 0.5 mg Documented by: Ceftriaxone Sodium (Ceftriaxone 1 Gm Vial) 1 gm IV Q24H [facility] Last Admin: 11/29/21 08:44 Dose: 1 gm Documented by: Docusate Sodium (Docusate Sodium 100 Mg Capsule) 100 mg PO BID [facility] Last Admin: 11/28/21 21:34 Dose: Not Given Documented by: Enoxaparin Sodium (Enoxaparin 40 Mg/0.4 Ml Syringe) 40 mg SQ DAILY [facility] Last Admin: 11/29/21 08:44 Dose: 40 mg Documented by: Azithromycin 250 mg/ Dextrose 250 mls @ 250 mls/hr IV Q24H [facility]; Protocol Stop: 11/30/21 19:01 Last Infusion: 11/28/21 20:30 Dose: Infused Documented by: Ketorolac Tromethamine (Ketorolac 30 Mg/Ml Vial) 15 mg IV Q6HP PRN PRN Reason: Pain Stop: 11/30/21 20:15 Last Admin: 11/28/21 22:58 Dose: 15 mg Documented by: Lactulose (Lactulose 20 Gm/30 Ml Oral.Mag) 10 gm PO DAILYP PRN PRN Reason: Constipation Omeprazole ([facility] 20 Mg Capsule) [facility] Last Admin: 11/29/21 07:05 Dose: 40 mg Documented by: Ondansetron HCl (Ondansetron 4 Mg/2 Ml Vial) 4 mg IV Q4HP PRN; Protocol PRN Reason: Nausea And Vomiting Prednisone (Prednisone 20 Mg Tablet) 40 mg PO [facility] Last Admin: 11/29/21 07:05 Dose: 40 mg Documented by: Senna (Sennosides 1 Tablet) 2 tab PO HSP PRN PRN Reason: Constipation Sodium Chloride (0.9 % Sodium Chloride 10 Ml Syringe) 10 ml IV Q8 [facility] Last Admin: 11/29/21 06:03 Dose: 10 ml Documented by: A/P Assessment and plan (1) Acute exacerbation of chronic obstructive pulmonary disease: Status: Acute (2) Tobacco use: Status: Chronic (3) Acute hypoxemic respiratory failure: Status: Acute Narrative A/P Narrative: The patient is a former smoker and is unclear if she continues to smoke. She presented to the hospital in respiratory extremis. She has rhonchorous breath sounds with bronchial breathing and decreased air entry bilaterally. We will treat her with duo nebs, Pulmicort, prednisone, and ceftriaxone/Z-Oc. Continue pulmonary toileting with incentive spirometer and chest physical therapy. Cont inue supplemental O2 and wean off positive pressure ventilation. 11/29: We will continue to hold the course. Her lungs do sound somewhat better however she still has decreased air entry bilaterally and her breath sounds are rhonchorous on auscultation. Continue management as above. PT/OT eval pending. She may need to go to a half-way facility in terms of disposition in 1 to 2 days. Time Spent With Patient Time: Total time spent is greater than 50% in coordination of care (as documented) at patient's floor/unit and/or counseling patient: Total time spent with greater than 50% in coordination of care (as documented) at patient's floor/unit and/or counseling patient:: 35 - 50 minutes
[2021-11-29] MEDS: AZITHROMYCIN 250 MG in DEXTROSE 5% IN WATER 250 ML IV SCH (10:25)
[2021-11-29] MEDS: KETOROLAC 30 MG/ML VIAL IV PRN (19:45)
[2021-11-30] MEDS: IPRATROPIUM/ALBUTEROL 3 ML AMPUL.NEB NEB SCH ×2 (01:10→07:34)
[2021-11-30] MEDS: 0.9 % SODIUM CHLORIDE 10 ML SYRINGE IV SCH ×2 (05:36→11:01)
[2021-11-30] MEDS: BUDESONIDE 0.5 MG/2 ML AMPUL.NEB NEB SCH (07:34)
[2021-11-30] MEDS: predniSONE 20 MG TABLET PO SCH (08:25)
[2021-11-30] MEDS: ENOXAPARIN 40 MG/0.4 ML SYRINGE SQ SCH (08:26)
[2021-11-30] MEDS: OMEPRAZOLE 20 MG CAPSULE PO SCH (08:26)
[2021-11-30] MEDS: cefTRIAXone 1 GM VIAL IV SCH (08:30)
[2021-11-30] MEDS: DOCUSATE SODIUM 100 MG CAPSULE PO SCH (08:52)
[2021-11-30] MEDS: AZITHROMYCIN 250 MG in DEXTROSE 5% IN WATER 250 ML IV SCH (11:02)
--- NOTE | 2021-11-30 11:37 | Discharge Summary ---
Discharge Provider Provider Patient information: Note initiated : 11/30/21 at 11:37 am Service Date, if different from initiated Date: [] Patient: Alisson Gutierrez 66 y/o F admitted on 11/28/21 for shortness of breath, COPD. Chief Complaint: [SOB] Date of admission: 11/28/21 17:55 Discharge date: 11/30/21 Primary care physician: Rocky Damon MD Admitting clinician: Siva Snyder Consults: 11/28/21 Consult to Physician [CONS] Stat Comment: Consulting Provider: Siva Snyder Reason For Exam: Physician to Consult Attending physician on discharge: Siva Snyder Discharge Meds Discharge Medications Home Medications albuterol sulfate 90 mcg/actuation aerosol inhaler 2 puff INHALATION Q6HP PRN 08/23/20 [History Confirmed 11/28/21 Last Taken 1 Day Ago ~11/27/21] budesonide-formoterol HFA 160 mcg-4.5 mcg/actuation aerosol inhaler (Symbicort) 2 puff INHALATION Q12H #10.2 g 04/06/21 [Rx Confirmed 11/28/21 Last Taken 1 Day Ago ~11/27/21] nebulizer accessories (Adult Aerosol Mask) #1 ea 08/03/21 [Rx Confirmed 11/28/21 Last Taken Unknown] estradiol 1 mg tablet 1 mg PO QDAY #30 tab 09/20/21 [Rx Confirmed 11/28/21 Last Taken Unknown] omeprazole 40 mg capsule,delayed release 40 mg PO QAM #30 cap 09/20/21 [Rx Confirmed 11/28/21 Last Taken Unknown] ipratropium 0.5 mg-albuterol 3 mg (2.5 mg base)/3 mL nebulization soln 3 ml INHALATION TID #270 ml 09/28/21 [Rx Confirmed 11/28/21 Last Taken 1 Day Ago ~11/27/21] nicotine 7 mg/24 hr daily transdermal patch 1 patch TRANSDERMAL Q24H #14 ea 11/23/21 [Rx Confirmed 11/28/21 Last Taken Unknown] azithromycin 500 mg tablet (Zithromax) 500 mg PO QDAY 5 Days #5 tab 11/30/21 [Rx Last Taken Unknown] prednisone 20 mg tablet 40 mg PO QAMCC 3 Days #6 tab 11/30/21 [Rx Last Taken Unknown] COURSE Hospital Course Hospital course: Ms. Gutierrez is a 66 year old F with a past medical history significant for COPD who recently quit smoking approximately 1 month ago presents to the hospital for the second time within a week with complaints of shortness of breath. She states that last week, she was cleaning the bathroom with bleach when she became significantly short of breath. She presented to the hospital and was discharged from the ER with supplemental O2. She denied ongoing cigarette use however it is unclear if she is being truthful. She denies any secondhand smoke exposure. She denies any fevers, chills but did endorse chest tightness. She continued to become increasingly short of breath and presented to the hospital in extremis. She was in a tripod position with minimal air entry bilaterally on auscultation per the ER physician and was placed on positive pressure ventilation with BiPAP as a temporizing measure. She was admitted to the hospitalist service for acute exacerbation of COPD. The patient quite well with aggressive pulmonary toileting, supplemental O2, IV ceftriaxone/Zithromax, duo nebs standing, and Pulmicort standing. She received one-time dose of Solu-Medrol IV and was transition to prednisone 40 mg p.o. daily. Each day, she has made significant progress. Her lungs are still rhonchorous and there is slightly improved air entry bilaterally. She is slow to improve. Smoking cessation counseling was provided. She will need ongoing rehabilitation. It is recommended she follow-up with her primary care physician within 1 week's time. Discharge diagnosis: Acute hypoxemic respiratory failure, community-acquired pneumonia Time spent discussing smoking cessation with patient: 3 to 10 minutes Time Spent with Patient Time attestation: Total time spent providing and/or coordinating discharge services: Time spent: Greater than 30 minutes EXAM Constitutional Vitals: Temp Pulse Resp BP Pulse Ox 96.8 F L 79 16 124/84 91 11/30/21 07:30 11/30/21 08:20 11/30/21 07:35 11/30/21 07:30 11/30/21 08:20 General appearance: average body habitus Head Head exam: Present atraumatic, normal inspection and normocephalic Eye Eye exam: Present EOMI, normal appearance and PERRL; Absent conjunctival injection ENT ENT exam: Present normal exam; Absent mucous membranes dry Neck Neck exam: Present full ROM; Absent lymphadenopathy Respiratory Respiratory exam: Present decreased breath sounds and rhonchi; Absent normal respiratory exam, CTAB, respiratory distress or wheezes Cardiovascular Cardiovascular exam: Present normal rate and rhythm and RRR; Absent JVD GI/Abdominal GI/Abdominal exam: Present normal bowel sounds and soft; Absent diminished bowel sounds, distended, guarding, mass, rebound or tenderness Neurological Exam Neurological exam: Present alert, CN II-XII intact and oriented X3 Psychiatric Psychiatric exam: Present normal affect and normal mood Skin Skin exam: Present intact and warm; Absent erythema, pallor, petechiae or rash Discharge Data Data Completed and Pending Labs on day of discharge: Labs from last 24 hours 11/30/21 05:18 Magnesium 2.4 Discharge Plan Patient/Caregiver Discharge Instructions Activity: as per physical therapy and wear oxygen at all times Diet: Regular Diet Prescriptions: New prednisone 20 mg Tablet 40 mg PO QAMCC 3 Days Qty: 6 0RF azithromycin [Zithromax] 500 mg tablet 500 mg PO QDAY 5 Days Qty: 5 0RF Continued budesonide-formoterol [Symbicort] 160-4.5 mcg/actuation HFA aerosol inhaler 2 puff INHALATION Q12H Qty: 10.2 11RF (DME) Adult Aerosol Mask Misc See Rx Instructions .ROUTE .MEDSUPPLY Qty: 1 1RF Rx Instructions: Nebulizer tubing and mask omeprazole 40 mg capsule,delayed release(DR/EC) 40 mg PO QAM Qty: 30 5RF estradiol 1 mg tablet 1 mg PO QDAY Qty: 30 5RF Label Comments: Awaiting to hear from [facility] pharmacy about refill. Pt states that she,"still takes this." ipratropium-albuterol 0.5 mg-3 mg(2.5 mg base)/3 mL solution for nebulization 3 ml INHALATION TID Qty: 270 6RF albuterol sulfate 90 mcg/actuation HFA aerosol inhaler 2 puff INHALATION Q6HP PRN (Reason: shortness of breath or wheezing) 0RF nicotine 7 mg/24 hr patch 24 hour 1 patch transdermal Q24H Qty: 14 4RF Discontinued hydrocodone-acetaminophen 5-325 mg tablet 1 tab PO TID PRN (Reason: pain) 14 Days Qty: 42 0RF Label Comments: Pt states that she,"used to take, but stopped taking because she ran out." Follow Up Plan Follow up with: Rocky Damon MD [Primary Care Provider] - Patient Disposition: Xfer SNF Prognosis: Fair Rehab Potential: Fair I certify that the patient requires SNF services: Yes Overall status at discharge: patient is progressing back to baseline Discharge Orders: Discharge Order (Routine); Ordered 11/30/21 Ordered By: Siva Snyder
--- NOTE | 2021-12-01 11:30 | EKG ---
[facility] Test Date: 2021-11-28 Pat Name: Alisson Gutierrez Department: ED Room: Gender: Female Project Associate: SB : 1955 Requested By: Nhan Culver Order Number: [id number] Reading MD: Royal Bullock D.O. Measurements Intervals [place] Rate: 91 P: 79 [place]: 162 QRS: 13 QRSD: 94 T: 56 QT: 371 QTc: 457 Interpretive Statements Sinus rhythm Electronically Signed On 12-01-2021 11:30:43 PDT by Royal Bullock D.O. /[id number]/[id number]
== END 2021-11-30 13:36 | DRG 189 ==
LOC: ED 13:22 → ICU 17:55
PROVIDERS: ADMIT Student in an Organized Health Care Education/Training Program; ATTEND Student in an Organized Health Care Education/Training Program